=== PATIENT | male | born 1965 | race African-American/Black ===

== ENCOUNTER 2018-04-26 09:33 | Inpatient (IN) | payer OTHER ==
[2018-04-26] MEDS: CEPHALEXIN MONOHYDRATE 500 MG CAPSULE (UD) PO SCH (00:30)
[2018-04-26 09:54] VITALS: BMI 18.3
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
[2018-04-26] MEDS ORDERED: guaiFENesin/D-METHORPHAN HB 10 ML UNIT-DOSE CUPS PO PRN (12:11)
[2018-04-26] MEDS ORDERED: P-EPHED 60MG/TRIPROLIDI 2.5MG TABLET PO PRN (12:11)
[2018-04-26] MEDS ORDERED: MENTHOL/PHENOL 1 EACH UD MM PRN (12:11)
[2018-04-26] MEDS ORDERED: MAGNESIUM HYDROX 2400MG/30ML ORAL SUSPENSION 30 ML CUP PO PRN (12:11)
[2018-04-26] MEDS ORDERED: MAGNESIUM CITRATE 300 ML BOTTLE PO PRN (12:11)
[2018-04-26] MEDS ORDERED: LOPERAMIDE HCL 2 MG CAPSULE PO PRN (12:11)
[2018-04-26] MEDS ORDERED: INSULIN (NOVOLOG) ASPART 100 UNITS/ML 10ML VIAL SQ ONE (12:30)
[2018-04-26 16:11] LABS: ALK PHOS 66 U/L (45-117); ANION GAP 7 MMOL/L (8-16); BILIRUBIN,TOTAL 0.2 mg/dL (0.2-1); BLOOD UREA NITROGEN 11 mg/dL (7-18); CALCIUM 8.4 mg/dL (8.5-10.1); CHLORIDE 95 mmol/L (98-107); CO2 27 mmol/L (21-32); CREATININE 0.8 mg/dL (0.55-1.3); POTASSIUM 4.6 mmol/L (3.5-5.1); SGOT/AST 11 U/L (15-37); SGPT/ALT 18 U/L (13-61); SODIUM 130 mmol/L (136-145); TOT PROT 7.6 g/dl (6.4-8.2)
[2018-04-26 16:13] LABS: GLUCOSE,RANDOM 515 mg/dL (74-106)
[2018-04-26 16:18] LABS: HEMATOCRIT 34.5 % (35.4-49); HEMOGLOBIN 11.7 GM/dL (11.7-16.9); MCH 34.6 pg (25.7-33.7); MCHC 34.1 g/dl (32.0-35.9); MEAN CELL VOLUME 101.7 fl (80-96); MEAN PLT VOLUME 8.1 fl (7.5-11.1); PLATELET COUNT 250 K/MM3 (134-434); RBC 3.39 M/mm3 (4.00-5.60); RDW 14.2 % (11.9-15.9); WHITE BLOOD COUNT 7.3 K/mm3 (4.0-10.0)
[2018-04-26] MEDS ORDERED: INSULIN (NOVOLOG) ASPART 100 UNITS/ML 10ML VIAL ONE ×2 (17:02→22:17)
[2018-04-26] MEDS ORDERED: TUBERCULIN PPD 5 TU/0.1ML VIAL ID ONE (17:02)
[2018-04-26] MEDS: INSULIN (NOVOLOG) ASPART 100 UNITS/ML 10ML VIAL SQ SCH ×2 (17:08→22:15)
[2018-04-26] MEDS: ASPIRIN 81 MG CHEWABLE TABLETS PO SCH (17:40)
[2018-04-26 17:55] LABS: URINE APPEARANCE CLEAR; URINE BILIRUBIN NEGATIVE (<2.0 mg/dL); URINE COLOR LTYELLOW; URINE GLUCOSE (UA) 3+ (NEGATIVE); URINE KETONE NEGATIVE (NEGATIVE); URINE LEUK ESTERASE NEGATIVE (NEGATIVE); URINE NITRITE NEGATIVE (NEGATIVE); URINE PROTEIN NEGATIVE (NEGATIVE); URINE UROBILINOGEN NEGATIVE mg/dL (0.2-1.0)
[2018-04-26 18:56] LABS: SICKLE CELL SCREEN NEGATIVE (NEGATIVE)
[2018-04-26] MEDS: THIAMINE HCL 100 MG TABLET (FP) PO SCH (22:06)
[2018-04-26] MEDS: MELATONIN 5 MG TABLETS PO PRN (22:09)
[2018-04-26] MEDS: IBUPROFEN 400 MG TABLET (FP) PO PRN (22:11)
[2018-04-26] MEDS: TOLNAFTATE 1% CREAM 15 GM TUBE TP SCH (23:25)
[2018-04-26] MEDS: BACITRACIN 0.9 GM PACKET TP SCH (23:25)
--- NOTE | 2018-04-26 23:25 | PN ---
S Progress Note (SOAP) Subjective: c/o pain in both feet and toe areas. Increased pain (sharp to "9") when feet palpated. Foot problems for months and expressed concern that may need an amputation in the future. Objective: A & O x 3. Gait steady. Both feet w/ increased whitish dry, flaky skin and cracks in toe folds at bases. Dorsum of both feet w/ superficial cracks and increased erythema and warmth. No lesions or exudate. Tenderness of toes and feet upon palpation. Pedal pulse present bilaterally. (+) pitting edema toes to ankle. Vital Signs 04/26/18 21:00 Pulse Rate 123 H Blood Pressure 110/71 04/26/18 04/26/18 12:57 12:57 WBC 7.3 RBC 3.39 L Hgb 11.7 Hct 34.5 L MCV 101.7 H MCHC 34.1 RDW 14.2 Plt Count 250 Sodium 130 L Potassium 4.6 Chloride 95 L Carbon Dioxide 27 Anion Gap 7 L BUN 11 Creatinine 0.8 CMP Sodium 130 mmol/L (136-145) L 04/26/18 12:57 Potassium 4.6 mmol/L (3.5-5.1) 04/26/18 12:57 Chloride 95 mmol/L (98-107) L 04/26/18 12:57 Carbon Dioxide 27 mmol/L (21-32) 04/26/18 12:57 Anion Gap 7 MMOL/L (8-16) L 04/26/18 12:57 BUN 11 mg/dL (7-18) 04/26/18 12:57 Creatinine 0.8 mg/dL (0.55-1.3) 04/26/18 12:57 Creat Clearance w eGFR > 60 (>60) 04/26/18 12:57 POC Glucometer 436 UNITS (80-120) 04/26/18 20:33 Random Glucose 515 mg/dL (74-106) H* 04/26/18 12:57 Calcium 8.4 mg/dL (8.5-10.1) L 04/26/18 12:57 Total Bilirubin 0.2 mg/dL (0.2-1) 04/26/18 12:57 AST 11 U/L (15-37) L 04/26/18 12:57 ALT 18 U/L (13-61) 04/26/18 12:57 Alkaline Phosphatase 66 U/L (45-117) 04/26/18 12:57 Total Protein 7.6 g/dl (6.4-8.2) 04/26/18 12:57 Albumin 2.0 g/dl (3.4-5.0) L 04/26/18 12:57 Labs reviewed. Assessment: Uncontrolled DM Tinea Pedis Dorsal Cellulitis both feet. Plan: Tolnaftate cream and bacitracin cream to toes and feet. Keflex 500 mg PO Q6H Continue Novolog sliding scale.
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
[2018-04-27] MEDS: CEPHALEXIN MONOHYDRATE 500 MG CAPSULE (UD) PO SCH ×3 (06:25→18:59)
[2018-04-27] MEDS ORDERED: INSULIN (NOVOLOG) ASPART 100 UNITS/ML 10ML VIAL ONE ×2 (07:51→12:13)
[2018-04-27] MEDS: INSULIN (NOVOLOG) ASPART 100 UNITS/ML 10ML VIAL SQ SCH ×4 (07:52→22:22)
--- NOTE | 2018-04-27 10:34 | EKG ---
Test Reason : Blood Pressure : / mmHG Vent. Rate : 094 BPM Atrial Rate : 094 BPM P-R Int : 116 ms QRS Dur : 086 ms QT Int : 352 ms P-R-T Axes : 082 071 082 degrees QTc Int : 440 ms NORMAL SINUS RHYTHM NORMAL ECG NO PREVIOUS ECGS AVAILABLE Confirmed by Nick Knight MD ([id number]) on 04/27/2018 10:34:13 AM Referred By: Confirmed By:Nick Knight MD
[2018-04-27] MEDS: PRENATAL VITAMINS W/ FOLIC ACID TABLET (FP) PO SCH (10:51)
[2018-04-27] MEDS: ASPIRIN 81 MG CHEWABLE TABLETS PO SCH (10:51)
[2018-04-27] MEDS: BACITRACIN 0.9 GM PACKET TP SCH ×2 (10:51→22:08)
[2018-04-27] MEDS: NICOTINE 21 MG/24 HOURS TOPICAL PATCH TD SCH (10:52)
[2018-04-27] MEDS: IBUPROFEN 400 MG TABLET (FP) PO PRN (10:52)
[2018-04-27] MEDS: TOLNAFTATE 1% CREAM 15 GM TUBE TP SCH ×2 (10:54→22:09)
[2018-04-27] MEDS: THIAMINE HCL 100 MG TABLET (FP) PO SCH (22:08)
[2018-04-27] MEDS: MELATONIN 5 MG TABLETS PO PRN (22:09)
[2018-04-27] MEDS: ACETAMINOPHEN 325 MG TABLET (FP) PO PRN (22:10)
[2018-04-28] MEDS: CEPHALEXIN MONOHYDRATE 500 MG CAPSULE (UD) PO SCH ×5 (00:42→23:01)
[2018-04-28] MEDS ORDERED: INSULIN (NOVOLOG) ASPART 100 UNITS/ML 10ML VIAL ONE ×3 (07:32→16:53)
[2018-04-28] MEDS: INSULIN (NOVOLOG) ASPART 100 UNITS/ML 10ML VIAL SQ SCH ×4 (07:46→21:54)
[2018-04-28] MEDS: IBUPROFEN 400 MG TABLET (FP) PO PRN (09:38)
[2018-04-28] MEDS: ASPIRIN 81 MG CHEWABLE TABLETS PO SCH (10:13)
[2018-04-28] MEDS: BACITRACIN 0.9 GM PACKET TP SCH ×2 (10:13→21:52)
[2018-04-28] MEDS: NICOTINE 21 MG/24 HOURS TOPICAL PATCH TD SCH (10:14)
[2018-04-28] MEDS: TOLNAFTATE 1% CREAM 15 GM TUBE TP SCH ×2 (10:14→22:02)
[2018-04-28] MEDS: PRENATAL VITAMINS W/ FOLIC ACID TABLET (FP) PO SCH (10:14)
--- NOTE | 2018-04-28 14:08 | PN ---
[facility] Progress Note Note: PT WAS UNABLE TO FURNISH COMPLETE INFORMATION ON HIS CURRENT MEDICATIONS ON ADMISSION. PT'S OUTSIDE PHARMACY ONLINE INDICATED PT'S MEDS WHICH WERE FILLED AT [facility] ON [address] [place] [address] PH: [phone]. NURSE YFN CALLED AND VERIFIED HIS MEDICATIONS WITH THE PHARMACIST, MS REID. IN THE HOME MED LIST HERE. PT'S RX PRESCRIBER IS GIVEN ALBERT BRADY AT [facility], PH:[phone] [id number]. PT HAS BEEN C/O FEET PAIN WITH NUMBNESS,DRY, SCALY, SLIGHTLY SWOLLEN RIGHT FOOT > LEFT AND A HX OF PERIPHERAL NEUROPATHY. AND STATES ON MEDICINE FOR FEET PAIN. CURRENTLY ON KEFLEX FOR CELLULITIS OF RIGHT FOOT. Vital Signs 04/28/18 06:52 Temperature 98.2 F Pulse Rate 73 Respiratory 16 Rate Blood Pressure 123/74 Laboratory Tests 04/26/18 04/26/18 04/26/18 11:52 12:57 12:57 WBC 7.3 RBC 3.39 L Hgb 11.7 Hct 34.5 L MCV 101.7 H MCH 34.6 H MCHC 34.1 RDW 14.2 Plt Count 250 MPV 8.1 Sickle Cell Screen Negative Sodium 130 L Potassium 4.6 Chloride 95 L Carbon Dioxide 27 Anion Gap 7 L BUN 11 Creatinine 0.8 Creat Clearance w eGFR > 60 POC Glucometer 569 Random Glucose 515 H* Calcium 8.4 L Total Bilirubin 0.2 AST 11 L ALT 18 Alkaline Phosphatase 66 Total Protein 7.6 Albumin 2.0 L Urine Color Urine Appearance Urine pH Ur Specific [place] Urine Protein Urine Glucose (UA) Urine Ketones Urine Blood Urine Nitrite Urine Bilirubin Urine Urobilinogen Ur Leukocyte Esterase RPR Titer 04/26/18 04/26/18 04/26/18 12:57 15:25 17:00 WBC RBC Hgb Hct MCV MCH MCHC RDW Plt Count MPV Sickle Cell Screen Sodium Potassium Chloride Carbon Dioxide Anion Gap BUN Creatinine Creat Clearance w eGFR POC Glucometer 507 Random Glucose Calcium Total Bilirubin AST ALT Alkaline Phosphatase Total Protein Albumin Urine Color Ltyellow Urine Appearance Clear Urine pH 6.0 Ur Specific [place] 1.030 Urine Protein Negative Urine Glucose (UA) 3+ H Urine Ketones Negative Urine Blood Negative Urine Nitrite Negative Urine Bilirubin Negative Urine Urobilinogen Negative Ur Leukocyte Esterase Negative RPR Titer Nonreactive 04/26/18 04/27/18 04/27/18 20:33 06:27 12:07 WBC RBC Hgb Hct MCV MCH MCHC RDW Plt Count MPV Sickle Cell Screen Sodium Potassium Chloride Carbon Dioxide Anion Gap BUN Creatinine Creat Clearance w eGFR POC Glucometer 436 311 > 600 Random Glucose Calcium Total Bilirubin AST ALT Alkaline Phosphatase Total Protein Albumin Urine Color Urine Appearance Urine pH Ur Specific [place] Urine Protein Urine Glucose (UA) Urine Ketones Urine Blood Urine Nitrite Urine Bilirubin Urine Urobilinogen Ur Leukocyte Esterase RPR Titer 04/27/18 04/27/18 04/27/18 12:10 16:57 22:17 WBC RBC Hgb Hct MCV MCH MCHC RDW Plt Count MPV Sickle Cell Screen Sodium Potassium Chloride Carbon Dioxide Anion Gap BUN Creatinine Creat Clearance w eGFR POC Glucometer 434 446 409 Random Glucose Calcium Total Bilirubin AST ALT Alkaline Phosphatase Total Protein Albumin Urine Color Urine Appearance Urine pH Ur Specific [place] Urine Protein Urine Glucose (UA) Urine Ketones Urine Blood Urine Nitrite Urine Bilirubin Urine Urobilinogen Ur Leukocyte Esterase RPR Titer 04/28/18 04/28/18 06:22 11:55 WBC RBC Hgb Hct MCV MCH MCHC RDW Plt Count MPV Sickle Cell Screen Sodium Potassium Chloride Carbon Dioxide Anion Gap BUN Creatinine Creat Clearance w eGFR POC Glucometer 319 540 Random Glucose Calcium Total Bilirubin AST ALT Alkaline Phosphatase Total Protein Albumin Urine Color Urine Appearance Urine pH Ur Specific [place] Urine Protein Urine Glucose (UA) Urine Ketones Urine Blood Urine Nitrite Urine Bilirubin Urine Urobilinogen Ur Leukocyte Esterase RPR Titer IMPRESSION:UNCONTROLLED DM PLAN:RESTART BASAL INSULIN 20 UNITS HS DIRECTED RE-EVALUATE AND ADJUST NEEDED GABAPENTIN 300 MG PO BID HOLD BP MEDS LISINOPRIL 20 MG/HCTZ 12.5 MG
[2018-04-28] MEDS: THIAMINE HCL 100 MG TABLET (FP) PO SCH (21:55)
[2018-04-28] MEDS: GABAPENTIN 300 MG CAPSULE (FP) PO SCH (21:57)
[2018-04-28] MEDS: hydrOXYzine PAMOATE 25 MG CAPSULE (FP) PO PRN (21:57)
[2018-04-28] MEDS: INSULIN (LEVEMIR) 100 UNITS/ML UNITS SQ SCH (21:57)
[2018-04-29] MEDS: CEPHALEXIN MONOHYDRATE 500 MG CAPSULE (UD) PO SCH ×3 (06:39→18:38)
[2018-04-29] MEDS: INSULIN (NOVOLOG) ASPART 100 UNITS/ML 10ML VIAL SQ SCH ×4 (07:25→21:58)
[2018-04-29] MEDS: PRENATAL VITAMINS W/ FOLIC ACID TABLET (FP) PO SCH (10:24)
[2018-04-29] MEDS: GABAPENTIN 300 MG CAPSULE (FP) PO SCH ×2 (10:24→21:55)
[2018-04-29] MEDS: BACITRACIN 0.9 GM PACKET TP SCH ×2 (10:24→21:55)
[2018-04-29] MEDS: ASPIRIN 81 MG CHEWABLE TABLETS PO SCH (10:24)
[2018-04-29] MEDS: TOLNAFTATE 1% CREAM 15 GM TUBE TP SCH ×2 (10:25→22:00)
[2018-04-29] MEDS: NICOTINE 21 MG/24 HOURS TOPICAL PATCH TD SCH (10:25)
[2018-04-29] MEDS ORDERED: INSULIN (NOVOLOG) ASPART 100 UNITS/ML 10ML VIAL ONE ×3 (12:06→22:14)
[2018-04-29] MEDS: INSULIN (LEVEMIR) 100 UNITS/ML UNITS SQ SCH (21:55)
[2018-04-29] MEDS: THIAMINE HCL 100 MG TABLET (FP) PO SCH (21:55)
[2018-04-29] MEDS: MELATONIN 5 MG TABLETS PO PRN (21:59)
[2018-04-29] MEDS: IBUPROFEN 400 MG TABLET (FP) PO PRN (21:59)
[2018-04-30] MEDS: CEPHALEXIN MONOHYDRATE 500 MG CAPSULE (UD) PO SCH ×5 (00:01→23:20)
[2018-04-30] MEDS: INSULIN (NOVOLOG) ASPART 100 UNITS/ML 10ML VIAL SQ SCH ×4 (06:29→22:12)
[2018-04-30] MEDS: BACITRACIN 0.9 GM PACKET TP SCH ×2 (10:18→22:12)
[2018-04-30] MEDS: PRENATAL VITAMINS W/ FOLIC ACID TABLET (FP) PO SCH (10:18)
[2018-04-30] MEDS: ASPIRIN 81 MG CHEWABLE TABLETS PO SCH (10:18)
[2018-04-30] MEDS: GABAPENTIN 300 MG CAPSULE (FP) PO SCH ×2 (10:18→22:19)
[2018-04-30] MEDS: NICOTINE 21 MG/24 HOURS TOPICAL PATCH TD SCH (10:19)
[2018-04-30] MEDS: TOLNAFTATE 1% CREAM 15 GM TUBE TP SCH ×2 (10:20→22:12)
[2018-04-30] MEDS ORDERED: INSULIN (NOVOLOG) ASPART 100 UNITS/ML 10ML VIAL ONE (12:06)
[2018-04-30] MEDS: MELATONIN 5 MG TABLETS PO PRN (22:09)
[2018-04-30] MEDS: THIAMINE HCL 100 MG TABLET (FP) PO SCH (22:09)
[2018-04-30] MEDS: hydrOXYzine PAMOATE 25 MG CAPSULE (FP) PO PRN (22:11)
[2018-04-30] MEDS: ACETAMINOPHEN 325 MG TABLET (FP) PO PRN (22:11)
[2018-04-30] MEDS: INSULIN (LEVEMIR) 100 UNITS/ML UNITS SQ SCH (22:13)
[2018-05-01] MEDS: CEPHALEXIN MONOHYDRATE 500 MG CAPSULE (UD) PO SCH ×4 (06:14→23:15)
[2018-05-01] MEDS: INSULIN (NOVOLOG) ASPART 100 UNITS/ML 10ML VIAL SQ SCH ×4 (06:16→21:11)
[2018-05-01] MEDS: PRENATAL VITAMINS W/ FOLIC ACID TABLET (FP) PO SCH (10:14)
[2018-05-01] MEDS: ASPIRIN 81 MG CHEWABLE TABLETS PO SCH (10:14)
[2018-05-01] MEDS: GABAPENTIN 300 MG CAPSULE (FP) PO SCH ×2 (10:14→22:11)
[2018-05-01] MEDS: BACITRACIN 0.9 GM PACKET TP SCH ×2 (10:15→22:09)
[2018-05-01] MEDS: TOLNAFTATE 1% CREAM 15 GM TUBE TP SCH ×2 (10:15→22:12)
[2018-05-01] MEDS: NICOTINE 21 MG/24 HOURS TOPICAL PATCH TD SCH (10:15)
[2018-05-01] MEDS ORDERED: INSULIN (NOVOLOG) ASPART 100 UNITS/ML 10ML VIAL ONE ×3 (12:00→20:33)
[2018-05-01] MEDS: ACETAMINOPHEN 325 MG TABLET (FP) PO PRN (20:28)
[2018-05-01] MEDS: INSULIN (LEVEMIR) 100 UNITS/ML UNITS SQ SCH (21:10)
[2018-05-01] MEDS: MELATONIN 5 MG TABLETS PO PRN (22:10)
[2018-05-01] MEDS: THIAMINE HCL 100 MG TABLET (FP) PO SCH (22:12)
[2018-05-02] MEDS: CEPHALEXIN MONOHYDRATE 500 MG CAPSULE (UD) PO SCH ×4 (06:52→23:41)
[2018-05-02] MEDS: INSULIN (NOVOLOG) ASPART 100 UNITS/ML 10ML VIAL SQ SCH ×4 (06:53→21:42)
[2018-05-02] MEDS: ASPIRIN 81 MG CHEWABLE TABLETS PO SCH (10:15)
[2018-05-02] MEDS: BACITRACIN 0.9 GM PACKET TP SCH ×2 (10:15→21:44)
[2018-05-02] MEDS: GABAPENTIN 300 MG CAPSULE (FP) PO SCH ×2 (10:15→21:44)
[2018-05-02] MEDS: TOLNAFTATE 1% CREAM 15 GM TUBE TP SCH ×2 (10:16→21:45)
[2018-05-02] MEDS: NICOTINE 21 MG/24 HOURS TOPICAL PATCH TD SCH (10:16)
[2018-05-02] MEDS: PRENATAL VITAMINS W/ FOLIC ACID TABLET (FP) PO SCH (10:16)
[2018-05-02] MEDS: ACETAMINOPHEN 325 MG TABLET (FP) PO PRN (10:17)
[2018-05-02] MEDS ORDERED: INSULIN (NOVOLOG) ASPART 100 UNITS/ML 10ML VIAL ONE (11:42)
[2018-05-02] MEDS: INSULIN (LEVEMIR) 100 UNITS/ML UNITS SQ SCH (21:41)
[2018-05-02] MEDS: THIAMINE HCL 100 MG TABLET (FP) PO SCH (21:44)
[2018-05-02] MEDS: IBUPROFEN 400 MG TABLET (FP) PO PRN (21:44)
[2018-05-02] MEDS: MELATONIN 5 MG TABLETS PO PRN (21:45)
[2018-05-02] MEDS: MAG HYDROX/AL HYDROX/SIMETH 30 ML UNIT-DOSE CUP PO PRN (23:36)
[2018-05-03] MEDS: CEPHALEXIN MONOHYDRATE 500 MG CAPSULE (UD) PO SCH ×4 (06:07→23:24)
[2018-05-03] MEDS: INSULIN (NOVOLOG) ASPART 100 UNITS/ML 10ML VIAL SQ SCH ×4 (06:08→21:47)
[2018-05-03] MEDS: GABAPENTIN 300 MG CAPSULE (FP) PO SCH ×3 (10:45→21:44)
[2018-05-03] MEDS: PRENATAL VITAMINS W/ FOLIC ACID TABLET (FP) PO SCH (10:45)
[2018-05-03] MEDS: BACITRACIN 0.9 GM PACKET TP SCH ×2 (10:45→21:44)
[2018-05-03] MEDS: ASPIRIN 81 MG CHEWABLE TABLETS PO SCH (10:45)
[2018-05-03] MEDS: TOLNAFTATE 1% CREAM 15 GM TUBE TP SCH ×2 (10:46→21:50)
[2018-05-03] MEDS: NICOTINE 21 MG/24 HOURS TOPICAL PATCH TD SCH (10:46)
[2018-05-03] MEDS: IBUPROFEN 400 MG TABLET (FP) PO PRN ×2 (10:48→21:46)
--- NOTE | 2018-05-03 11:01 | PN ---
[facility] Progress Note Note: PT REPORTS NEUROPATHY SYMPTOMS AND REQUESTING INCREASE IN GABAPENTIN FREQUENCY. ALSO REPORTS FASTING BLOOD SUGAR RESULT IS LOW IN THE MORNING AND WANTS TO STAY ON 2O UNITS OF BASAL INSULIN. Vital Signs 05/03/18 07:04 Temperature 98.6 F Pulse Rate 86 Respiratory 16 Rate Blood Pressure 116/74 Laboratory Tests 04/26/18 04/26/18 04/26/18 11:52 12:57 12:57 WBC 7.3 RBC 3.39 L Hgb 11.7 Hct 34.5 L MCV 101.7 H MCH 34.6 H MCHC 34.1 RDW 14.2 Plt Count 250 MPV 8.1 Sickle Cell Screen Negative Sodium 130 L Potassium 4.6 Chloride 95 L Carbon Dioxide 27 Anion Gap 7 L BUN 11 Creatinine 0.8 Creat Clearance w eGFR > 60 POC Glucometer 569 Random Glucose 515 H* Calcium 8.4 L Total Bilirubin 0.2 AST 11 L ALT 18 Alkaline Phosphatase 66 Total Protein 7.6 Albumin 2.0 L Urine Color Urine Appearance Urine pH Ur Specific [place] Urine Protein Urine Glucose (UA) Urine Ketones Urine Blood Urine Nitrite Urine Bilirubin Urine Urobilinogen Ur Leukocyte Esterase RPR Titer 04/26/18 04/26/18 04/26/18 12:57 15:25 17:00 WBC RBC Hgb Hct MCV MCH MCHC RDW Plt Count MPV Sickle Cell Screen Sodium Potassium Chloride Carbon Dioxide Anion Gap BUN Creatinine Creat Clearance w eGFR POC Glucometer 507 Random Glucose Calcium Total Bilirubin AST ALT Alkaline Phosphatase Total Protein Albumin Urine Color Ltyellow Urine Appearance Clear Urine pH 6.0 Ur Specific [place] 1.030 Urine Protein Negative Urine Glucose (UA) 3+ H Urine Ketones Negative Urine Blood Negative Urine Nitrite Negative Urine Bilirubin Negative Urine Urobilinogen Negative Ur Leukocyte Esterase Negative RPR Titer Nonreactive 04/26/18 04/27/18 04/27/18 20:33 06:27 12:07 WBC RBC Hgb Hct MCV MCH MCHC RDW Plt Count MPV Sickle Cell Screen Sodium Potassium Chloride Carbon Dioxide Anion Gap BUN Creatinine Creat Clearance w eGFR POC Glucometer 436 311 > 600 Random Glucose Calcium Total Bilirubin AST ALT Alkaline Phosphatase Total Protein Albumin Urine Color Urine Appearance Urine pH Ur Specific [place] Urine Protein Urine Glucose (UA) Urine Ketones Urine Blood Urine Nitrite Urine Bilirubin Urine Urobilinogen Ur Leukocyte Esterase RPR Titer 04/27/18 04/27/18 04/27/18 12:10 16:57 22:17 WBC RBC Hgb Hct MCV MCH MCHC RDW Plt Count MPV Sickle Cell Screen Sodium Potassium Chloride Carbon Dioxide Anion Gap BUN Creatinine Creat Clearance w eGFR POC Glucometer 434 446 409 Random Glucose Calcium Total Bilirubin AST ALT Alkaline Phosphatase Total Protein Albumin Urine Color Urine Appearance Urine pH Ur Specific [place] Urine Protein Urine Glucose (UA) Urine Ketones Urine Blood Urine Nitrite Urine Bilirubin Urine Urobilinogen Ur Leukocyte Esterase RPR Titer 04/28/18 04/28/18 04/28/18 06:22 11:55 16:48 WBC RBC Hgb Hct MCV MCH MCHC RDW Plt Count MPV Sickle Cell Screen Sodium Potassium Chloride Carbon Dioxide Anion Gap BUN Creatinine Creat Clearance w eGFR POC Glucometer 319 540 430 Random Glucose Calcium Total Bilirubin AST ALT Alkaline Phosphatase Total Protein Albumin Urine Color Urine Appearance Urine pH Ur Specific [place] Urine Protein Urine Glucose (UA) Urine Ketones Urine Blood Urine Nitrite Urine Bilirubin Urine Urobilinogen Ur Leukocyte Esterase RPR Titer 04/28/18 04/29/18 04/29/18 20:45 06:41 11:55 WBC RBC Hgb Hct MCV MCH MCHC RDW Plt Count MPV Sickle Cell Screen Sodium Potassium Chloride Carbon Dioxide Anion Gap BUN Creatinine Creat Clearance w eGFR POC Glucometer 376 111 467 Random Glucose Calcium Total Bilirubin AST ALT Alkaline Phosphatase Total Protein Albumin Urine Color Urine Appearance Urine pH Ur Specific [place] Urine Protein Urine Glucose (UA) Urine Ketones Urine Blood Urine Nitrite Urine Bilirubin Urine Urobilinogen Ur Leukocyte Esterase RPR Titer 04/29/18 04/29/18 04/30/18 16:31 20:50 06:28 WBC RBC Hgb Hct MCV MCH MCHC RDW Plt Count MPV Sickle Cell Screen Sodium Potassium Chloride Carbon Dioxide Anion Gap BUN Creatinine Creat Clearance w eGFR POC Glucometer 364 449 103 Random Glucose Calcium Total Bilirubin AST ALT Alkaline Phosphatase Total Protein Albumin Urine Color Urine Appearance Urine pH Ur Specific [place] Urine Protein Urine Glucose (UA) Urine Ketones Urine Blood Urine Nitrite Urine Bilirubin Urine Urobilinogen Ur Leukocyte Esterase RPR Titer 04/30/18 04/30/18 04/30/18 12:01 16:48 20:31 WBC RBC Hgb Hct MCV MCH MCHC RDW Plt Count MPV Sickle Cell Screen Sodium Potassium Chloride Carbon Dioxide Anion Gap BUN Creatinine Creat Clearance w eGFR POC Glucometer 394 383 341 Random Glucose Calcium Total Bilirubin AST ALT Alkaline Phosphatase Total Protein Albumin Urine Color Urine Appearance Urine pH Ur Specific [place] Urine Protein Urine Glucose (UA) Urine Ketones Urine Blood Urine Nitrite Urine Bilirubin Urine Urobilinogen Ur Leukocyte Esterase RPR Titer 05/01/18 05/01/18 05/01/18 06:15 11:11 16:36 WBC RBC Hgb Hct MCV MCH MCHC RDW Plt Count MPV Sickle Cell Screen Sodium Potassium Chloride Carbon Dioxide Anion Gap BUN Creatinine Creat Clearance w eGFR POC Glucometer 115 449 402 Random Glucose Calcium Total Bilirubin AST ALT Alkaline Phosphatase Total Protein Albumin Urine Color Urine Appearance Urine pH Ur Specific [place] Urine Protein Urine Glucose (UA) Urine Ketones Urine Blood Urine Nitrite Urine Bilirubin Urine Urobilinogen Ur Leukocyte Esterase RPR Titer 05/01/18 05/02/18 05/02/18 20:25 06:52 11:40 WBC RBC Hgb Hct MCV MCH MCHC RDW Plt Count MPV Sickle Cell Screen Sodium Potassium Chloride Carbon Dioxide Anion Gap BUN Creatinine Creat Clearance w eGFR POC Glucometer 385 143 478 Random Glucose Calcium Total Bilirubin AST ALT Alkaline Phosphatase Total Protein Albumin Urine Color Urine Appearance Urine pH Ur Specific [place] Urine Protein Urine Glucose (UA) Urine Ketones Urine Blood Urine Nitrite Urine Bilirubin Urine Urobilinogen Ur Leukocyte Esterase RPR Titer 05/02/18 05/02/18 05/03/18 17:01 21:39 06:07 WBC RBC Hgb Hct MCV MCH MCHC RDW Plt Count MPV Sickle Cell Screen Sodium Potassium Chloride Carbon Dioxide Anion Gap BUN Creatinine Creat Clearance w eGFR POC Glucometer 378 382 112 Random Glucose Calcium Total Bilirubin AST ALT Alkaline Phosphatase Total Protein Albumin Urine Color Urine Appearance Urine pH Ur Specific [place] Urine Protein Urine Glucose (UA) Urine Ketones Urine Blood Urine Nitrite Urine Bilirubin Urine Urobilinogen Ur Leukocyte Esterase RPR Titer A:CHRONIC PAIN HX NEUROPATHY PLAN:GABAPENTIN 300 MG PO TID
[2018-05-03] MEDS ORDERED: INSULIN (NOVOLOG) ASPART 100 UNITS/ML 10ML VIAL ONE ×3 (12:01→22:43)
[2018-05-03] MEDS: THIAMINE HCL 100 MG TABLET (FP) PO SCH (21:44)
[2018-05-03] MEDS: MELATONIN 5 MG TABLETS PO PRN (21:46)
[2018-05-03] MEDS: MAG HYDROX/AL HYDROX/SIMETH 30 ML UNIT-DOSE CUP PO PRN (21:47)
[2018-05-03] MEDS: INSULIN (LEVEMIR) 100 UNITS/ML UNITS SQ SCH (21:49)
[2018-05-04] MEDS: CEPHALEXIN MONOHYDRATE 500 MG CAPSULE (UD) PO SCH ×3 (06:26→17:07)
[2018-05-04] MEDS: GABAPENTIN 300 MG CAPSULE (FP) PO SCH ×3 (06:26→21:09)
[2018-05-04] MEDS: INSULIN (NOVOLOG) ASPART 100 UNITS/ML 10ML VIAL SQ SCH ×4 (06:26→21:08)
[2018-05-04] MEDS: TOLNAFTATE 1% CREAM 15 GM TUBE TP SCH ×2 (10:39→21:10)
[2018-05-04] MEDS: NICOTINE 21 MG/24 HOURS TOPICAL PATCH TD SCH (10:39)
[2018-05-04] MEDS: PRENATAL VITAMINS W/ FOLIC ACID TABLET (FP) PO SCH (10:39)
[2018-05-04] MEDS: ASPIRIN 81 MG CHEWABLE TABLETS PO SCH (10:39)
[2018-05-04] MEDS: BACITRACIN 0.9 GM PACKET TP SCH ×2 (10:39→21:05)
[2018-05-04] MEDS ORDERED: INSULIN (NOVOLOG) ASPART 100 UNITS/ML 10ML VIAL ONE ×2 (12:01→21:08)
[2018-05-04] MEDS: INSULIN (LEVEMIR) 100 UNITS/ML UNITS SQ SCH (21:05)
[2018-05-04] MEDS: MELATONIN 5 MG TABLETS PO PRN (21:09)
[2018-05-04] MEDS: THIAMINE HCL 100 MG TABLET (FP) PO SCH (21:10)
[2018-05-05] MEDS: CEPHALEXIN MONOHYDRATE 500 MG CAPSULE (UD) PO SCH ×5 (00:09→23:10)
[2018-05-05] MEDS: GABAPENTIN 300 MG CAPSULE (FP) PO SCH ×3 (06:16→21:05)
[2018-05-05] MEDS: INSULIN (NOVOLOG) ASPART 100 UNITS/ML 10ML VIAL SQ SCH ×4 (06:17→21:05)
[2018-05-05] MEDS: BACITRACIN 0.9 GM PACKET TP SCH ×2 (10:28→22:21)
[2018-05-05] MEDS: PRENATAL VITAMINS W/ FOLIC ACID TABLET (FP) PO SCH (10:28)
[2018-05-05] MEDS: TOLNAFTATE 1% CREAM 15 GM TUBE TP SCH ×2 (10:28→22:21)
[2018-05-05] MEDS: NICOTINE 21 MG/24 HOURS TOPICAL PATCH TD SCH (10:28)
[2018-05-05] MEDS: ASPIRIN 81 MG CHEWABLE TABLETS PO SCH (10:28)
[2018-05-05] MEDS: IBUPROFEN 400 MG TABLET (FP) PO PRN ×2 (10:29→21:08)
[2018-05-05] MEDS ORDERED: INSULIN (NOVOLOG) ASPART 100 UNITS/ML 10ML VIAL ONE ×4 (11:51→22:26)
[2018-05-05] MEDS ORDERED: INSULIN (LEVEMIR) 100 UNITS/ML UNITS SQ ONE (20:45)
[2018-05-05] MEDS: THIAMINE HCL 100 MG TABLET (FP) PO SCH (21:05)
[2018-05-05] MEDS: INSULIN (LEVEMIR) 100 UNITS/ML UNITS SQ SCH (21:06)
[2018-05-05] MEDS: MELATONIN 5 MG TABLETS PO PRN (21:08)
[2018-05-06] MEDS: CEPHALEXIN MONOHYDRATE 500 MG CAPSULE (UD) PO SCH ×3 (06:31→17:14)
[2018-05-06] MEDS: GABAPENTIN 300 MG CAPSULE (FP) PO SCH ×3 (06:31→21:49)
[2018-05-06] MEDS: INSULIN (NOVOLOG) ASPART 100 UNITS/ML 10ML VIAL SQ SCH ×4 (06:31→21:48)
[2018-05-06] MEDS: ASPIRIN 81 MG CHEWABLE TABLETS PO SCH (11:05)
[2018-05-06] MEDS: PRENATAL VITAMINS W/ FOLIC ACID TABLET (FP) PO SCH (11:05)
[2018-05-06] MEDS: BACITRACIN 0.9 GM PACKET TP SCH ×2 (11:05→22:15)
[2018-05-06] MEDS: NICOTINE 21 MG/24 HOURS TOPICAL PATCH TD SCH (11:05)
[2018-05-06] MEDS: TOLNAFTATE 1% CREAM 15 GM TUBE TP SCH ×2 (11:06→22:15)
[2018-05-06] MEDS ORDERED: INSULIN (NOVOLOG) ASPART 100 UNITS/ML 10ML VIAL ONE ×2 (11:49→16:41)
--- NOTE | 2018-05-06 17:59 | PN ---
Psychiatric Progress Note Vital Signs: Vital Signs Period Temp Pulse Resp BP Sys/Griggs Pulse Ox Last 24 Hr 98.9 F 86 16-18 120/83 Date of Session: 05/05/18 Chief Complaint:: "Discharge" HPI: Patient admitted to for cocaine and opiate dependence. ROS: Significant for type 2 diabetes mellitus. Current Medications: Active Medications Generic Name Dose Route Start Last Admin Trade Name Freq PRN Reason Stop Dose Admin Acetaminophen 650 mg 04/26/18 12:11 05/02/18 10:17 Tylenol - PO 650 mg Q4H PRN Administration FEVER Al Hydroxide/Mg Hydroxide 30 ml 04/26/18 12:11 05/03/18 21:47 Mylanta Oral Suspension - PO 30 ml Q6H PRN Administration DYSPEPSIA Aspirin 81 mg 04/26/18 12:30 05/06/18 11:05 Asa - PO 81 mg DAILY [place] Administration Bacitracin 0.9 gm 04/26/18 23:15 05/06/18 11:05 Bacitracin - TP Not Given BID [place] Cephalexin HCl 500 mg 04/27/18 00:00 05/06/18 17:14 Keflex - PO 05/06/18 18:01 500 mg Q6HPO [place] Administration Eucalyptus/Menthol/Phenol/Sorbitol 1 each 04/26/18 12:11 Cepastat Lozenge - MM Q4H PRN SORE THROAT Gabapentin 300 mg 05/03/18 14:00 05/06/18 14:28 Neurontin - PO 300 mg TID [place] Administration Guaifenesin 10 ml 04/26/18 12:11 Robitussin Dm - PO Q6H PRN COUGH Hydroxyzine Pamoate 25 mg 04/26/18 12:11 04/30/18 22:11 Vistaril - PO 25 mg Q4H PRN Administration AGITATION Ibuprofen 400 mg 04/26/18 12:11 05/05/18 21:08 Motrin - PO 400 mg Q6H PRN Administration Pain level 4-6 Insulin Aspart 0 units 04/26/18 16:30 05/06/18 16:42 Novolog Vial SQ 8 units ACHS [place] Administration Protocol Insulin Detemir 20 units 04/28/18 22:00 05/05/18 21:06 Levemir Vial SQ 20 unit HS [place] Administration Loperamide HCl 4 mg 04/26/18 12:11 Imodium - PO Q6H PRN DIARRHEA Magnesium Citrate 300 ml 04/26/18 12:11 Citroma - PO Q48H PRN CONSTIPATION Magnesium Hydroxide 30 ml 04/26/18 12:11 05/03/18 23:29 Milk Of Magnesia - PO 30 ml DAILY PRN Administration CONSTIPATION Melatonin 5 mg 04/26/18 22:00 05/05/18 21:08 Melatonin PO 5 mg HS PRN Administration INSOMNIA Nicotine 21 mg 04/27/18 10:00 05/06/18 11:05 Nicoderm Patch - TD Not Given DAILY [place] Multivit/Folic Acid/Iron 1 tab 04/27/18 10:00 05/06/18 11:05 Vitamins (Sjr) - PO 1 tab DAILY [place] Administration Pseudoephedrine/Triprolidine 1 combo 04/26/18 12:11 Actifed - PO TID PRN NASAL CONGESTION Thiamine HCl 100 mg 04/26/18 22:00 05/05/18 21:05 Vitamin B1 - PO 100 mg HS [place] Administration Tolnaftate 1 applic 04/26/18 23:15 05/06/18 11:06 Tinactin 1% Cream - TP Not Given BID [facility] Medication(s) Change(s): No. Current Side Effect: No Lab tests ordered: No Lab tests reviewed: Yes Provider note:: Patient will complete the rehabilitation program on 05/07/18. He reports being able to meet his treatment goals. Patient will continue to address his issues at the [place] [facility]. Patient is aware of the importance of changing his behavior and the need for more structure in his life. Patient denies psychotic symptons and thoughts to hurt himself or others. Pt is stable for discharge on 05/07/18. Total face to face time:: 35 Mental Status Exam - Mental Status Exam Alert and Oriented to: Time, Place, Person Cognitive Function: Good Patient Appearance: Well Groomed Mood: Euthymic Affect: Appropriate, Mood Congruent Patient Behavior: Appropriate, Cooperative Speech Pattern: Appropriate Thought Process: Intact, Goal Oriented Thought Disorder: Not Present Hallucinations: Denies Suicidal Ideation: Denies Homicidal Ideation: Denies Insight/Judgement: Good Sleep: Fair Appetite: Good Muscle strength/Tone: Normal Gait/Station: Normal Psychiatric Treatment Plan - Problem List (1) Opioid dependence Current Visit: Yes (2) Substance induced mood disorder Current Visit: Yes (3) Substance-induced sleep disorder Current Visit: Yes (4) Schizophrenia Current Visit: No (5) Cocaine dependence Current Visit: Yes Qualifiers: Substance use status: uncomplicated Qualified Code(s): F14.20 - Cocaine dependence, uncomplicated (6) Nicotine dependence Current Visit: Yes
[2018-05-06] MEDS: THIAMINE HCL 100 MG TABLET (FP) PO SCH (21:49)
[2018-05-06] MEDS: INSULIN (LEVEMIR) 100 UNITS/ML UNITS SQ SCH (21:49)
[2018-05-06] MEDS: MELATONIN 5 MG TABLETS PO PRN (21:51)
[2018-05-07] MEDS: hydrOXYzine PAMOATE 25 MG CAPSULE (FP) PO PRN (01:30)
[2018-05-07] MEDS: GABAPENTIN 300 MG CAPSULE (FP) PO SCH (05:44)
[2018-05-07 07:23] VITALS: BP 129/91; PULSE 104; TEMP 99.4
[2018-05-07] MEDS: INSULIN (NOVOLOG) ASPART 100 UNITS/ML 10ML VIAL SQ SCH (07:34)
[2018-05-07] MEDS ORDERED: INSULIN (NOVOLOG) ASPART 100 UNITS/ML 10ML VIAL ONE (07:35)
[2018-05-07] MEDS: ASPIRIN 81 MG CHEWABLE TABLETS PO SCH (09:42)
[2018-05-07] MEDS: BACITRACIN 0.9 GM PACKET TP SCH (09:42)
[2018-05-07] MEDS: PRENATAL VITAMINS W/ FOLIC ACID TABLET (FP) PO SCH (09:42)
[2018-05-07] MEDS: NICOTINE 21 MG/24 HOURS TOPICAL PATCH TD SCH (09:43)
[2018-05-07] MEDS: TOLNAFTATE 1% CREAM 15 GM TUBE TP SCH (09:43)
== END 2018-05-07 09:55 | disposition home or self-care (01) | DRG 772 ==
LOC: YASAS 09:33 → Y5N 12:27
PROVIDERS: ADMIT Psychiatry & Neurology Psychiatry; ATTEND Psychiatry & Neurology Psychiatry
PROC: HZ42ZZZ Group Counseling for Substance Abuse Treatment, Cognitive-Behavioral (ICD-10-PCS; principal; 2018-04-26)
DX: F11.20 Opioid dependence, uncomplicated (principal); F14.20 Cocaine dependence, uncomplicated; F17.210 Nicotine dependence, cigarettes, uncomplicated; F19.24 Other psychoactive substance dependence with psychoactive substance-induced mood disorder; F19.282 Other psychoactive substance dependence with psychoactive substance-induced sleep disorder; F20.9 Schizophrenia, unspecified; F32.9 Major depressive disorder, single episode, unspecified; I10 Essential (primary) hypertension; E11.65 Type 2 diabetes mellitus with hyperglycemia; G62.9 Polyneuropathy, unspecified; B35.3 Tinea pedis; L03.116 Cellulitis of left lower limb; L03.115 Cellulitis of right lower limb; Z79.4 Long term (current) use of insulin; Z79.84 Long term (current) use of oral hypoglycemic drugs; Z91.5 Personal history of self-harm
CPT/HCPCS: 36415; 80053; 81003; 82962; 85027; 85660; 86593; 93005; 93010

== ENCOUNTER 2018-07-14 13:48 | Inpatient (IN) | payer OTHER ==
[2018-07-14 15:41] VITALS: BP 140/93; PULSE 101; TEMP 99.1; BMI 16.1
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
== END 2018-07-14 23:59 | disposition home or self-care (01) | DRG 773 ==
LOC: YASAS 13:48 → Y3N 23:52
PROVIDERS: ADMIT Surgery; ATTEND Surgery
PROC: HZ2ZZZZ Detoxification Services for Substance Abuse Treatment (ICD-10-PCS; principal; 2018-07-14)
DX: F11.23 Opioid dependence with withdrawal (principal); F14.20 Cocaine dependence, uncomplicated; F17.213 Nicotine dependence, cigarettes, with withdrawal; F19.24 Other psychoactive substance dependence with psychoactive substance-induced mood disorder; I10 Essential (primary) hypertension; E11.65 Type 2 diabetes mellitus with hyperglycemia; S00.83XD Contusion of other part of head, subsequent encounter; X58.XXXD Exposure to other specified factors, subsequent encounter; Z79.4 Long term (current) use of insulin
CPT/HCPCS: 82962

== ENCOUNTER 2018-07-14 19:23 | Emergency (ER) | payer OTHER ==
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
[2018-07-14 20:03] VITALS: BP 106/77; PULSE 119; TEMP 99.7; BMI 17.7
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
== END 2018-07-14 23:36 | disposition home or self-care (01) ==
LOC: JER 19:23
DX: S02.2XXA Fracture of nasal bones, initial encounter for closed fracture (principal); Y04.2XXA Assault by strike against or bumped into by another person, initial encounter; Y92.89 Other specified places as the place of occurrence of the external cause; Y99.8 Other external cause status; E11.9 Type 2 diabetes mellitus without complications; Z79.4 Long term (current) use of insulin; I10 Essential (primary) hypertension; F20.9 Schizophrenia, unspecified; F11.10 Opioid abuse, uncomplicated; F14.10 Cocaine abuse, uncomplicated; Z79.82 Long term (current) use of aspirin; Z91.14 Patient's other noncompliance with medication regimen
CPT/HCPCS: 70450-TC; 70486-TC; 82962; 99281-25

== ENCOUNTER 2018-07-15 01:34 | Emergency (ER) | payer OTHER ==
[2018-07-15 01:57] VITALS: BP 119/64; PULSE 106; TEMP 99; BMI 22.8
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
[2018-07-15] MEDS ORDERED: SODIUM CHLORIDE 0.9% 1000 ML INFUS.BAG IV ONE (03:47)
[2018-07-15] MEDS ORDERED: INSULIN REGULAR HUMAN 100 UNITS/ML *VIAL IVPUSH ONE (03:58)
[2018-07-15] MEDS ORDERED: ONDANSETRON 4 MG/2 ML VIAL IVPUSH ONE (03:59)
[2018-07-15] MEDS ORDERED: ONDANSETRON 4 MG/2 ML VIAL ONE (04:02)
[2018-07-15] MEDS ORDERED: INSULIN REGULAR HUMAN 100 UNITS/ML *VIAL ONE (04:02)
[2018-07-15 04:14] LABS: BASO % 1.1 % (0-2.0); EOS % 0.7 % (0-4.5); HEMOGLOBIN 12.6 GM/dL (11.7-16.9); LYMPH % 36.5 % (8-40); MCH 36.2 pg (25.7-33.7); MEAN CELL VOLUME 103.3 fl (80-96); MEAN PLT VOLUME 8.2 fl (7.5-11.1); MONO % 6.4 % (3.8-10.2); NEUT % 55.3 % (42.8-82.8); PLATELET COUNT 209 K/MM3 (134-434); RBC 3.49 M/mm3 (4.00-5.60); RDW 13.6 % (11.9-15.9); WHITE BLOOD COUNT 4.9 K/mm3 (4.0-10.0)
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
[2018-07-15 07:59] LABS: ALBUMIN 3.1 g/dl (3.4-5.0); ALK PHOS 79 U/L (45-117); ANION GAP 15 MMOL/L (8-16); BILIRUBIN,TOTAL 0.5 mg/dL (0.2-1); BLOOD UREA NITROGEN 13 mg/dL (7-18); CALCIUM 8.7 mg/dL (8.5-10.1); CHLORIDE 106 mmol/L (98-107); CO2 20 mmol/L (21-32); CREATININE 1.1 mg/dL (0.55-1.3); POTASSIUM 4.4 mmol/L (3.5-5.1); SGOT/AST 19 U/L (15-37); SGPT/ALT 44 U/L (13-61); SODIUM 140 mmol/L (136-145); TOT PROT 8.6 g/dl (6.4-8.2)
[2018-07-15 08:22] LABS: GLUCOSE,RANDOM 496 mg/dL (74-106)
== END 2018-07-15 06:27 | disposition home or self-care (01) ==
LOC: JER 01:34
PROC: 3E033GC Introduction of Other Therapeutic Substance into Peripheral Vein, Percutaneous Approach (ICD-10-PCS; principal; 2018-07-15)
PROC: 3E033VG Introduction of Insulin into Peripheral Vein, Percutaneous Approach (ICD-10-PCS; 2018-07-15)
DX: E11.65 Type 2 diabetes mellitus with hyperglycemia (principal); Z79.4 Long term (current) use of insulin; I10 Essential (primary) hypertension; F20.9 Schizophrenia, unspecified; F11.10 Opioid abuse, uncomplicated; F14.10 Cocaine abuse, uncomplicated; Z79.82 Long term (current) use of aspirin; Z91.14 Patient's other noncompliance with medication regimen
CPT/HCPCS: 36415; 80053; 82962; 85025; 99283-25; J7030

== ENCOUNTER 2018-07-15 08:11 | Inpatient (IN) | payer OTHER ==
[2018-07-15 09:50] VITALS: BMI 17.5
--- NOTE | 2018-07-15 10:52 | HP ---
COWS - Scale Resting Pulse: 1= [place] 81-100 Sweatin= Chills/Flushing Restless Observation: 3= Extraneous Movement Pupil Size: 1= Pupils >than Normal Bone or Joint Aches: 2= Severe Diffuse Aches Runny Nose/ Eye Tearin= Runny Nose/Eyes GI Upset > 30mins: 2= Nausea/Diarrhea Tremor Observation: 2= Slight Tremor Visible Yawning Observation: 2= >3x During Session Anxiety or Irritability: 2=Irritable/Anxious Goose Flesh Skin: 0=Smooth Skin COWS Score: 18 CIWA Score - Admission Criteria OASAS Guidelines: Admission for Medically Managed Detox: Requires at least one of the followin. CIWA greater than 12 2. Seizures within the past 24 hours 3. Delirium tremens within the past 24 hours 4. Hallucinations within the past 24 hours 5. Acute intervention needed for co occurring medical disorder 6. Acute intervention needed for co occurring psychiatric disorder 7. Severe withdrawal that cannot be handled at a lower level of care (continued vomiting, continued diarrhea, abnormal vital signs) requiring intravenous medication and/or fluids 8. Admission ROS [facility] Chief Complaint: i need help to stop using heroin and cocaine,medically clear from [facility] to return to [facility] Allergies/Adverse Reactions: Allergies Allergy/AdvReac Type Severity Reaction Status Date / Time No Known Allergies Allergy Verified 07/15/18 09:37 History of Present Illness: this 53years old male with heroin and cocaine dependence,history of injury to left face 0n 08/02/[address] ar [facility] ,uncontrolled dm, seen at [facility] er ,clear to return for detox iddm last rehabsjrh 04/26/18 to 05/07/18 weight loss injury to left face nicotine dependence longest period of sobriety 6 years Exam Limitations: No Limitations - Ebola screening Have you traveled outside of the country in the last 21 days: No Have you had contact with anyone from an Ebola affected area: No Have you been sick,other than usual withdrawal symptoms: No Do you have a fever: No - Review of Systems Constitutional: Chills, Loss of Appetite, Malaise, Night Sweats, Changes in sleep, Weakness, Unintentional Wgt. Loss EENT: reports: No Symptoms Reported, Other (swelling left facial area with tenderness vision ok,,movement of eyball nolimitation,no diplopia) Respiratory: reports: No Symptoms reported Cardiac: reports: No Symptoms Reported GI: reports: Diarrhea, Nausea, Vomiting, Abdominal cramping : reports: No Symptoms Reported Musculoskeletal: reports: Back Pain, Muscle Pain Integumentary: reports: Dryness Neuro: reports: Headache, Tremors Endocrine: reports: Change in Weight Hematology: reports: No Symptoms Reported Psychiatric: reports: Judgement Intact, Mood/Affect Appropiate, Orientated x3 Other Systems: Reviewed and Negative Patient History - Patient Medical History Hx Anemia: No Hx Asthma: No Hx Chronic Obstructive Pulmonary Disease (COPD): No Hx Cancer: No Hx Cardiac Disorders: No Hx Congestive Heart Failure: No Hx Hypertension: No Hx Hypercholesterolemia: No Hx Pacemaker: No HX Cerebrovascular Accident: No Hx Seizures: No Hx Dementia: No Hx Diabetes: Yes (IDDM) Hx Gastrointestinal Disorders: No Hx Liver Disease: No Hx Genitourinary Disorders: No Hx Sexually Transmitted Disorders: No Hx Renal Disease (ESRD): No Hx Thyroid Disease: No Hx Human Immunodeficiency Virus (HIV): No (last 04/21/18 negative) Hx Hepatitis C: No Hx Depression: Yes Hx Suicide Attempt: No Hx Bipolar Disorder: No Hx Schizophrenia: No Other Medical History: no suicidal,no homicidal - Patient Surgical History Past Surgical History: Yes Hx Neurologic Surgery: No Hx Cataract Extraction: No Hx Cardiac Surgery: No Hx Lung Surgery: No Hx Breast Surgery: No Hx Breast Biopsy: No Hx Abdominal Surgery: No Hx Appendectomy: No Hx Cholecystectomy: No Hx Orthopedic Surgery: Yes (L shoulder dislocation sx 30 yrs ago.) Anesthesia Reaction: No - PPD History Previous Implant?: Yes Documented Results: Negative w/proof Implanted On Prior R Admission?: Yes Date: 04/28/18 Results: 0 mm PPD to be Administered?: No - Smoking Cessation Smoking history: Current every day smoker Have you smoked in the past 12 months: Yes Aproximately how many cigarettes per day: 20 Cigars Per Day: 0 Hx Chewing Tobacco Use: No Initiated information on smoking cessation: Yes 'Breaking Loose' booklet given: 07/15/18 - Substance & Tx. History Hx Alcohol Use: Yes Hx Substance Use: Yes Substance Use Type: Alcohol, Cocaine, Heroin - Substances Abused Heroin Route: Inhalation Frequency: Daily Amount used: 6-8 bags Age of first use: 16 Date of Last Use: 07/14/18 Cocaine Route: Inhalation Frequency: Daily Amount used: $10-15 Age of first use: 16 Date of Last Use: 07/14/18 Alcohol-beer Route: Oral Frequency: 1-2 times per week Amount used: 2 (24 oz.) Age of first use: 12 Date of Last Use: 07/14/18 Family Disease History - Family Disease History Family History: Denies Admission Physical Exam [facility] - Vital Signs Vital Signs: Vital Signs - 24 hr 07/15/18 09:44 Temperature 97.6 F Pulse Rate 90 Respiratory 18 Rate Blood Pressure 123/83 - Physical General Appearance: Yes: Moderate Distress, Tremorous, Irritable, Sweating, Anxious HEENTM: Yes: NAVEEN, Pharynx Normal, Other (contusion left facial area vision ok, no numbnw=ess of face) Respiratory: Yes: Lungs Clear, Normal Breath Sounds, No Respiratory Distress Neck: Yes: Within Normal Limits, Supple, Trachea in good position Breast: Yes: Within Normal Limits Cardiology: Yes: Within Normal Limits, Regular Rhythm, Regular Rate, S1, S2 Abdominal: Yes: Within Normal Limits, Normal Bowel Sounds, Non Tender, Soft Genitourinary: Yes: Within Normal Limits Back: Yes: Muscle Spasm Musculoskeletal: Yes: Back pain, Joint Stiffness, Muscle Pain Extremities: Yes: Within Normal Limits, Normal Range of Motion, Tremors Neurological: Yes: miter cutter II-XII NML intact, Fully Oriented, Alert, Motor Strength 5/5 Integumentary: Yes: Dry Lymphatic: Yes: Within Normal Limits - Diagnostic (1) Opioid dependence with withdrawal Current Visit: Yes Status: Acute (2) Cocaine dependence Current Visit: No Status: Acute Qualifiers: Substance use status: uncomplicated Qualified Code(s): F14.20 - Cocaine dependence, uncomplicated (3) IDDM (insulin dependent diabetes mellitus) Current Visit: Yes Status: Acute (4) Weight loss Current Visit: Yes Status: Acute (5) Contusion of face Current Visit: Yes Status: Acute Cleared for Admission [facility] - Detox or Rehab [facility] Level of Care: Medically Managed Detox Regimen/Protocol: Methadone [facility] Breath Alcohol Content Breath Alcohol Content: 0.024 Urine Drug Screen - Results Drug Screen Negative: No Urine Drug Screen Results: ALBERT-Cocaine, OPI-Opiates Inpatient Rehab Admission - Rehab Decision to Admit Inpatient rehab admission?: No
[2018-07-15] MEDS ORDERED: MAGNESIUM CITRATE 300 ML BOTTLE PO PRN (11:05)
[2018-07-15] MEDS ORDERED: ACETAMINOPHEN 325 MG TABLET (FP) PO PRN (11:05)
[2018-07-15] MEDS ORDERED: MENTHOL/PHENOL 1 EACH UD MM PRN (11:05)
[2018-07-15] MEDS ORDERED: P-EPHED 60MG/TRIPROLIDI 2.5MG TABLET PO PRN (11:05)
[2018-07-15] MEDS ORDERED: guaiFENesin/D-METHORPHAN HB 10 ML UNIT-DOSE CUPS PO PRN (11:05)
[2018-07-15] MEDS ORDERED: MAGNESIUM HYDROX 2400MG/30ML ORAL SUSPENSION 30 ML CUP PO PRN (11:05)
[2018-07-15] MEDS ORDERED: IBUPROFEN 400 MG TABLET (FP) PO PRN (11:05)
[2018-07-15] MEDS ORDERED: MAG HYDROX/AL HYDROX/SIMETH 30 ML UNIT-DOSE CUP PO PRN (11:05)
[2018-07-15] MEDS ORDERED: hydrOXYzine PAMOATE 25 MG CAPSULE (FP) PO PRN (11:05)
[2018-07-15] MEDS ORDERED: CYCLOBENZAPRINE HCL 10 MG TABLET (FP) PO PRN (11:12)
[2018-07-15] MEDS ORDERED: METHADONE HCL 10 MG TABLET (FOR DETOX USE ONLY) PO ONE ×2 (11:20→23:00)
[2018-07-15] MEDS: NICOTINE 21 MG/24 HOURS TOPICAL PATCH TD SCH (11:55)
[2018-07-15 14:52] LABS: URINE APPEARANCE CLEAR; URINE BILIRUBIN NEGATIVE (<2.0 mg/dL); URINE COLOR YELLOW; URINE GLUCOSE (UA) 3+ (NEGATIVE); URINE KETONE NEGATIVE (NEGATIVE); URINE LEUK ESTERASE NEGATIVE (NEGATIVE); URINE NITRITE NEGATIVE (NEGATIVE); URINE PROTEIN 2+ (NEGATIVE); URINE UROBILINOGEN 4.0 E.U/dl mg/dL (0.2-1.0)
[2018-07-15 14:56] LABS: EPI CELLS RARE /HPF (FEW); URINE BACTERIA RARE /hpf (NONE SEEN); URINE MUCUS RARE
[2018-07-15] MEDS: INSULIN (NOVOLOG) ASPART 100 UNITS/ML 10ML VIAL SQ SCH ×2 (17:00→21:27)
[2018-07-15] MEDS ORDERED: INSULIN SLIDING SCALE (NOVOLOG) 1 VIAL SQ ONE ×2 (17:03→21:08)
[2018-07-15] MEDS: LOPERAMIDE HCL 2 MG CAPSULE PO PRN (20:04)
[2018-07-15] MEDS ORDERED: INSULIN (LEVEMIR) 100 UNITS/ML UNITS SQ SCH (22:00)
[2018-07-15] MEDS: THIAMINE HCL 100 MG TABLET (FP) PO SCH (22:16)
[2018-07-15] MEDS: cloNIDine HCL 0.1 MG TABLET PO SCH (22:16)
[2018-07-15] MEDS: MELATONIN 5 MG TABLETS PO PRN (22:17)
[2018-07-16] MEDS ORDERED: INSULIN SLIDING SCALE (NOVOLOG) 1 VIAL SQ ONE ×2 (08:01→21:40)
[2018-07-16] MEDS: INSULIN (NOVOLOG) ASPART 100 UNITS/ML 10ML VIAL SQ SCH ×4 (08:01→22:35)
[2018-07-16] MEDS ORDERED: METHADONE HCL 10 MG TABLET (FOR DETOX USE ONLY) PO ONE (10:00)
[2018-07-16] MEDS: cloNIDine HCL 0.1 MG TABLET PO SCH ×2 (10:45→22:34)
[2018-07-16] MEDS: PRENATAL VITAMINS W/ FOLIC ACID TABLET (FP) PO SCH (10:45)
[2018-07-16] MEDS: diazePAM 5 MG TABLET PO PRN ×2 (10:45→22:35)
[2018-07-16] MEDS: ASPIRIN 81 MG CHEWABLE TABLETS PO SCH (10:45)
[2018-07-16] MEDS: NICOTINE 21 MG/24 HOURS TOPICAL PATCH TD SCH (10:47)
--- NOTE | 2018-07-16 15:49 | PN ---
BHS COWS - Scale Resting Pulse: 1= [place] 81-100 Sweatin= Chills/Flushing Restless Observation: 1= Difficult to Sit Still Pupil Size: 0= Normal to Room Light Bone or Joint Aches: 0= None Runny Nose/ Eye Tearin= None GI Upset > 30mins: 2= Nausea/Diarrhea Tremor Observation of Outstretched Hands: 2= Slight Tremor Visible Yawning Observation: 1= 1-2x During Session Anxiety or Irritability: 2=Irritable/Anxious Goose Flesh Skin: 3=Piloerection COWS Score: 13 BHS Progress Note (SOAP) Subjective: Nausea, Diarrhea, Tremors, Sweating. Objective: PATIENT A & O X 3, OBSERVED AMBULATING ON UNIT. IN NO ACUTE DISTRESS. 07/16/18 15:46 Vital Signs Temperature 99.5 F 07/16/18 13:11 Pulse Rate 92 H 07/16/18 13:11 Respiratory Rate 16 07/16/18 13:11 Blood Pressure 106/74 07/16/18 13:11 O2 Sat by Pulse Oximetry (%) Laboratory Tests 07/15/18 07/15/18 07/15/18 10:04 13:07 16:48 Sickle Cell Screen POC Glucometer 434 559 Urine Color Yellow Urine Appearance Clear Urine pH 6.0 Ur Specific [place] 1.031 Urine Protein 2+ H Urine Glucose (UA) 3+ H Urine Ketones Negative Urine Blood Negative Urine Nitrite Negative Urine Bilirubin Negative Urine Urobilinogen 4.0 e.u/dl Ur Leukocyte Esterase Negative Urine WBC (Auto) 1 Urine RBC (Auto) <1 Ur Epithelial Cells Rare Urine Bacteria Rare Urine Mucus Rare 07/15/18 07/16/18 07/16/18 20:52 06:00 06:37 Sickle Cell Screen Negative POC Glucometer > 600 423 Urine Color Urine Appearance Urine pH Ur Specific [place] Urine Protein Urine Glucose (UA) Urine Ketones Urine Blood Urine Nitrite Urine Bilirubin Urine Urobilinogen Ur Leukocyte Esterase Urine WBC (Auto) Urine RBC (Auto) Ur Epithelial Cells Urine Bacteria Urine Mucus 07/16/18 11:29 Sickle Cell Screen POC Glucometer 567 Urine Color Urine Appearance Urine pH Ur Specific [place] Urine Protein Urine Glucose (UA) Urine Ketones Urine Blood Urine Nitrite Urine Bilirubin Urine Urobilinogen Ur Leukocyte Esterase Urine WBC (Auto) Urine RBC (Auto) Ur Epithelial Cells Urine Bacteria Urine Mucus LABS NOTED. RPR RESULT PENDING. 07/16/18 15:48 Assessment: 07/16/18 15:48 WITHDRAWAL SYMPTOMS. HYPERGLYCEMIA. Plan: CONTINUE DETOX. INCREASE DAILY PO FLUID INTAKE. PATIENT UNCERTAIN ABOUT TYPE OF DM THAT HE HAS. PATIENT DENIES KNOWN HISTORY OF ORAL MEDICATION TREATMENT FOR DM. INCREASE LEVIMIR TO 30 UNITS SQ HS.
[2018-07-16] MEDS: INSULIN (LEVEMIR) 100 UNITS/ML UNITS SQ SCH (22:34)
[2018-07-16] MEDS: THIAMINE HCL 100 MG TABLET (FP) PO SCH (22:34)
[2018-07-16] MEDS: MELATONIN 5 MG TABLETS PO PRN (22:37)
[2018-07-17] MEDS: LOPERAMIDE HCL 2 MG CAPSULE PO PRN (07:12)
[2018-07-17] MEDS ORDERED: INSULIN SLIDING SCALE (NOVOLOG) 1 VIAL SQ ONE ×3 (08:08→21:05)
[2018-07-17] MEDS: INSULIN (NOVOLOG) ASPART 100 UNITS/ML 10ML VIAL SQ SCH ×4 (08:13→22:17)
[2018-07-17] MEDS ORDERED: METHADONE HCL 5 MG TABLET (FOR DETOX USE ONLY) PO ONE (10:00)
[2018-07-17] MEDS: NICOTINE 21 MG/24 HOURS TOPICAL PATCH TD SCH (10:23)
[2018-07-17] MEDS: ASPIRIN 81 MG CHEWABLE TABLETS PO SCH (10:23)
[2018-07-17] MEDS: cloNIDine HCL 0.1 MG TABLET PO SCH ×2 (10:24→22:16)
[2018-07-17] MEDS: PRENATAL VITAMINS W/ FOLIC ACID TABLET (FP) PO SCH (10:24)
[2018-07-17] MEDS: NICOTINE POLACRILEX 2 MG GUM BUC PRN (10:25)
--- NOTE | 2018-07-17 14:35 | PN ---
BHS COWS - Scale Resting Pulse: 1= [place] 81-100 Sweatin= Chills/Flushing Restless Observation: 0= Sits Still Pupil Size: 0= Normal to Room Light Bone or Joint Aches: 1= Mild Discomfort Runny Nose/ Eye Tearin= Nasal Congestion GI Upset > 30mins: 0= None Tremor Observation of Outstretched Hands: 0= None Yawning Observation: 1= 1-2x During Session Anxiety or Irritability: 2=Irritable/Anxious Goose Flesh Skin: 3=Piloerection COWS Score: 10 BHS Progress Note (SOAP) Subjective: Body Aches, Diarrhea. Objective: PATIENT A & O X 3. IN NO ACUTE DISTRESS. 07/17/18 14:31 Laboratory Tests 07/15/18 07/15/18 07/15/18 10:04 13:07 16:48 Sickle Cell Screen POC Glucometer 434 559 Urine Color Yellow Urine Appearance Clear Urine pH 6.0 Ur Specific [place] 1.031 Urine Protein 2+ H Urine Glucose (UA) 3+ H Urine Ketones Negative Urine Blood Negative Urine Nitrite Negative Urine Bilirubin Negative Urine Urobilinogen 4.0 e.u/dl Ur Leukocyte Esterase Negative Urine WBC (Auto) 1 Urine RBC (Auto) <1 Ur Epithelial Cells Rare Urine Bacteria Rare Urine Mucus Rare RPR Titer 07/15/18 07/16/18 07/16/18 20:52 06:00 06:37 Sickle Cell Screen Negative POC Glucometer > 600 423 Urine Color Urine Appearance Urine pH Ur Specific [place] Urine Protein Urine Glucose (UA) Urine Ketones Urine Blood Urine Nitrite Urine Bilirubin Urine Urobilinogen Ur Leukocyte Esterase Urine WBC (Auto) Urine RBC (Auto) Ur Epithelial Cells Urine Bacteria Urine Mucus RPR Titer 07/16/18 07/16/18 07/16/18 11:29 15:09 16:27 Sickle Cell Screen POC Glucometer 567 360 Urine Color Urine Appearance Urine pH Ur Specific [place] Urine Protein Urine Glucose (UA) Urine Ketones Urine Blood Urine Nitrite Urine Bilirubin Urine Urobilinogen Ur Leukocyte Esterase Urine WBC (Auto) Urine RBC (Auto) Ur Epithelial Cells Urine Bacteria Urine Mucus RPR Titer Nonreactive 07/16/18 07/17/18 07/17/18 21:27 07:00 11:35 Sickle Cell Screen POC Glucometer 449 172 500 Urine Color Urine Appearance Urine pH Ur Specific [place] Urine Protein Urine Glucose (UA) Urine Ketones Urine Blood Urine Nitrite Urine Bilirubin Urine Urobilinogen Ur Leukocyte Esterase Urine WBC (Auto) Urine RBC (Auto) Ur Epithelial Cells Urine Bacteria Urine Mucus RPR Titer LABS NOTED. Assessment: 07/17/18 14:32 WITHDRAWAL SYMPTOMS. Plan: CONTINUE DETOX. CONTINUE TO MONITOR BGM. PATIENT ADVISED TO INCREASE DAILY INTAKE OF WATER MUCH POSSIBLE. PATIENT REPORTS THAT HE DOES NOT CURRENTLY HAVE ETL DATA ARCHITECT. PATIENT ADVISED TO OBTAIN A ETL DATA ARCHITECT FORM [facility] [place], NEAR WHERE HE LIVES) SOON POSSIBLE AFTER DISCHARGE FROM DETOX UNIT TO GO TO FOR GENERAL MEDICAL ASSESSMENT AND FOR HISTORY OF DM. PATIENT VERBALIZED UNDERSTANDING OF RECOMMENDATIONS.
[2018-07-17] MEDS: MELATONIN 5 MG TABLETS PO PRN (22:16)
[2018-07-17] MEDS: THIAMINE HCL 100 MG TABLET (FP) PO SCH (22:16)
[2018-07-17] MEDS: INSULIN (LEVEMIR) 100 UNITS/ML UNITS SQ SCH (22:16)
[2018-07-18] MEDS ORDERED: METHADONE HCL 5 MG TABLET (FOR DETOX USE ONLY) PO ONE (10:00)
[2018-07-18] MEDS: ASPIRIN 81 MG CHEWABLE TABLETS PO SCH (10:01)
[2018-07-18] MEDS: cloNIDine HCL 0.1 MG TABLET PO SCH (10:01)
[2018-07-18] MEDS: PRENATAL VITAMINS W/ FOLIC ACID TABLET (FP) PO SCH (10:03)
[2018-07-18] MEDS: NICOTINE 21 MG/24 HOURS TOPICAL PATCH TD SCH (10:04)
--- NOTE | 2018-07-18 15:01 | PN ---
BHS COWS - Scale Resting Pulse: 1= [place] 81-100 Sweatin= Chills/Flushing Restless Observation: 1= Difficult to Sit Still Pupil Size: 1= Pupils >than Normal Bone or Joint Aches: 1= Mild Discomfort Runny Nose/ Eye Tearin= Nasal Congestion GI Upset > 30mins: 0= None Tremor Observation of Outstretched Hands: 1= Tremor [place], Not Seen Yawning Observation: 0= None Anxiety or Irritability: 1=Feels Anxious/Irritable Goose Flesh Skin: 0=Smooth Skin COWS Score: 8 BHS Progress Note (SOAP) Subjective: body aches tremor stuffy nose sweating restlessness muscle cramping Objective: 07/18/18 15:07 Vital Signs Temperature 98.4 F 07/18/18 13:34 Pulse Rate 91 H 07/18/18 13:34 Respiratory Rate 18 07/18/18 13:34 Blood Pressure 110/74 07/18/18 13:34 O2 Sat by Pulse Oximetry (%) Laboratory Last Values Sickle Cell Screen Negative (NEGATIVE) 07/16/18 06:00 POC Glucometer 82 UNITS (80-120) 07/18/18 06:21 Urine Color Yellow 07/15/18 13:07 Urine Appearance Clear 07/15/18 13:07 Urine pH 6.0 (5.0-8.0) 07/15/18 13:07 Ur Specific [place] 1.031 (1.010-1.035) 07/15/18 13:07 Urine Protein 2+ (NEGATIVE) H 07/15/18 13:07 Urine Glucose (UA) 3+ (NEGATIVE) H 07/15/18 13:07 Urine Ketones Negative (NEGATIVE) 07/15/18 13:07 Urine Blood Negative (NEGATIVE) 07/15/18 13:07 Urine Nitrite Negative (NEGATIVE) 07/15/18 13:07 Urine Bilirubin Negative (<2.0 mg/dL) 07/15/18 13:07 Urine Urobilinogen 4.0 e.u/dl mg/dL (0.2-1.0) 07/15/18 13:07 Ur Leukocyte Esterase Negative (NEGATIVE) 07/15/18 13:07 Urine WBC (Auto) 1 /hpf (3-5) 07/15/18 13:07 Urine RBC (Auto) <1 /hpf (0-3) 07/15/18 13:07 Ur Epithelial Cells Rare /HPF (FEW) 07/15/18 13:07 Urine Bacteria Rare /hpf (NONE SEEN) 07/15/18 13:07 Urine Mucus Rare 07/15/18 13:07 RPR Titer Nonreactive (NONREACTIVE) 07/16/18 15:09 see ER lab low bgm before breakfast modify insulin sliding scale avoid low bgm in cat and dog bather 07/18/18 15:09 Assessment: 07/18/18 15:10 withdrawal sx 07/18/18 15:10 diabetes II Plan: continue detox
[2018-07-18] MEDS: INSULIN (NOVOLOG) ASPART 100 UNITS/ML 10ML VIAL SQ SCH (16:41)
[2018-07-18] MEDS: INSULIN SLIDING SCALE (NOVOLOG) 1 VIAL SQ SCH ×2 (17:51→21:52)
[2018-07-18] MEDS: THIAMINE HCL 100 MG TABLET (FP) PO SCH (21:49)
[2018-07-18] MEDS: INSULIN (LEVEMIR) 100 UNITS/ML UNITS SQ SCH (21:49)
[2018-07-18] MEDS: MELATONIN 5 MG TABLETS PO PRN (21:50)
[2018-07-19] MEDS: INSULIN SLIDING SCALE (NOVOLOG) 1 VIAL SQ SCH ×2 (07:42→11:15)
[2018-07-19 09:28] VITALS: BP 115/76; PULSE 97; TEMP 97.6
[2018-07-19] MEDS ORDERED: LISINOPRIL 10 MG TABLET (FP) PO SCH (10:00)
[2018-07-19] MEDS ORDERED: METHADONE HCL 10 MG TABLET (FOR DETOX USE ONLY) PO ONE (10:00)
--- NOTE | 2018-07-19 10:08 | PN ---
BHS COWS - Scale Resting Pulse: 1= [place] 81-100 Sweatin= Chills/Flushing Restless Observation: 0= Sits Still Pupil Size: 0= Normal to Room Light Bone or Joint Aches: 1= Mild Discomfort Runny Nose/ Eye Tearin= None GI Upset > 30mins: 1= Stomach Cramp Tremor Observation of Outstretched Hands: 1= Tremor [place], Not Seen Yawning Observation: 0= None Anxiety or Irritability: 1=Feels Anxious/Irritable Goose Flesh Skin: 0=Smooth Skin COWS Score: 6 BHS Progress Note (SOAP) Subjective: feeling better mild body aches less tremor no sweating Objective: 07/19/18 10:08 Vital Signs Temperature 97.6 F 07/19/18 09:28 Pulse Rate 97 H 07/19/18 09:28 Respiratory Rate 20 07/19/18 09:28 Blood Pressure 115/76 07/19/18 09:28 O2 Sat by Pulse Oximetry (%) Laboratory Last Values Sickle Cell Screen Negative (NEGATIVE) 07/16/18 06:00 POC Glucometer 223 UNITS (80-120) 07/19/18 05:45 Urine Color Yellow 07/15/18 13:07 Urine Appearance Clear 07/15/18 13:07 Urine pH 6.0 (5.0-8.0) 07/15/18 13:07 Ur Specific [place] 1.031 (1.010-1.035) 07/15/18 13:07 Urine Protein 2+ (NEGATIVE) H 07/15/18 13:07 Urine Glucose (UA) 3+ (NEGATIVE) H 07/15/18 13:07 Urine Ketones Negative (NEGATIVE) 07/15/18 13:07 Urine Blood Negative (NEGATIVE) 07/15/18 13:07 Urine Nitrite Negative (NEGATIVE) 07/15/18 13:07 Urine Bilirubin Negative (<2.0 mg/dL) 07/15/18 13:07 Urine Urobilinogen 4.0 e.u/dl mg/dL (0.2-1.0) 07/15/18 13:07 Ur Leukocyte Esterase Negative (NEGATIVE) 07/15/18 13:07 Urine WBC (Auto) 1 /hpf (3-5) 07/15/18 13:07 Urine RBC (Auto) <1 /hpf (0-3) 07/15/18 13:07 Ur Epithelial Cells Rare /HPF (FEW) 07/15/18 13:07 Urine Bacteria Rare /hpf (NONE SEEN) 07/15/18 13:07 Urine Mucus Rare 07/15/18 13:07 RPR Titer Nonreactive (NONREACTIVE) 07/16/18 15:09 07/19/18 10:08 lab see ER lab report Assessment: 07/19/18 10:09 mild withdrawal sx Plan: continue detox
[2018-07-19] MEDS: PRENATAL VITAMINS W/ FOLIC ACID TABLET (FP) PO SCH (10:12)
[2018-07-19] MEDS: ASPIRIN 81 MG CHEWABLE TABLETS PO SCH (10:12)
[2018-07-19] MEDS: NICOTINE POLACRILEX 2 MG GUM BUC PRN (10:13)
[2018-07-19] MEDS: NICOTINE 21 MG/24 HOURS TOPICAL PATCH TD SCH (10:14)
--- NOTE | 2018-07-19 11:35 | DS ---
[facility] Detox Discharge Summary Admission Date: 07/15/18 Discharge Date: 07/19/18 - History Present History: Opioid Dependence Additional Comments: 53 years old male admitted on 07/15/18 for opiate withdrawal stabilization feeling better today alert denies suicidal ideation preferred begin chemical rehab at [facility] today Pertinent Past History: encourage bring in medication list and lab report to aftercare appointment update medication list when medication changes keep medication list in wallet - Physical Exam Results Vital Signs: Vital Signs Temperature 97.6 F 07/19/18 09:28 Pulse Rate 97 H 07/19/18 09:28 Respiratory Rate 20 07/19/18 09:28 Blood Pressure 115/76 07/19/18 09:28 O2 Sat by Pulse Oximetry (%) Pertinent Admission Physical Exam Findings: opiate withdrawal sx Laboratory Last Values Sickle Cell Screen Negative (NEGATIVE) 07/16/18 06:00 POC Glucometer 223 UNITS (80-120) 07/19/18 05:45 Urine Color Yellow 07/15/18 13:07 Urine Appearance Clear 07/15/18 13:07 Urine pH 6.0 (5.0-8.0) 07/15/18 13:07 Ur Specific [place] 1.031 (1.010-1.035) 07/15/18 13:07 Urine Protein 2+ (NEGATIVE) H 07/15/18 13:07 Urine Glucose (UA) 3+ (NEGATIVE) H 07/15/18 13:07 Urine Ketones Negative (NEGATIVE) 07/15/18 13:07 Urine Blood Negative (NEGATIVE) 07/15/18 13:07 Urine Nitrite Negative (NEGATIVE) 07/15/18 13:07 Urine Bilirubin Negative (<2.0 mg/dL) 07/15/18 13:07 Urine Urobilinogen 4.0 e.u/dl mg/dL (0.2-1.0) 07/15/18 13:07 Ur Leukocyte Esterase Negative (NEGATIVE) 07/15/18 13:07 Urine WBC (Auto) 1 /hpf (3-5) 07/15/18 13:07 Urine RBC (Auto) <1 /hpf (0-3) 07/15/18 13:07 Ur Epithelial Cells Rare /HPF (FEW) 07/15/18 13:07 Urine Bacteria Rare /hpf (NONE SEEN) 07/15/18 13:07 Urine Mucus Rare 07/15/18 13:07 RPR Titer Nonreactive (NONREACTIVE) 07/16/18 15:09 lab noted - Treatment Hospital Course: Detox Protocol Followed, Detoxed Safely, Responded well, Discharged Condition Good, Rehab Referral Accepted Patient has Accepted a Rehab Referral to: [facility] - Medication Discharge Medications: Ambulatory Orders Aspirin [ASA -] 81 mg PO DAILY 04/26/18 Insulin Glargine,Hum.rec.anlog [Lantus Solostar PEN -] 20 units SQ HS 07/14/18 Insulin (LOG) Aspart [NovoLOG -] 0 units SQ TID #1 vial 07/19/18 Insulin (Levemir) [Levemir Vial] 30 units SQ HS #100 units 07/19/18 Lisinopril [Prinivil] 10 mg PO DAILY #14 tablet 07/19/18 Naloxone HCl [Narcan] 4 mg NS ASDIR PRN #1 spray 07/19/18 cloNIDine HCL [Catapres -] 0.1 mg PO BID #30 tablet 07/19/18 - Diagnosis (1) IDDM (insulin dependent diabetes mellitus) Status: Chronic (2) Opioid dependence Status: Acute Qualifiers: Substance use status: uncomplicated Qualified Code(s): F11.20 - Opioid dependence, uncomplicated (3) Substance induced mood disorder Status: Suspected (4) Weight loss Status: Acute (5) HTN (hypertension) Status: Chronic Qualifiers: Hypertension type: essential hypertension Qualified Code(s): I10 - Essential (primary) hypertension (6) Nicotine dependence Status: Acute Qualifiers: Nicotine product type: cigarettes Substance use status: in withdrawal Qualified Code(s): F17.213 - Nicotine dependence, cigarettes, with withdrawal - AMA Did Patient Leave Against Medical Advice: No
[2018-07-20] MEDS ORDERED: METHADONE HCL 5 MG TABLET (FOR DETOX USE ONLY) PO ONE (06:00)
== END 2018-07-19 11:45 | disposition home or self-care (01) | DRG 773 ==
LOC: YASAS 08:11 → Y3N 10:49
PROVIDERS: ADMIT Surgery; ATTEND Surgery
PROC: HZ2ZZZZ Detoxification Services for Substance Abuse Treatment (ICD-10-PCS; principal; 2018-07-15)
DX: F11.23 Opioid dependence with withdrawal (principal); F14.20 Cocaine dependence, uncomplicated; F17.213 Nicotine dependence, cigarettes, with withdrawal; F19.24 Other psychoactive substance dependence with psychoactive substance-induced mood disorder; E11.65 Type 2 diabetes mellitus with hyperglycemia; I10 Essential (primary) hypertension; Z79.4 Long term (current) use of insulin
CPT/HCPCS: 36415; 81003; 81015; 82962; 85660; 86593; J0735

== ENCOUNTER 2019-01-18 11:59 | Inpatient (IN) | payer OTHER ==
[2019-01-18 13:00] VITALS: BMI 16.2
--- NOTE | 2019-01-18 14:15 | HP ---
COWS - Scale Resting Pulse: 1= [place] 81-100 Sweatin=Flushed/Facial Moisture Restless Observation: 3= Extraneous Movement Pupil Size: 1= Pupils >than Normal Bone or Joint Aches: 2= Severe Diffuse Aches Runny Nose/ Eye Tearin= Nasal Congestion GI Upset > 30mins: 1= Stomach Cramp Tremor Observation: 2= Slight Tremor Visible Yawning Observation: 1= 1-2x During Session Anxiety or Irritability: 2=Irritable/Anxious Goose Flesh Skin: 0=Smooth Skin (appropriate for detox) COWS Score: 16 CIWA Score - Admission Criteria OASAS Guidelines: Admission for Medically Managed Detox: Requires at least one of the followin. CIWA greater than 12 2. Seizures within the past 24 hours 3. Delirium tremens within the past 24 hours 4. Hallucinations within the past 24 hours 5. Acute intervention needed for co occurring medical disorder 6. Acute intervention needed for co occurring psychiatric disorder 7. Severe withdrawal that cannot be handled at a lower level of care (continued vomiting, continued diarrhea, abnormal vital signs) requiring intravenous medication and/or fluids 8. Admission ROS [facility] Chief Complaint: "I like to get myself clean and learn about my addiction so I can stay away from using heroin and cocaine." Allergies/Adverse Reactions: Allergies Allergy/AdvReac Type Severity Reaction Status Date / Time No Known Allergies Allergy Verified 01/18/19 12:50 History of Present Illness: Patient is a 54 year old black male with opioid dependence and cocaine use disorder. He was last in detox here in 2018 but does not remember it. PMHx: DM but on no meds, not taking it. Psurg Hx: L shoulder surgery many years ago He is currently using 12-15 bags of heroin per day, intranasally and occasionally intravenously, last used yesterday He is currently using $100 per day, last used yesterday. Patient has no legal issues pending. Patient smokes 1 pack every two days. Patient is domiciled. Patient has poor support systems. - Ebola screening Have you traveled outside of the country in the last 21 days: No Have you had contact with anyone from an Ebola affected area: No Have you been sick,other than usual withdrawal symptoms: No Do you have a fever: No - Review of Systems Constitutional: Chills, Diaphoresis EENT: reports: No Symptoms Reported Respiratory: reports: No Symptoms reported, SOB with Exertion Cardiac: reports: No Symptoms Reported GI: reports: Nausea : reports: No Symptoms Reported Musculoskeletal: reports: Back Pain Integumentary: reports: No Symptoms Reported Neuro: reports: Headache Endocrine: reports: No Symptoms Reported Hematology: reports: No Symptoms Reported Psychiatric: reports: No Sypmtoms Reported, Judgement Intact, Mood/Affect Appropiate Other Systems: Reviewed and Negative Patient History - Patient Medical History Hx Anemia: No Hx Asthma: No Hx Chronic Obstructive Pulmonary Disease (COPD): No Hx Cancer: No Hx Cardiac Disorders: No Hx Congestive Heart Failure: No Hx Hypertension: No Hx Hypercholesterolemia: No Hx Pacemaker: No HX Cerebrovascular Accident: No Hx Seizures: No Hx Dementia: No Hx Diabetes: Yes (hasn't been taking medications) Hx Gastrointestinal Disorders: No Hx Liver Disease: No Hx Genitourinary Disorders: No Hx Sexually Transmitted Disorders: No Hx Renal Disease (ESRD): No Hx Thyroid Disease: No Hx Human Immunodeficiency Virus (HIV): No (last 04/21/18 negative) Hx Hepatitis C: No Hx Depression: Yes Hx Suicide Attempt: No Hx Bipolar Disorder: No Hx Schizophrenia: No - Patient Surgical History Past Surgical History: Yes Hx Neurologic Surgery: No Hx Cataract Extraction: No Hx Cardiac Surgery: No Hx Lung Surgery: No Hx Breast Surgery: No Hx Breast Biopsy: No Hx Abdominal Surgery: No Hx Appendectomy: No Hx Cholecystectomy: No Hx Orthopedic Surgery: Yes (L shoulder dislocation sx 30 yrs ago.) Anesthesia Reaction: No - PPD History Previous Implant?: Yes Documented Results: Negative w/proof Implanted On Prior [facility] Admission?: Yes Date: 04/28/18 Results: 0 mm PPD to be Administered?: No - Smoking Cessation Smoking history: Current every day smoker Have you smoked in the past 12 months: Yes Aproximately how many cigarettes per day: 20 Cigars Per Day: 0 Hx Chewing Tobacco Use: No Initiated information on smoking cessation: Yes 'Breaking Loose' booklet given: 01/18/19 - Substance & Tx. History Hx Alcohol Use: No Hx Substance Use: Yes Substance Use Type: Cocaine, Heroin - Substances abused Heroin Substance route: Inhalation Frequency: Daily Amount used: 15 bags Age of first use: 13 Date of last use: 01/18/19 Cocaine Substance route: Smoking Frequency: Daily Amount used: 5-6 bags Age of first use: 13 Date of last use: 01/18/19 Family Disease History - Family Disease History Family History: Unremarkable Family Disease History: Other: Father ( prostate cancer), Mother ( , unknown cancer), Brother (2 brother, 1 MVA from DUI), Son (2 sons unknown disconnected) Admission Physical Exam [facility] - Vital Signs Vital Signs: Vital Signs - 24 hr 01/18/19 12:49 Temperature 97.1 F L Pulse Rate 82 Respiratory 16 Rate Blood Pressure 98/68 - Physical General Appearance: Yes: Mild Distress, Other (cachectic) HEENTM: Yes: EOMI, Hearing grossly Normal, Normocephalic, Pharynx Normal, Tm's normal Respiratory: Yes: Chest Non-Tender, Lungs Clear, Normal Breath Sounds, No Respiratory Distress, No Accessory Muscle Use Neck: Yes: No masses,lesions,Nodules, Trachea in good position Breast: Yes: Within Normal Limits Cardiology: Yes: Regular Rhythm, Regular Rate, S1, S2 Abdominal: Yes: Normal Bowel Sounds, Non Tender, Flat Genitourinary: Yes: Within Normal Limits Back: Yes: Normal Inspection Musculoskeletal: Yes: full range of Motion, Gait Steady Extremities: Yes: Normal Capillary Refill, Normal Inspection, Non-Tender Neurological: Yes: director of front office II-XII NML intact, Fully Oriented, Alert, Motor Strength 5/5, Normal Mood/Affect, Normal Response Integumentary: Yes: Normal Color, Warm Lymphatic: Yes: Within Normal Limits - Diagnostic (1) Cocaine dependence Current Visit: Yes Status: Acute Qualifiers: Substance use status: uncomplicated Qualified Code(s): F14.20 - Cocaine dependence, uncomplicated (2) Nicotine dependence Current Visit: Yes Status: Acute Qualifiers: Nicotine product type: cigarettes Substance use status: in withdrawal Qualified Code(s): F17.213 - Nicotine dependence, cigarettes, with withdrawal (3) Opioid dependence Current Visit: Yes Status: Acute Qualifiers: Substance use status: uncomplicated Qualified Code(s): F11.20 - Opioid dependence, uncomplicated Cleared for Admission [facility] - Detox or Rehab [facility] Level of Care: Medically Managed Detox Regimen/Protocol: Methadone Claeared for Rehab Admission: No Screened but not Admitted - Documentation of Visit Screened but not Admitted: No Breathalyzer - Breathalyzer Breathalyzer: 0 Vital Signs - Vital Signs Vital signs refused: No Temperature: 97.1 F Temperature source: Oral Pulse Rate: 82 Respiratory Rate: 16 Blood Pressure: 98/68 BP Location: Left Arm Blood Pressure position: Sitting - Height Height: 5 ft 6 in - Weight Weight: 101 lb Weight measurement method: Standing scale - BMI Body Mass Index (BMI): 16.2 - Bowel Function Bowel Movement: No Urine Drug Screen - Test Device Lot number: [id number] Expiration date: 10/05/20 - Control Is test valid?: Yes - Results Drug screen NEGATIVE: No Urine drug screen results: ALBERT-Cocaine, MOP-Opiates Inpatient Rehab Admission - Rehab Decision to Admit Inpatient rehab admission?: No
[2019-01-18] MEDS ORDERED: MAGNESIUM CITRATE 300 ML BOTTLE PO PRN (14:25)
[2019-01-18] MEDS ORDERED: METHADONE HCL 10 MG TABLET (FOR DETOX USE ONLY) PO ONE (14:25)
[2019-01-18] MEDS ORDERED: cloNIDine HCL 0.1 MG TABLET PO PRN (14:25)
[2019-01-18] MEDS ORDERED: hydrOXYzine PAMOATE 25 MG CAPSULE (FP) PO PRN (14:25)
[2019-01-18] MEDS ORDERED: MENTHOL/PHENOL 1 EACH UD MM PRN (14:25)
[2019-01-18] MEDS ORDERED: IBUPROFEN 400 MG TABLET (FP) PO PRN (14:25)
[2019-01-18] MEDS ORDERED: MAGNESIUM HYDROX 2400MG/30ML ORAL SUSPENSION 30 ML CUP PO PRN (14:25)
[2019-01-18] MEDS ORDERED: ACETAMINOPHEN 325 MG TABLET (FP) PO PRN ×2 (14:25)
[2019-01-18] MEDS ORDERED: METHOCARBAMOL 500 MG TABLET PO PRN (14:25)
[2019-01-18] MEDS: NICOTINE 14 MG/24 HOURS TOPICAL PATCH TD SCH (15:21)
[2019-01-18 16:56] LABS: HEMATOCRIT 35.7 % (35.4-49); HEMOGLOBIN 11.9 GM/dL (11.7-16.9); MCH 34.7 pg (25.7-33.7); MCHC 33.2 g/dl (32.0-35.9); MEAN CELL VOLUME 104.7 fl (80-96); MEAN PLT VOLUME 7.6 fl (7.5-11.1); PLATELET COUNT 287 K/MM3 (134-434); RBC 3.41 M/mm3 (4.00-5.60); RDW 14.3 % (11.9-15.9); WHITE BLOOD COUNT 2.9 K/mm3 (4.0-10.0)
[2019-01-18 17:16] LABS: ALBUMIN 3.2 g/dl (3.4-5.0); BILIRUBIN,TOTAL 0.4 mg/dL (0.2-1); BLOOD UREA NITROGEN 21.5 mg/dL (7-18); CALCIUM 9.4 mg/dL (8.5-10.1); CREATININE 1.1 mg/dL (0.55-1.3); POTASSIUM 5.2 mmol/L (3.5-5.1); TOT PROT 8.4 g/dl (6.4-8.2)
[2019-01-18] MEDS ORDERED: INSULIN (NOVOLOG) ASPART 100 UNITS/ML 10ML VIAL SQ ONE ×2 (17:43→18:15)
--- NOTE | 2019-01-18 18:07 | PN ---
BHS Progress Note Note: b/s 646 this afternoon: pt not symptomatic Repeat f/s >500 Insulin 12 units ordered stat Diet changed to No concentrated sugars BGM 4 times a day SS insulin coverage
[2019-01-18] MEDS ORDERED: INSULIN SLIDING SCALE (NOVOLOG) 1 VIAL SQ ONE (18:14)
[2019-01-18] MEDS: INSULIN SLIDING SCALE (NOVOLOG) 1 VIAL SQ SCH (21:45)
[2019-01-18] MEDS: MELATONIN 5 MG TABLETS PO PRN (22:50)
[2019-01-18] MEDS: THIAMINE HCL 100 MG TABLET (FP) PO SCH (22:50)
[2019-01-19] MEDS: INSULIN SLIDING SCALE (NOVOLOG) 1 VIAL SQ SCH ×5 (07:14→22:44)
[2019-01-19] MEDS ORDERED: INSULIN SLIDING SCALE (NOVOLOG) 1 VIAL SQ ONE (07:26)
[2019-01-19] MEDS ORDERED: METHADONE HCL 5 MG TABLET (FOR DETOX USE ONLY) ONE (08:08)
[2019-01-19] MEDS ORDERED: METHADONE HCL 10 MG TABLET (FOR DETOX USE ONLY) ONE (08:08)
[2019-01-19] MEDS ORDERED: METHADONE (DETOX) 20 MG, METHADONE (DETOX) 5 MG PO ONE (10:00)
[2019-01-19] MEDS: PRENATAL VITAMINS W/ FOLIC ACID TABLET (FP) PO SCH (10:40)
[2019-01-19] MEDS: NICOTINE 14 MG/24 HOURS TOPICAL PATCH TD SCH (10:40)
--- NOTE | 2019-01-19 16:42 | PN ---
BHS COWS - Scale Resting Pulse: 1= [place] 81-100 Sweatin= Chills/Flushing Restless Observation: 0= Sits Still Pupil Size: 1= Pupils >than Normal Bone or Joint Aches: 1= Mild Discomfort Runny Nose/ Eye Tearin= Nasal Congestion GI Upset > 30mins: 1= Stomach Cramp Tremor Observation of Outstretched Hands: 2= Slight Tremor Visible Yawning Observation: 2= >3x During Session Anxiety or Irritability: 2=Irritable/Anxious Goose Flesh Skin: 0=Smooth Skin COWS Score: 12 BHS Progress Note (SOAP) Subjective: c/0 abdominal cramp discontinue motrin begin bentyl 10 mg po x 1 follow by prn patient does not remember taking "anything" for diabetes serum glucose elevation treated with insulin coverage begin metformin 500 mg po bid if tolerate well may increase to 1000 mg bid [id number] pending Objective: 01/19/19 16:47 Vital Signs Temperature 96.4 F L 01/19/19 13:51 Pulse Rate 85 01/19/19 13:51 Respiratory Rate 18 01/19/19 13:51 Blood Pressure 107/69 01/19/19 13:51 O2 Sat by Pulse Oximetry (%) Laboratory Last Values WBC 2.9 K/mm3 (4.0-10.0) L 01/18/19 14:20 RBC 3.41 M/mm3 (4.00-5.60) L 01/18/19 14:20 Hgb 11.9 GM/dL (11.7-16.9) 01/18/19 14:20 Hct 35.7 % (35.4-49) 01/18/19 14:20 MCV 104.7 fl (80-96) H 01/18/19 14:20 MCH 34.7 pg (25.7-33.7) H 01/18/19 14:20 MCHC 33.2 g/dl (32.0-35.9) 01/18/19 14:20 RDW 14.3 % (11.9-15.9) 01/18/19 14:20 Plt Count 287 K/MM3 (134-434) D 01/18/19 14:20 MPV 7.6 fl (7.5-11.1) 01/18/19 14:20 Sodium 135 mmol/L (136-145) L 01/18/19 14:20 Potassium 5.2 mmol/L (3.5-5.1) H 01/18/19 14:20 Chloride 100 mmol/L (98-107) 01/18/19 14:20 Carbon Dioxide 30 mmol/L (21-32) 01/18/19 14:20 Anion Gap 5 MMOL/L (8-16) L 01/18/19 14:20 BUN 21.5 mg/dL (7-18) H 01/18/19 14:20 Creatinine 1.1 mg/dL (0.55-1.3) 01/18/19 14:20 Est GFR (CKD-EPI)AfAm 87.13 01/18/19 14:20 Est GFR (CKD-EPI)NonAf 75.17 01/18/19 14:20 POC Glucometer 279 UNITS (80-120) 01/19/19 16:29 Random Glucose 646 mg/dL (74-106) H* 01/18/19 14:20 Calcium 9.4 mg/dL (8.5-10.1) 01/18/19 14:20 Total Bilirubin 0.4 mg/dL (0.2-1) 01/18/19 14:20 AST 14 U/L (15-37) L 01/18/19 14:20 ALT 31 U/L (13-61) 01/18/19 14:20 Alkaline Phosphatase 96 U/L (45-117) 01/18/19 14:20 Total Protein 8.4 g/dl (6.4-8.2) H 01/18/19 14:20 Albumin 3.2 g/dl (3.4-5.0) L 01/18/19 14:20 RPR Titer Nonreactive (NONREACTIVE) 01/18/19 14:20 lab noted alert oriented x 3 resting on bed limited conversation with staff Assessment: 01/19/19 16:50 opiate withdrawal sx 01/19/19 16:51 patient was taking suboxone for opiate misuse unable to remember last dose of suboxone negative suboxone urine tox upon admission Plan: continue methadone detox regimen
[2019-01-19] MEDS ORDERED: DICYCLOMINE HCL 10 MG CAPSULE PO ONE (17:30)
[2019-01-19] MEDS ORDERED: DICYCLOMINE HCL 10 MG CAPSULE PO PRN (22:00)
[2019-01-19] MEDS: THIAMINE HCL 100 MG TABLET (FP) PO SCH (22:44)
[2019-01-19] MEDS: MELATONIN 5 MG TABLETS PO PRN (22:44)
[2019-01-20] MEDS ORDERED: metFORMIN HCL 500 MG TABLET (FP) PO SCH ×2 (07:00→14:18)
[2019-01-20] MEDS: INSULIN SLIDING SCALE (NOVOLOG) 1 VIAL SQ SCH ×4 (07:05→22:12)
[2019-01-20] MEDS ORDERED: INSULIN SLIDING SCALE (NOVOLOG) 1 VIAL SQ ONE (07:17)
[2019-01-20] MEDS ORDERED: METHADONE HCL 10 MG TABLET (FOR DETOX USE ONLY) PO ONE (10:00)
[2019-01-20 10:04] LABS: HEMATOCRIT 32.1 % (35.4-49); HEMOGLOBIN 10.8 GM/dL (11.7-16.9); MCH 34.9 pg (25.7-33.7); MCHC 33.6 g/dl (32.0-35.9); MEAN PLT VOLUME 7.9 fl (7.5-11.1); PLATELET COUNT 235 K/MM3 (134-434); RBC 3.08 M/mm3 (4.00-5.60); RDW 13.7 % (11.9-15.9); WHITE BLOOD COUNT 3.9 K/mm3 (4.0-10.0)
[2019-01-20] MEDS: NICOTINE 14 MG/24 HOURS TOPICAL PATCH TD SCH (10:25)
[2019-01-20] MEDS: PRENATAL VITAMINS W/ FOLIC ACID TABLET (FP) PO SCH (10:25)
--- NOTE | 2019-01-20 14:12 | PN ---
BHS COWS - Scale Resting Pulse: 0= [place] 80 or Below Sweatin= Chills/Flushing Restless Observation: 0= Sits Still Pupil Size: 0= Normal to Room Light Bone or Joint Aches: 1= Mild Discomfort Runny Nose/ Eye Tearin= Nasal Congestion GI Upset > 30mins: 1= Stomach Cramp Tremor Observation of Outstretched Hands: 1= Tremor [place], Not Seen Yawning Observation: 2= >3x During Session Anxiety or Irritability: 1=Feels Anxious/Irritable Goose Flesh Skin: 0=Smooth Skin COWS Score: 8 S Progress Note (SOAP) Subjective: doing well with methadone detox protocol body aches trouble sleep at night resting on bed had breakfast 90$ Objective: 01/20/19 14:14 Vital Signs Temperature 98.0 F 01/20/19 13:53 Pulse Rate 75 01/20/19 13:53 Respiratory Rate 18 01/20/19 13:53 Blood Pressure 117/77 01/20/19 13:53 O2 Sat by Pulse Oximetry (%) Laboratory Last Values WBC 3.9 K/mm3 (4.0-10.0) L 01/20/19 07:00 RBC 3.08 M/mm3 (4.00-5.60) L 01/20/19 07:00 Hgb 10.8 GM/dL (11.7-16.9) L 01/20/19 07:00 Hct 32.1 % (35.4-49) L 01/20/19 07:00 MCV 104.0 fl (80-96) H 01/20/19 07:00 MCH 34.9 pg (25.7-33.7) H 01/20/19 07:00 MCHC 33.6 g/dl (32.0-35.9) 01/20/19 07:00 RDW 13.7 % (11.9-15.9) 01/20/19 07:00 Plt Count 235 K/MM3 (134-434) 01/20/19 07:00 MPV 7.9 fl (7.5-11.1) 01/20/19 07:00 Sodium 135 mmol/L (136-145) L 01/18/19 14:20 Potassium 5.0 mmol/L (3.5-5.1) 01/20/19 07:00 Chloride 100 mmol/L (98-107) 01/18/19 14:20 Carbon Dioxide 30 mmol/L (21-32) 01/18/19 14:20 Anion Gap 5 MMOL/L (8-16) L 01/18/19 14:20 BUN 21.5 mg/dL (7-18) H 01/18/19 14:20 Creatinine 1.1 mg/dL (0.55-1.3) 01/18/19 14:20 Est GFR (CKD-EPI)AfAm 87.13 01/18/19 14:20 Est GFR (CKD-EPI)NonAf 75.17 01/18/19 14:20 POC Glucometer 191 UNITS (80-120) 01/20/19 11:22 Random Glucose 646 mg/dL (74-106) H* 01/18/19 14:20 Hemoglobin A1c % 14.3 % (4.2-6.3) H 01/20/19 07:00 Calcium 9.4 mg/dL (8.5-10.1) 01/18/19 14:20 Total Bilirubin 0.4 mg/dL (0.2-1) 01/18/19 14:20 AST 14 U/L (15-37) L 01/18/19 14:20 ALT 31 U/L (13-61) 01/18/19 14:20 Alkaline Phosphatase 96 U/L (45-117) 01/18/19 14:20 Total Protein 8.4 g/dl (6.4-8.2) H 01/18/19 14:20 Albumin 3.2 g/dl (3.4-5.0) L 01/18/19 14:20 RPR Titer Nonreactive (NONREACTIVE) 01/18/19 14:20 long history of diabetes non compliance with medication no dietary regimen lab noted a1c 14 increase metformin to 1000mg po bid 01/20/19 14:16 Assessment: 01/20/19 14:19 opiate withdrawa sx alert oriented x 3 bgm gradually lowered due to insulin coverage long history of diabetes a1c 14 Plan: continue methadone detox regimen metformin 1000mg po bid
[2019-01-20] MEDS: metFORMIN HCL 500 MG TABLET (FP) PO SCH (17:17)
[2019-01-20] MEDS: MELATONIN 5 MG TABLETS PO PRN (22:13)
[2019-01-20] MEDS: THIAMINE HCL 100 MG TABLET (FP) PO SCH (22:13)
[2019-01-21] MEDS: metFORMIN HCL 500 MG TABLET (FP) PO SCH ×2 (07:22→17:22)
[2019-01-21] MEDS: INSULIN SLIDING SCALE (NOVOLOG) 1 VIAL SQ SCH ×4 (07:39→22:05)
[2019-01-21] MEDS ORDERED: METHADONE HCL 10 MG TABLET (FOR DETOX USE ONLY) ONE (08:14)
[2019-01-21] MEDS ORDERED: METHADONE HCL 5 MG TABLET (FOR DETOX USE ONLY) ONE (08:16)
[2019-01-21] MEDS ORDERED: METHADONE (DETOX) 10 MG, METHADONE (DETOX) 5 MG PO ONE (10:00)
[2019-01-21] MEDS: NICOTINE 14 MG/24 HOURS TOPICAL PATCH TD SCH (10:31)
[2019-01-21] MEDS: PRENATAL VITAMINS W/ FOLIC ACID TABLET (FP) PO SCH (10:31)
--- NOTE | 2019-01-21 17:01 | PN ---
BHS COWS - Scale Resting Pulse: 0= [place] 80 or Below Sweatin= No chills or Flushing Restless Observation: 0= Sits Still Pupil Size: 0= Normal to Room Light Bone or Joint Aches: 2= Severe Diffuse Aches Runny Nose/ Eye Tearin= Nasal Congestion GI Upset > 30mins: 1= Stomach Cramp Tremor Observation of Outstretched Hands: 0= None Yawning Observation: 1= 1-2x During Session Anxiety or Irritability: 2=Irritable/Anxious Goose Flesh Skin: 0=Smooth Skin COWS Score: 7 BHS Progress Note (SOAP) Subjective: Stomach Cramping, Interrupted Sleep, Body Aches, Fatigue. Objective: PATIENT A & O X 3, OBSERVED AMBULATING ON UNIT UNASSISTED. IN NO ACUTE DISTRESS. 01/21/19 16:57 Vital Signs Temperature 96 F L 01/21/19 13:23 Pulse Rate 71 01/21/19 13:23 Respiratory Rate 18 01/21/19 13:23 Blood Pressure 119/75 01/21/19 13:23 O2 Sat by Pulse Oximetry (%) Laboratory Tests 01/18/19 01/18/19 01/18/19 10:10 14:20 14:20 WBC 2.9 L RBC 3.41 L Hgb 11.9 Hct 35.7 MCV 104.7 H MCH 34.7 H MCHC 33.2 RDW 14.3 Plt Count 287 D MPV 7.6 Sodium 135 L Potassium 5.2 H Chloride 100 Carbon Dioxide 30 Anion Gap 5 L BUN 21.5 H Creatinine 1.1 Est GFR (CKD-EPI)AfAm 87.13 Est GFR (CKD-EPI)NonAf 75.17 POC Glucometer Random Glucose 646 H* Hemoglobin A1c % Calcium 9.4 Total Bilirubin 0.4 AST 14 L ALT 31 Alkaline Phosphatase 96 Total Protein 8.4 H Albumin 3.2 L RPR Titer HIV 1&2 Antibody Screen Cancelled HIV P24 Antigen Cancelled 01/18/19 01/18/19 01/18/19 14:20 17:50 20:13 WBC RBC Hgb Hct MCV MCH MCHC RDW Plt Count MPV Sodium Potassium Chloride Carbon Dioxide Anion Gap BUN Creatinine Est GFR (CKD-EPI)AfAm Est GFR (CKD-EPI)NonAf POC Glucometer 541 172 Random Glucose Hemoglobin A1c % Calcium Total Bilirubin AST ALT Alkaline Phosphatase Total Protein Albumin RPR Titer Nonreactive HIV 1&2 Antibody Screen HIV P24 Antigen 01/19/19 01/19/19 01/19/19 06:31 11:46 16:29 WBC RBC Hgb Hct MCV MCH MCHC RDW Plt Count MPV Sodium Potassium Chloride Carbon Dioxide Anion Gap BUN Creatinine Est GFR (CKD-EPI)AfAm Est GFR (CKD-EPI)NonAf POC Glucometer [phone] Random Glucose Hemoglobin A1c % Calcium Total Bilirubin AST ALT Alkaline Phosphatase Total Protein Albumin RPR Titer HIV 1&2 Antibody Screen HIV P24 Antigen 01/19/19 01/20/19 01/20/19 20:43 05:07 07:00 WBC RBC Hgb Hct MCV MCH MCHC RDW Plt Count MPV Sodium Potassium Chloride Carbon Dioxide Anion Gap BUN Creatinine Est GFR (CKD-EPI)AfAm Est GFR (CKD-EPI)NonAf POC Glucometer 171 359 Random Glucose Hemoglobin A1c % 14.3 H Calcium Total Bilirubin AST ALT Alkaline Phosphatase Total Protein Albumin RPR Titer HIV 1&2 Antibody Screen HIV P24 Antigen 01/20/19 01/20/19 01/20/19 07:00 07:00 11:22 WBC 3.9 L RBC 3.08 L Hgb 10.8 L Hct 32.1 L MCV 104.0 H MCH 34.9 H MCHC 33.6 RDW 13.7 Plt Count 235 MPV 7.9 Sodium Potassium 5.0 Chloride Carbon Dioxide Anion Gap BUN Creatinine Est GFR (CKD-EPI)AfAm Est GFR (CKD-EPI)NonAf POC Glucometer 191 Random Glucose Hemoglobin A1c % Calcium Total Bilirubin AST ALT Alkaline Phosphatase Total Protein Albumin RPR Titer HIV 1&2 Antibody Screen HIV P24 Antigen 01/20/19 01/20/19 01/21/19 16:21 20:52 05:48 WBC RBC Hgb Hct MCV MCH MCHC RDW Plt Count MPV Sodium Potassium Chloride Carbon Dioxide Anion Gap BUN Creatinine Est GFR (CKD-EPI)AfAm Est GFR (CKD-EPI)NonAf POC Glucometer 193 351 363 Random Glucose Hemoglobin A1c % Calcium Total Bilirubin AST ALT Alkaline Phosphatase Total Protein Albumin RPR Titer HIV 1&2 Antibody Screen HIV P24 Antigen 01/21/19 01/21/19 11:21 16:45 WBC RBC Hgb Hct MCV MCH MCHC RDW Plt Count MPV Sodium Potassium Chloride Carbon Dioxide Anion Gap BUN Creatinine Est GFR (CKD-EPI)AfAm Est GFR (CKD-EPI)NonAf POC Glucometer 239 253 Random Glucose Hemoglobin A1c % Calcium Total Bilirubin AST ALT Alkaline Phosphatase Total Protein Albumin RPR Titer HIV 1&2 Antibody Screen HIV P24 Antigen LABS NOTED. PATIENT IS MILDLY ANEMIC. WBC NOTED TO BE SIGNIFICANTLY IMPROVED ON REPEAT CBC LABORATORY ASSESSMENT (3.9 ) ON 01/20/2019 IN COMPARISON TO WBC NOTED ON DETOX ADMISSION LABORATORY ASSESSMENT. DETOX ADMISSION HIV AB RESULT PENDING. 01/21/19 16:59 Assessment: 01/21/19 16:59 WITHDRAWAL SYMPTOMS. ANEMIA. HYPERGLYCEMIA. 01/21/19 17:01 Plan: CONTINUE DETOX. INCREASE DAILY PO WATER INTAKE. PATIENT IS CURRENTLY RECEIVING DAILY MVI CONTAINING B VITAMINS AND IRON WHILE ADMITTED FOR DETOX.
[2019-01-21] MEDS: BISMUTH SUBSALICYLATE 524 MG/30 ML UD PO PRN (20:02)
[2019-01-21] MEDS: THIAMINE HCL 100 MG TABLET (FP) PO SCH (22:04)
[2019-01-21] MEDS: MELATONIN 5 MG TABLETS PO PRN (22:04)
[2019-01-22] MEDS: metFORMIN HCL 500 MG TABLET (FP) PO SCH ×2 (06:54→16:45)
[2019-01-22] MEDS: INSULIN SLIDING SCALE (NOVOLOG) 1 VIAL SQ SCH ×4 (07:06→22:52)
[2019-01-22] MEDS: BISMUTH SUBSALICYLATE 524 MG/30 ML UD PO PRN (07:07)
[2019-01-22] MEDS ORDERED: INSULIN SLIDING SCALE (NOVOLOG) 1 VIAL SQ ONE (07:13)
[2019-01-22] MEDS ORDERED: METHADONE HCL 10 MG TABLET (FOR DETOX USE ONLY) PO ONE (10:00)
[2019-01-22] MEDS: NICOTINE 14 MG/24 HOURS TOPICAL PATCH TD SCH (10:17)
[2019-01-22] MEDS: PRENATAL VITAMINS W/ FOLIC ACID TABLET (FP) PO SCH (10:17)
--- NOTE | 2019-01-22 16:15 | PN ---
BHS COWS - Scale Resting Pulse: 1= [place] 81-100 Sweatin= No chills or Flushing Restless Observation: 0= Sits Still Pupil Size: 0= Normal to Room Light Bone or Joint Aches: 1= Mild Discomfort Runny Nose/ Eye Tearin= None GI Upset > 30mins: 1= Stomach Cramp Tremor Observation of Outstretched Hands: 0= None Yawning Observation: 1= 1-2x During Session Anxiety or Irritability: 2=Irritable/Anxious Goose Flesh Skin: 0=Smooth Skin COWS Score: 6 BHS Progress Note (SOAP) Subjective: Stomach Cramping (Mild, Improving). Patient Denies any other Current Withdrawal / Detox symptoms and notes that he feel relatively well overall. Objective: PATIENT A & O X 3. IN NO ACUTE DISTRESS. 01/22/19 16:14 Vital Signs Temperature 97.4 F L 01/22/19 09:43 Pulse Rate 92 H 01/22/19 09:43 Respiratory Rate 18 01/22/19 09:43 Blood Pressure 135/93 01/22/19 09:43 O2 Sat by Pulse Oximetry (%) Laboratory Tests 01/18/19 01/18/19 01/18/19 10:10 14:20 14:20 WBC 2.9 L RBC 3.41 L Hgb 11.9 Hct 35.7 MCV 104.7 H MCH 34.7 H MCHC 33.2 RDW 14.3 Plt Count 287 D MPV 7.6 Sodium 135 L Potassium 5.2 H Chloride 100 Carbon Dioxide 30 Anion Gap 5 L BUN 21.5 H Creatinine 1.1 Est GFR (CKD-EPI)AfAm 87.13 Est GFR (CKD-EPI)NonAf 75.17 POC Glucometer Random Glucose 646 H* Hemoglobin A1c % Calcium 9.4 Total Bilirubin 0.4 AST 14 L ALT 31 Alkaline Phosphatase 96 Total Protein 8.4 H Albumin 3.2 L RPR Titer HIV 1&2 Ag/Ab, 4th Gen HIV 1&2 Antibody Screen Cancelled HIV P24 Antigen Cancelled 01/18/19 01/18/19 01/18/19 14:20 17:50 20:13 WBC RBC Hgb Hct MCV MCH MCHC RDW Plt Count MPV Sodium Potassium Chloride Carbon Dioxide Anion Gap BUN Creatinine Est GFR (CKD-EPI)AfAm Est GFR (CKD-EPI)NonAf POC Glucometer 541 172 Random Glucose Hemoglobin A1c % Calcium Total Bilirubin AST ALT Alkaline Phosphatase Total Protein Albumin RPR Titer Nonreactive HIV 1&2 Ag/Ab, 4th Gen HIV 1&2 Antibody Screen HIV P24 Antigen 01/19/19 01/19/19 01/19/19 06:31 11:46 16:29 WBC RBC Hgb Hct MCV MCH MCHC RDW Plt Count MPV Sodium Potassium Chloride Carbon Dioxide Anion Gap BUN Creatinine Est GFR (CKD-EPI)AfAm Est GFR (CKD-EPI)NonAf POC Glucometer [phone] Random Glucose Hemoglobin A1c % Calcium Total Bilirubin AST ALT Alkaline Phosphatase Total Protein Albumin RPR Titer HIV 1&2 Ag/Ab, 4th Gen HIV 1&2 Antibody Screen HIV P24 Antigen 01/19/19 01/20/19 01/20/19 20:43 05:07 07:00 WBC RBC Hgb Hct MCV MCH MCHC RDW Plt Count MPV Sodium Potassium Chloride Carbon Dioxide Anion Gap BUN Creatinine Est GFR (CKD-EPI)AfAm Est GFR (CKD-EPI)NonAf POC Glucometer 171 359 Random Glucose Hemoglobin A1c % 14.3 H Calcium Total Bilirubin AST ALT Alkaline Phosphatase Total Protein Albumin RPR Titer HIV 1&2 Ag/Ab, 4th Gen HIV 1&2 Antibody Screen HIV P24 Antigen 01/20/19 01/20/19 01/20/19 07:00 07:00 11:22 WBC 3.9 L RBC 3.08 L Hgb 10.8 L Hct 32.1 L MCV 104.0 H MCH 34.9 H MCHC 33.6 RDW 13.7 Plt Count 235 MPV 7.9 Sodium Potassium 5.0 Chloride Carbon Dioxide Anion Gap BUN Creatinine Est GFR (CKD-EPI)AfAm Est GFR (CKD-EPI)NonAf POC Glucometer 191 Random Glucose Hemoglobin A1c % Calcium Total Bilirubin AST ALT Alkaline Phosphatase Total Protein Albumin RPR Titer HIV 1&2 Ag/Ab, 4th Gen HIV 1&2 Antibody Screen HIV P24 Antigen 01/20/19 01/20/19 01/21/19 16:21 20:52 05:48 WBC RBC Hgb Hct MCV MCH MCHC RDW Plt Count MPV Sodium Potassium Chloride Carbon Dioxide Anion Gap BUN Creatinine Est GFR (CKD-EPI)AfAm Est GFR (CKD-EPI)NonAf POC Glucometer 193 351 363 Random Glucose Hemoglobin A1c % Calcium Total Bilirubin AST ALT Alkaline Phosphatase Total Protein Albumin RPR Titer HIV 1&2 Ag/Ab, 4th Gen HIV 1&2 Antibody Screen HIV P24 Antigen 01/21/19 01/21/19 01/21/19 10:00 11:21 16:45 WBC RBC Hgb Hct MCV MCH MCHC RDW Plt Count MPV Sodium Potassium Chloride Carbon Dioxide Anion Gap BUN Creatinine Est GFR (CKD-EPI)AfAm Est GFR (CKD-EPI)NonAf POC Glucometer 239 253 Random Glucose Hemoglobin A1c % Calcium Total Bilirubin AST ALT Alkaline Phosphatase Total Protein Albumin RPR Titer HIV 1&2 Ag/Ab, 4th Gen Non reactive HIV 1&2 Antibody Screen HIV P24 Antigen 01/21/19 01/22/19 01/22/19 21:56 07:02 12:07 WBC RBC Hgb Hct MCV MCH MCHC RDW Plt Count MPV Sodium Potassium Chloride Carbon Dioxide Anion Gap BUN Creatinine Est GFR (CKD-EPI)AfAm Est GFR (CKD-EPI)NonAf POC Glucometer 144 306 142 Random Glucose Hemoglobin A1c % Calcium Total Bilirubin AST ALT Alkaline Phosphatase Total Protein Albumin RPR Titer HIV 1&2 Ag/Ab, 4th Gen HIV 1&2 Antibody Screen HIV P24 Antigen LABS NOTED. Assessment: 01/22/19 16:15 WITHDRAWAL SYMPTOMS. HYPERGLYCEMIA. ANEMIA. LEUKOPENIA. Plan: CONTINUE DETOX. PATIENT ADVISED TO FOLLOW-UP WITH [facility] AFTER DISCHARGE FROM DETOX FOR GENERAL MEDICAL ASSESSMENT AND FOR ELEVATED GLUCOSE LEVELS AND FOR ANEMIA NOTED ON DETOX ADMISSION AND REPEAT LABORATORY ASSESSMENTS. PATIENT VERBALIZED UNDERSTANDING OF RECOMMENDATIONS. COPIES OF RESULTS OF ALL LABS DRAWN WHILE ADMITTED FOR DETOX WILL BE GIVEN TO PATIENT AT TIME OF DISCHARGE FROM DETOX UNIT. PATIENT SCHEDULED FOR D/C FROM DETOX UNIT TOMORROW.
[2019-01-22] MEDS: THIAMINE HCL 100 MG TABLET (FP) PO SCH (22:52)
[2019-01-22] MEDS: MELATONIN 5 MG TABLETS PO PRN (23:00)
[2019-01-23] MEDS ORDERED: METHADONE HCL 5 MG TABLET (FOR DETOX USE ONLY) PO ONE (06:00)
[2019-01-23] MEDS: MAG HYDROX/AL HYDROX/SIMETH 30 ML UNIT-DOSE CUP PO PRN ×2 (06:19→11:26)
[2019-01-23] MEDS: metFORMIN HCL 500 MG TABLET (FP) PO SCH (06:21)
[2019-01-23] MEDS: INSULIN SLIDING SCALE (NOVOLOG) 1 VIAL SQ SCH ×2 (07:37→11:41)
[2019-01-23] MEDS ORDERED: INSULIN SLIDING SCALE (NOVOLOG) 1 VIAL SQ ONE (07:39)
[2019-01-23 09:43] VITALS: BP 108/73; PULSE 85; TEMP 98.2
[2019-01-23] MEDS: NICOTINE 14 MG/24 HOURS TOPICAL PATCH TD SCH (10:53)
[2019-01-23] MEDS: PRENATAL VITAMINS W/ FOLIC ACID TABLET (FP) PO SCH (10:53)
--- NOTE | 2019-01-23 13:26 | DS ---
[facility] Detox Discharge Summary Admission Date: 01/18/19 Discharge Date: 01/23/19 - History Present History: Opioid Dependence Additional Comments: 54 years old male admitted on 01/18/19 for acute opiate withdrawal sx management doing well with methadone detox regimen no complication through out the detox stay alert oriented x 3 S1S2 regular clear lung bilaterally speech clearly coherently Pertinent Past History: diabetes II hypertension - Physical Exam Results Vital Signs: Vital Signs Temperature 98.2 F 01/23/19 09:43 Pulse Rate 85 01/23/19 09:43 Respiratory Rate 18 01/23/19 09:43 Blood Pressure 108/73 01/23/19 09:43 O2 Sat by Pulse Oximetry (%) Pertinent Admission Physical Exam Findings: opiate withdrawal sx Laboratory Last Values WBC 3.9 K/mm3 (4.0-10.0) L 01/20/19 07:00 RBC 3.08 M/mm3 (4.00-5.60) L 01/20/19 07:00 Hgb 10.8 GM/dL (11.7-16.9) L 01/20/19 07:00 Hct 32.1 % (35.4-49) L 01/20/19 07:00 MCV 104.0 fl (80-96) H 01/20/19 07:00 MCH 34.9 pg (25.7-33.7) H 01/20/19 07:00 MCHC 33.6 g/dl (32.0-35.9) 01/20/19 07:00 RDW 13.7 % (11.9-15.9) 01/20/19 07:00 Plt Count 235 K/MM3 (134-434) 01/20/19 07:00 MPV 7.9 fl (7.5-11.1) 01/20/19 07:00 Sodium 135 mmol/L (136-145) L 01/18/19 14:20 Potassium 5.0 mmol/L (3.5-5.1) 01/20/19 07:00 Chloride 100 mmol/L (98-107) 01/18/19 14:20 Carbon Dioxide 30 mmol/L (21-32) 01/18/19 14:20 Anion Gap 5 MMOL/L (8-16) L 01/18/19 14:20 BUN 21.5 mg/dL (7-18) H 01/18/19 14:20 Creatinine 1.1 mg/dL (0.55-1.3) 01/18/19 14:20 Est GFR (CKD-EPI)AfAm 87.13 01/18/19 14:20 Est GFR (CKD-EPI)NonAf 75.17 01/18/19 14:20 POC Glucometer 219 UNITS (80-120) 01/23/19 11:25 Random Glucose 646 mg/dL (74-106) H* 01/18/19 14:20 Hemoglobin A1c % 14.3 % (4.2-6.3) H 01/20/19 07:00 Calcium 9.4 mg/dL (8.5-10.1) 01/18/19 14:20 Total Bilirubin 0.4 mg/dL (0.2-1) 01/18/19 14:20 AST 14 U/L (15-37) L 01/18/19 14:20 ALT 31 U/L (13-61) 01/18/19 14:20 Alkaline Phosphatase 96 U/L (45-117) 01/18/19 14:20 Total Protein 8.4 g/dl (6.4-8.2) H 01/18/19 14:20 Albumin 3.2 g/dl (3.4-5.0) L 01/18/19 14:20 RPR Titer Nonreactive (NONREACTIVE) 01/18/19 14:20 HIV 1&2 Ag/Ab, 4th Gen Non reactive (Non Reactive) 01/21/19 10:00 HIV 1&2 Antibody Screen Cancelled 01/18/19 10:10 HIV P24 Antigen Cancelled 01/18/19 10:10 lab noted non adherence with diabetes medication - Treatment Hospital Course: Detox Protocol Followed, Detoxed Safely, Responded well, Discharged Condition Good, Rehab Referral Accepted Patient has Accepted [facility] - Medication Discharge Medications: Ambulatory Orders cloNIDine HCL [Catapres -] 0.1 mg PO ONCE 01/18/19 Metformin HCl [Glucophage] 1,000 mg PO BIDAC 01/20/19 - Diagnosis (1) Opioid dependence Status: Acute Qualifiers: Substance use status: uncomplicated Qualified Code(s): F11.20 - Opioid dependence, uncomplicated (2) IDDM (insulin dependent diabetes mellitus) Status: Chronic (3) Nicotine dependence Status: Acute Qualifiers: Nicotine product type: cigarettes Substance use status: in withdrawal Qualified Code(s): F17.213 - Nicotine dependence, cigarettes, with withdrawal (4) Weight loss Status: Acute (5) Substance induced mood disorder Status: Suspected (6) HTN (hypertension) Status: Chronic Qualifiers: Hypertension type: essential hypertension Qualified Code(s): I10 - Essential (primary) hypertension (7) IDDM (insulin dependent diabetes mellitus) Status: Chronic (8) Weight loss Status: Acute - AMA Did Patient Leave Against Medical Advice: No COWS (PN) - Opiate Withdrawal Resting Pulse: 1= [place] 81-100 Sweatin= Chills/Flushing Restless Observation: 0= Sits Still Pupil Size: 0= Normal to Room Light Bone or Joint Aches: 1= Mild Discomfort Runny Nose/ Eye Tearin= None GI Upset > 30mins: 0= None Tremor Observation of Outstretched Hands: 0= None Yawning Observation: 0= None Anxiety or Irritability: 1=Feels Anxious/Irritable Goose Flesh Skin: 0=Smooth Skin COWS Score: 4
[2019-01-23] MEDS ORDERED: metFORMIN HCL 500 MG TABLET (FP) PO SCH (16:30)
== END 2019-01-23 11:43 | disposition other institution (70) | DRG 773 ==
LOC: YASAS 11:59 → Y3N 14:33
PROVIDERS: ADMIT Surgery; ATTEND Surgery
PROC: HZ2ZZZZ Detoxification Services for Substance Abuse Treatment (ICD-10-PCS; principal; 2019-01-18)
DX: F11.23 Opioid dependence with withdrawal (principal); F17.213 Nicotine dependence, cigarettes, with withdrawal; F19.24 Other psychoactive substance dependence with psychoactive substance-induced mood disorder; I10 Essential (primary) hypertension; E11.65 Type 2 diabetes mellitus with hyperglycemia; R63.4 Abnormal weight loss; D64.9 Anemia, unspecified; D72.819 Decreased white blood cell count, unspecified; Z79.4 Long term (current) use of insulin
CPT/HCPCS: 36415; 80053; 82962; 83036; 84132; 85027; 86593; 87389

== ENCOUNTER 2019-01-23 11:29 | Inpatient (IN) | payer OTHER ==
[2019-01-23] MEDS ORDERED: NICOTINE POLACRILEX 2 MG GUM BUC PRN (13:32)
[2019-01-23] MEDS ORDERED: NICOTINE 14 MG/24 HOURS TOPICAL PATCH TD PRN (13:32)
[2019-01-23] MEDS ORDERED: guaiFENesin 200 MG/10 ML 10 ML UNIT-DOSE CUPS PO PRN (13:32)
[2019-01-23] MEDS ORDERED: MAG HYDROX/AL HYDROX/SIMETH 30 ML UNIT-DOSE CUP PO PRN (13:32)
[2019-01-23] MEDS ORDERED: MAGNESIUM CITRATE 300 ML BOTTLE PO PRN (13:32)
[2019-01-23] MEDS ORDERED: P-EPHED 60MG/TRIPROLIDI 2.5MG TABLET PO PRN (13:32)
[2019-01-23] MEDS ORDERED: IBUPROFEN 400 MG TABLET (FP) PO PRN (13:32)
[2019-01-23] MEDS ORDERED: MENTHOL/PHENOL 1 EACH UD MM PRN (13:32)
[2019-01-23] MEDS ORDERED: LOPERAMIDE HCL 2 MG CAPSULE PO PRN (13:32)
[2019-01-23] MEDS ORDERED: MAGNESIUM HYDROX 2400MG/30ML ORAL SUSPENSION 30 ML CUP PO PRN (13:32)
--- NOTE | 2019-01-23 13:32 | HP ---
[facility] Rehab Assess/Revision - Admission History Admitted to Rehab from: [facility] Date of Admission to Rehab: 01/23/19 - Vital signs Vital Signs: Vital Signs Period Temp Pulse Resp BP Sys/Griggs Pulse Ox Last 24 Hr 100.9 F 105 18 93/71 - Findings Detox History & Physical reviewed: Yes Concur with findings: Yes Comments/Additional Findings: transferred from detox to rehab admission as per protocol Inpatient Rehab Admission - Rehab Decision to Admit Inpatient rehab admission?: Yes - Initial Determination Are CD services needed?: Yes Free of communicable disease: Yes Not in need of hospitalization: Yes - Rehab Admission Criteria Previous failed treatment: Yes Poor recovery environment: Yes Comorbidities: Yes Lacks judgement: No Patient is meeting Inpatient Rehab admission criteria:: Yes
[2019-01-23] MEDS: metFORMIN HCL 500 MG TABLET (FP) PO SCH (16:46)
[2019-01-23] MEDS: INSULIN SLIDING SCALE (NOVOLOG) 1 VIAL SQ SCH ×2 (17:16→21:23)
[2019-01-23] MEDS: THIAMINE HCL 100 MG TABLET (FP) PO SCH (21:23)
[2019-01-23] MEDS: MELATONIN 5 MG TABLETS PO PRN (21:23)
[2019-01-23] MEDS ORDERED: INSULIN (NOVOLOG) ASPART 100 UNITS/ML 10ML VIAL ONE (22:11)
[2019-01-24] MEDS ORDERED: INSULIN (NOVOLOG) ASPART 100 UNITS/ML 10ML VIAL ONE (07:18)
[2019-01-24] MEDS: INSULIN SLIDING SCALE (NOVOLOG) 1 VIAL SQ SCH ×4 (07:35→21:11)
[2019-01-24] MEDS: metFORMIN HCL 500 MG TABLET (FP) PO SCH ×2 (07:35→16:44)
[2019-01-24] MEDS: PRENATAL VITAMINS W/ FOLIC ACID TABLET (FP) PO SCH (10:38)
[2019-01-24] MEDS: MELATONIN 5 MG TABLETS PO PRN (21:11)
[2019-01-24] MEDS: THIAMINE HCL 100 MG TABLET (FP) PO SCH (21:11)
[2019-01-25] MEDS: metFORMIN HCL 500 MG TABLET (FP) PO SCH ×2 (06:42→16:49)
[2019-01-25] MEDS: INSULIN SLIDING SCALE (NOVOLOG) 1 VIAL SQ SCH ×4 (06:42→21:21)
[2019-01-25] MEDS: PRENATAL VITAMINS W/ FOLIC ACID TABLET (FP) PO SCH (09:55)
[2019-01-25] MEDS ORDERED: INSULIN (NOVOLOG) ASPART 100 UNITS/ML 10ML VIAL ONE (11:55)
[2019-01-25] MEDS: THIAMINE HCL 100 MG TABLET (FP) PO SCH (21:21)
[2019-01-25] MEDS: MELATONIN 5 MG TABLETS PO PRN (21:21)
[2019-01-26] MEDS ORDERED: INSULIN SLIDING SCALE (NOVOLOG) 1 VIAL SQ ONE (06:44)
[2019-01-26] MEDS: metFORMIN HCL 500 MG TABLET (FP) PO SCH ×2 (07:30→16:24)
[2019-01-26] MEDS: INSULIN SLIDING SCALE (NOVOLOG) 1 VIAL SQ SCH ×4 (07:30→22:25)
[2019-01-26] MEDS: PRENATAL VITAMINS W/ FOLIC ACID TABLET (FP) PO SCH (10:38)
[2019-01-26] MEDS ORDERED: INSULIN (NOVOLOG) ASPART 100 UNITS/ML 10ML VIAL ONE (11:54)
[2019-01-26] MEDS: THIAMINE HCL 100 MG TABLET (FP) PO SCH (22:26)
[2019-01-27] MEDS ORDERED: INSULIN (NOVOLOG) ASPART 100 UNITS/ML 10ML VIAL ONE ×2 (06:30→11:58)
[2019-01-27] MEDS: metFORMIN HCL 500 MG TABLET (FP) PO SCH ×2 (07:34→16:32)
[2019-01-27] MEDS: INSULIN SLIDING SCALE (NOVOLOG) 1 VIAL SQ SCH ×4 (07:35→21:40)
[2019-01-27] MEDS: PRENATAL VITAMINS W/ FOLIC ACID TABLET (FP) PO SCH (10:12)
--- NOTE | 2019-01-27 12:01 | PN ---
"BHS COWS - Scale Resting Pulse: 1= [place] 81-100 Sweatin=Flushed/Facial Moisture Restless Observation: 0= Sits Still Pupil Size: 1= Pupils >than Normal Bone or Joint Aches: 2= Severe Diffuse Aches Runny Nose/ Eye Tearin= Nasal Congestion GI Upset > 30mins: 1= Stomach Cramp Tremor Observation of Outstretched Hands: 2= Slight Tremor Visible Yawning Observation: 0= None Anxiety or Irritability: 2=Irritable/Anxious Goose Flesh Skin: 0=Smooth Skin COWS Score: 12 BHS Progress Note (SOAP) Subjective: Patient is c/o withdrawal symptoms. States he feels like there is a knot in his stomach, he is lethargic, he has muscle aches. He was in detox and tapered off of methadone. According to the patient, he has used suboxone in the past and it enabled him to work and felt good on suboxone. Review of I-stop indicates that he used suboxone in july of 2018, did not have a prescription for suboxone in August of 2018, then was prescribed suboxone in september by a provider in [place], then in [place] her was prescribed suboxone in October and November. Objective: This report was requested by: Lin Andersen | Reference #: [id number] 11/25/2018 12/20/2018 buprenorphine-naloxone 8-2 mg sl film 30 15 Cody Soares MD 11/25/2018 11/25/2018 buprenorphine-naloxone 8-2 mg sl film 30 15 Cody Soares MD 11/01/2018 11/02/2018 buprenorphine-naloxone 8-2 mg sl film 30 15 Cody Soares MD 10/25/2018 10/25/2018 buprenorphine-naloxone 8-2 mg sl film 14 7 Cody Soares MD Patient Name: Jamie Kiser Date: 1965 Address: [address] [place] [address] Sex: Male 07/22/2018 07/22/2018 zubsolv 1.4-0.36 mg tablet sl 22 22 LaksLuis M MD 07/20/2018 07/20/2018 zubsolv 0.7-0.18 mg tablet sl 10 5 Laks, Luis M BOTELLO 01/27/19 11:56 Prescriptions Dispensed in [place] Patient Name: JAMIE KISER Date: 1965 Address: [address] [place] [address] Sex: Male 09/24/2018 09/24/2018 BUPRENORP-NALOX 8-2 MG SL FILM 28.0 14 MD MAGGIE, HEMALATHA 01/27/19 12:06 Urine Toxicology shows methadone. 01/27/19 12:07 - Physical General Appearance: Mild Distress,cachectic HEENTM: Normocephalic, Pharynx Normal, pupils> 1cm Respiratory: Lungs Clear, Neck: supple Cardiology: Regular Rhythm, Regular Rate, S1, S2 Abdominal: +Bowel Sounds, Non Tender, Flat Musculoskeletal: full range of Motion, 3 point gait Neurological: dip filler II-XII NML intact, Integumentary: Color consistent throughout trunk and extremities. Lymphatic: Yes: Within Normal Limit Assessment: Opiois withdrawal symptoms. 01/27/19 12:06 Plan: Will start suboxone 2mg once a day. Will discuss with counselor the need to refer patient to a program to continue suboxone treatment."
[2019-01-27] MEDS: BUPRENORPHINE/NALOXONE 2 MG/0.5 MG FILM PACKET SL SCH (13:48)
[2019-01-27] MEDS: hydrOXYzine PAMOATE 25 MG CAPSULE (FP) PO PRN ×2 (16:32→21:38)
[2019-01-27] MEDS: THIAMINE HCL 100 MG TABLET (FP) PO SCH (21:38)
[2019-01-27] MEDS: MELATONIN 5 MG TABLETS PO PRN (21:38)
[2019-01-28] MEDS ORDERED: INSULIN (NOVOLOG) ASPART 100 UNITS/ML 10ML VIAL ONE ×2 (07:01→11:50)
[2019-01-28] MEDS: INSULIN SLIDING SCALE (NOVOLOG) 1 VIAL SQ SCH ×4 (07:02→21:26)
[2019-01-28] MEDS: metFORMIN HCL 500 MG TABLET (FP) PO SCH ×2 (07:02→16:35)
[2019-01-28] MEDS: BUPRENORPHINE/NALOXONE 2 MG/0.5 MG FILM PACKET SL SCH (09:21)
[2019-01-28] MEDS: PRENATAL VITAMINS W/ FOLIC ACID TABLET (FP) PO SCH (09:21)
[2019-01-28] MEDS: THIAMINE HCL 100 MG TABLET (FP) PO SCH (21:23)
[2019-01-28] MEDS: hydrOXYzine PAMOATE 25 MG CAPSULE (FP) PO PRN (21:26)
[2019-01-28] MEDS: MELATONIN 5 MG TABLETS PO PRN (21:27)
[2019-01-29] MEDS ORDERED: INSULIN (NOVOLOG) ASPART 100 UNITS/ML 10ML VIAL ONE ×3 (07:07→17:09)
[2019-01-29] MEDS: INSULIN SLIDING SCALE (NOVOLOG) 1 VIAL SQ SCH ×4 (08:13→21:36)
[2019-01-29] MEDS: metFORMIN HCL 500 MG TABLET (FP) PO SCH ×2 (08:13→17:06)
[2019-01-29] MEDS: PRENATAL VITAMINS W/ FOLIC ACID TABLET (FP) PO SCH (10:00)
[2019-01-29] MEDS: BUPRENORPHINE/NALOXONE 2 MG/0.5 MG FILM PACKET SL SCH (10:01)
[2019-01-29] MEDS: THIAMINE HCL 100 MG TABLET (FP) PO SCH (21:36)
[2019-01-29] MEDS: hydrOXYzine PAMOATE 25 MG CAPSULE (FP) PO PRN (21:37)
[2019-01-29] MEDS: MELATONIN 5 MG TABLETS PO PRN (21:38)
[2019-01-30] MEDS: metFORMIN HCL 500 MG TABLET (FP) PO SCH ×2 (07:58→17:02)
[2019-01-30] MEDS: INSULIN SLIDING SCALE (NOVOLOG) 1 VIAL SQ SCH ×4 (07:58→21:53)
[2019-01-30] MEDS: PRENATAL VITAMINS W/ FOLIC ACID TABLET (FP) PO SCH (09:42)
[2019-01-30] MEDS: BUPRENORPHINE/NALOXONE 2 MG/0.5 MG FILM PACKET SL SCH (09:43)
[2019-01-30] MEDS ORDERED: INSULIN (NOVOLOG) ASPART 100 UNITS/ML 10ML VIAL ONE (17:14)
[2019-01-30] MEDS: MELATONIN 5 MG TABLETS PO PRN (21:53)
[2019-01-30] MEDS: THIAMINE HCL 100 MG TABLET (FP) PO SCH (21:54)
[2019-01-31] MEDS: metFORMIN HCL 500 MG TABLET (FP) PO SCH ×2 (07:32→16:51)
[2019-01-31] MEDS: INSULIN SLIDING SCALE (NOVOLOG) 1 VIAL SQ SCH ×4 (07:33→21:09)
[2019-01-31] MEDS: BUPRENORPHINE/NALOXONE 2 MG/0.5 MG FILM PACKET SL SCH (10:30)
[2019-01-31] MEDS: PRENATAL VITAMINS W/ FOLIC ACID TABLET (FP) PO SCH (10:55)
[2019-01-31] MEDS ORDERED: BUPRENORPHINE/NALOXONE 2 MG/0.5 MG FILM PACKET SL ONE (11:05)
[2019-01-31] MEDS ORDERED: INSULIN (NOVOLOG) ASPART 100 UNITS/ML 10ML VIAL ONE ×2 (11:33→17:13)
--- NOTE | 2019-01-31 12:07 | PN ---
BHS COWS - Scale Resting Pulse: 2= [place] 101-120 Sweatin= Chills/Flushing Restless Observation: 1= Difficult to Sit Still Pupil Size: 1= Pupils >than Normal Bone or Joint Aches: 1= Mild Discomfort Runny Nose/ Eye Tearin= Nasal Congestion GI Upset > 30mins: 1= Stomach Cramp Tremor Observation of Outstretched Hands: 2= Slight Tremor Visible Yawning Observation: 0= None Anxiety or Irritability: 2=Irritable/Anxious Goose Flesh Skin: 0=Smooth Skin COWS Score: 12 BHS Progress Note (SOAP) Subjective: Continues to feel irritable and anxious and experience withdrawal symptoms. Presently on 2mg daily. Objective: See COWS. General: Irritable HEENT: PERRLA, pupils> 1mm Lungs: clear Heart: s1 s2 audible Abd: soft, non-tender, +BS MSK: full weight bearing, full ROM Neuro: CN 2-12 intact. 01/31/19 12:05 Assessment: Withdrawal from opiates. 01/31/19 12:06 Plan: Increased to 4m today. Tomorrow will start on 4mg BID.
[2019-01-31] MEDS: MELATONIN 5 MG TABLETS PO PRN (21:10)
[2019-01-31] MEDS: THIAMINE HCL 100 MG TABLET (FP) PO SCH (22:23)
[2019-02-01] MEDS: ACETAMINOPHEN 325 MG TABLET (FP) PO PRN (00:46)
[2019-02-01] MEDS ORDERED: INSULIN (NOVOLOG) ASPART 100 UNITS/ML 10ML VIAL ONE (07:21)
[2019-02-01] MEDS: metFORMIN HCL 500 MG TABLET (FP) PO SCH ×2 (07:35→16:58)
[2019-02-01] MEDS: INSULIN SLIDING SCALE (NOVOLOG) 1 VIAL SQ SCH ×4 (07:35→20:59)
[2019-02-01] MEDS: PRENATAL VITAMINS W/ FOLIC ACID TABLET (FP) PO SCH (09:28)
[2019-02-01] MEDS: BUPRENORPHINE/NALOXONE 4 MG/1 MG FILM PACKET SL SCH ×2 (09:28→21:00)
[2019-02-01] MEDS: MELATONIN 5 MG TABLETS PO PRN (21:00)
[2019-02-01] MEDS: THIAMINE HCL 100 MG TABLET (FP) PO SCH (21:00)
[2019-02-02] MEDS: ACETAMINOPHEN 325 MG TABLET (FP) PO PRN (01:03)
[2019-02-02] MEDS: hydrOXYzine PAMOATE 25 MG CAPSULE (FP) PO PRN ×2 (01:03→09:48)
[2019-02-02] MEDS ORDERED: INSULIN (NOVOLOG) ASPART 100 UNITS/ML 10ML VIAL ONE ×2 (07:02→11:40)
[2019-02-02] MEDS: metFORMIN HCL 500 MG TABLET (FP) PO SCH ×2 (07:30→16:37)
[2019-02-02] MEDS: INSULIN SLIDING SCALE (NOVOLOG) 1 VIAL SQ SCH ×4 (07:31→21:32)
[2019-02-02] MEDS: PRENATAL VITAMINS W/ FOLIC ACID TABLET (FP) PO SCH (09:47)
[2019-02-02] MEDS: BUPRENORPHINE/NALOXONE 4 MG/1 MG FILM PACKET SL SCH ×2 (09:47→21:31)
[2019-02-02] MEDS: THIAMINE HCL 100 MG TABLET (FP) PO SCH (21:31)
[2019-02-02] MEDS: MELATONIN 5 MG TABLETS PO PRN (21:32)
[2019-02-03] MEDS: metFORMIN HCL 500 MG TABLET (FP) PO SCH ×2 (07:46→16:43)
[2019-02-03] MEDS ORDERED: INSULIN (NOVOLOG) ASPART 100 UNITS/ML 10ML VIAL ONE ×2 (07:48→11:45)
[2019-02-03] MEDS: INSULIN SLIDING SCALE (NOVOLOG) 1 VIAL SQ SCH ×4 (07:50→21:27)
[2019-02-03] MEDS: PRENATAL VITAMINS W/ FOLIC ACID TABLET (FP) PO SCH (09:52)
[2019-02-03] MEDS: BUPRENORPHINE/NALOXONE 4 MG/1 MG FILM PACKET SL SCH ×2 (09:52→21:26)
[2019-02-03] MEDS: MELATONIN 5 MG TABLETS PO PRN (21:26)
[2019-02-03] MEDS: THIAMINE HCL 100 MG TABLET (FP) PO SCH (21:26)
[2019-02-04] MEDS: hydrOXYzine PAMOATE 25 MG CAPSULE (FP) PO PRN (00:36)
[2019-02-04] MEDS ORDERED: INSULIN (NOVOLOG) ASPART 100 UNITS/ML 10ML VIAL ONE (05:48)
[2019-02-04 07:02] VITALS: BP 125/86; PULSE 91; TEMP 98.1
[2019-02-04] MEDS: metFORMIN HCL 500 MG TABLET (FP) PO SCH (07:40)
[2019-02-04] MEDS: INSULIN SLIDING SCALE (NOVOLOG) 1 VIAL SQ SCH (07:40)
--- NOTE | 2019-02-04 09:20 | DS ---
[facility] Rehab Discharge Summary - [facility] Rehab Discharge Summary Admission Date: 01/23/19 Discharge Date: 02/04/19 - History Present History: Cocaine dependence, Opioid dependence - Discharge Physical Exam Vital Signs: Vital Signs Temperature 98.1 F 02/04/19 07:01 Pulse Rate 91 H 02/04/19 07:01 Respiratory Rate 18 02/04/19 07:01 Blood Pressure 125/86 02/04/19 07:01 O2 Sat by Pulse Oximetry (%) Pertinent Admission Physical Exam Findings: alert and oriented x 3 skin warm and dry neck supple, no jvd car s1s2 resp cta bl ext full rom, amb ad kathy - Treatment Discharge Condition: Discharge condition good Hospital Course: Patient completed rehab today and reports he was able to attain all rehab goals. Patient attended meetings and states he is motivated to maintain sobriety. During course of admission, patient restarted on Suboxone MAT for Opiod dependence. Patient tolerated treatment well and remained medically stable at time of discharge. Patient denies SI/HI. - Medication Discharge Medications: Ambulatory Orders cloNIDine HCL [Catapres -] 0.1 mg PO ONCE 01/18/19 Blood Sugar Diagnostic [Glucose Test Strip] 1 each MC AC #90 strip 02/04/19 Buprenorphine/Naloxone [Suboxone 8Mg/2Mg Sl Film -] 1 each SL DAILY #14 packet MDD 8mg 02/04/19 Metformin HCl [Glucophage] 1,000 mg PO BIDAC #30 tablet 02/04/19 - Medication-Assisted Treatment (MAT) Medication-Assisted Treatment (MAT): Yes Medication Prescribed: Buprenorphine MAT Follow-up Referral: [facility] Outpatient program. Patient to call and make appointment next week 02/08/19. - Discharge Instructions Diet, activity, other medical instructions: Diet: Activity: Other medical instructions: - Follow-up Referral Minutes to complete discharge: 30 - AMA Did Patient Leave Against Medical Advice: No
== END 2019-02-04 09:00 | disposition home or self-care (01) | DRG 772 ==
LOC: YASAS 11:29 → Y3W 11:31
PROVIDERS: ADMIT Neuromusculoskeletal Medicine & OMM; ATTEND Neuromusculoskeletal Medicine & OMM
PROC: HZ42ZZZ Group Counseling for Substance Abuse Treatment, Cognitive-Behavioral (ICD-10-PCS; principal; 2019-01-23)
DX: F11.20 Opioid dependence, uncomplicated (principal); F14.20 Cocaine dependence, uncomplicated; F17.210 Nicotine dependence, cigarettes, uncomplicated; I10 Essential (primary) hypertension; E11.9 Type 2 diabetes mellitus without complications; Z79.4 Long term (current) use of insulin
CPT/HCPCS: 82962

== ENCOUNTER 2019-05-27 14:59 | Inpatient (IN) | payer OTHER ==
[2019-05-27 15:50] VITALS: BMI 18.1
--- NOTE | 2019-05-27 20:08 | HP ---
COWS - Scale Resting Pulse: 1= [place] 81-100 (HR: 86) Sweatin=Flushed/Facial Moisture Restless Observation: 1= Difficult to Sit Still Pupil Size: 2= Moderately Dilated (Pupils = 5 mm) Bone or Joint Aches: 0= None Runny Nose/ Eye Tearin= Runny Nose/Eyes GI Upset > 30mins: 2= Nausea/Diarrhea Tremor Observation: 4= Gross Tremor/Twitching Yawning Observation: 0= None Anxiety or Irritability: 1=Feels Anxious/Irritable Goose Flesh Skin: 0=Smooth Skin COWS Score: 15 CIWA Score - Admission Criteria OASAS Guidelines: Admission for Medically Managed Detox: Requires at least one of the followin. CIWA greater than 12 2. Seizures within the past 24 hours 3. Delirium tremens within the past 24 hours 4. Hallucinations within the past 24 hours 5. Acute intervention needed for co occurring medical disorder 6. Acute intervention needed for co occurring psychiatric disorder 7. Severe withdrawal that cannot be handled at a lower level of care (continued vomiting, continued diarrhea, abnormal vital signs) requiring intravenous medication and/or fluids 8. Admitting History and Physical - Smoking History Smoking history: Current every day smoker Have you smoked in the past 12 months: Yes Aproximately how many cigarettes per day: 20 - Alcohol/Substance Use Hx Alcohol Use: No Admission ROS [facility] Chief Complaint: States I need detox and rehab. Allergies/Adverse Reactions: Allergies Allergy/AdvReac Type Severity Reaction Status Date / Time Fish Containing Products Allergy Intermediate Hives Verified 05/27/19 15:42 History of Present Illness: 54 yo presents w/ opioid withdrawal symptoms seeking detox. Discharge from [facility] in Jan - states didn't relapse unti February. Denies seizures, blackouts, overdoses. Denies falls. Utox: = ALBERT/MOP CHARBEL: 0.0 State last took Suboxone over [address] Shabazz only gives 1 week of meds at a time. Unable to reach Dr. Shabazz for confirmation ([phone]) but urine tox w/o BUP. Opioid use since age 13. States uses 12 bags heroin daily. Nasal. Last used this am. Alcohol use since age 11. Currently drinks 4 - 25 oz cans/week. Cocaine use since age 13. Currently uses $15 bags doinl. Sniffs and smokes. Nicotine use since age 10. Currently smokes 1 PPD. PMHx: Denies. MHHx: Insomnia. Denies depression. Denies thoughts of harm to self or others. SHx: Domiciled. Unemployed. Denies current legal issues. Patient Name: Jamie Kiser Date: 1965 Address: [address] [place] [address] Sex: Male Rx Written Rx Dispensed Drug Quantity Days Supply Prescriber Name 05/11/2019 05/13/2019 buprenorphine-naloxone 8-2 mg sl film 90 30 Radha Shabazz MD 04/18/2019 04/19/2019 buprenorphine-naloxone 8-2 mg sl film 90 30 Radha Shabazz MD Patient Name: Jamie Kiser Date: 1965 Address: [address] [place] [address] Sex: Male Rx Written Rx Dispensed Drug Quantity Days Supply Prescriber Name 04/06/2019 04/07/2019 buprenorphine-naloxone 8-2 mg sl film 14 7 Adilene Morse 11/25/2018 12/20/2018 buprenorphine-naloxone 8-2 mg sl film 30 15 Cody Soares MD 11/25/2018 11/25/2018 buprenorphine-naloxone 8-2 mg sl film 30 15 Cody Soares MD 11/01/2018 11/02/2018 buprenorphine-naloxone 8-2 mg sl film 30 15 Cody Soares MD 10/25/2018 10/25/2018 buprenorphine-naloxone 8-2 mg sl film 14 7 Cody Soares MD Patient Name: Jamie Kiser Date: 1965 Address: [address] [place] [id number] Sex: Male Rx Written Rx Dispensed Drug Quantity Days Supply Prescriber Name 03/03/2019 03/03/2019 buprenorphine-naloxone 8-2 mg sl film 60 30 Lolly Hernandez 02/21/2019 02/21/2019 buprenorphine-naloxone 8-2 mg sl film 14 7 Chely Grier NP 02/18/2019 02/18/2019 buprenorphine-naloxone 4-1 mg sl film 7 7 Chely Grier NP Patient Name: Jamie Kiser Date: 1965 Address: [address] [place] [address] Sex: Male Rx Written Rx Dispensed Drug Quantity Days Supply Prescriber Name 02/04/2019 02/08/2019 buprenorphine-naloxone 8-2 mg sl film 14 14 Astrid Saez NP Patient Name: Jamie Kiser Date: 1965 Address: [address] [place] [address] Sex: Male Rx Written Rx Dispensed Drug Quantity Days Supply Prescriber Name 07/22/2018 07/22/2018 zubsolv 1.4-0.36 mg tablet sl 22 22 LaksLuis M MD 07/20/2018 07/20/2018 zubsolv 0.7-0.18 mg tablet sl 10 5 LaksLuis M MD Prescriptions Dispensed in [place] Patient Name: JAMIE KISER Date: 1965 Address: [address] [facility] [address] [place] [address] Sex: Male Rx Written Rx Dispensed Drug Strength Quantity Days Supply Prescriber Name 09/24/2018 09/24/2018 BUPRENORP-NALOX 8-2 MG SL FILM 28.0 14 MD SERRANO DOUGLAS Exam Limitations: No Limitations - Ebola screening Have you traveled outside of the country in the last 21 days: No ([place]) Have you had contact with anyone from an Ebola affected area: No Have you been sick,other than usual withdrawal symptoms: No Do you have a fever: No - Review of Systems Constitutional: Chills, Diaphoresis, Changes in sleep (Difficulty falling and staying asleep - not on meds), Unintentional Wgt. Loss EENT: reports: Blurred Vision, Nose Congestion, Other ((L) eye problems.) Respiratory: reports: Cough (x 2 days. Denies CP) Cardiac: reports: No Symptoms Reported GI: reports: Diarrhea (Watery, brownish x 3 while waiting), Nausea : reports: No Symptoms Reported Musculoskeletal: reports: No Symptoms Reported Integumentary: reports: No Symptoms Reported Neuro: reports: Tremors Endocrine: reports: Increased Thirst Hematology: reports: No Symptoms Reported Psychiatric: reports: Orientated x3, Anxious Patient History - Patient Medical History Hx Anemia: No Hx Asthma: No Hx Chronic Obstructive Pulmonary Disease (COPD): No Hx Cancer: No Hx Cardiac Disorders: No Hx Congestive Heart Failure: No Hx Hypertension: No Hx Hypercholesterolemia: No Hx Pacemaker: No HX Cerebrovascular Accident: No Hx Seizures: No Hx Dementia: No Hx Diabetes: Yes Hx Gastrointestinal Disorders: No Hx Liver Disease: No Hx Genitourinary Disorders: No Hx Sexually Transmitted Disorders: No Hx Renal Disease (ESRD): No Hx Thyroid Disease: No Hx Human Immunodeficiency Virus (HIV): No (last 04/21/18 negative) Hx Hepatitis C: No Hx Depression: No Hx Suicide Attempt: No Hx Bipolar Disorder: No Hx Schizophrenia: Yes - Patient Surgical History Past Surgical History: Yes Hx Neurologic Surgery: No Hx Cataract Extraction: No Hx Cardiac Surgery: No Hx Lung Surgery: No Hx Breast Surgery: No Hx Breast Biopsy: No Hx Abdominal Surgery: No Hx Appendectomy: No Hx Cholecystectomy: No Hx Genitourinary Surgery: No Hx Orthopedic Surgery: Yes (L shoulder dislocation sx 30 yrs ago.) Anesthesia Reaction: No - PPD History Previous Implant?: Yes Documented Results: Negative w/proof Implanted On Prior [facility] Admission?: Yes Date: 04/28/18 Results: 0 mm PPD to be Administered?: Yes - Smoking Cessation Smoking history: Current every day smoker Have you smoked in the past 12 months: Yes Aproximately how many cigarettes per day: 20 Cigars Per Day: 0 Hx Chewing Tobacco Use: No Initiated information on smoking cessation: Yes 'Breaking Loose' booklet given: 05/27/19 - Substance & Tx. History Hx Alcohol Use: Yes Hx Substance Use: Yes Substance Use Type: Alcohol, Cocaine, Heroin Hx Substance Use Treatment: Yes (detox, rehab, Suboxone) - Substances abused Heroin Substance route: Inhalation Frequency: Daily Amount used: 15 bags Age of first use: 13 Date of last use: 05/27/19 Cocaine Substance route: Smoking Frequency: Daily Amount used: 5-6 bags Age of first use: 13 Date of last use: 05/27/19 Alcohol Substance route: Oral Frequency: 1-2 times per week Amount used: beers- 2cans 24oz Age of first use: 11 Date of last use: 05/26/19 Admission Physical Exam BHS - Vital Signs Vital Signs: Vital Signs - 24 hr 05/27/19 15:36 Temperature 98.6 F Pulse Rate 76 Respiratory 18 Rate Blood Pressure 153/97 - Physical General Appearance: Yes: Mild Distress, Moderate Distress, Cachetic, Tremorous, Sweating (Increased facial moisture), Anxious HEENTM: Yes: EOMI, Hearing grossly Normal, Normocephalic, Normal Voice, NAVEEN ( Pupils = 5 mm), Pharynx Normal (Thick whitish saliva), Nasal Congestion, Rhinorrhea, Other (No teeth) Respiratory: Yes: Lungs Clear (Pulse Ox = 98 %), Normal Breath Sounds, No Respiratory Distress, Other (Spontaneous cough productive whitish/yellowish phlegm) Neck: Yes: No masses,lesions,Nodules, Supple Breast: Yes: Breast Exam Deferred Cardiology: Yes: Regular Rhythm, S1, S2, Murmur Abdominal: Yes: Flat, Soft, Increased Bowel Sounds, Tenderness ((L) and (R) UQ tenderness upon palpation. No rebound. No guarding.) Genitourinary: Yes: Within Normal Limits Back: Yes: Normal Inspection Musculoskeletal: Yes: full range of Motion, Gait Steady Extremities: Yes: Normal Capillary Refill, Tremors Neurological: Yes: atg java developer II-XII NML intact, Fully Oriented, Alert, Motor Strength 5/5, Normal Response Integumentary: Yes: Normal Color, Dry (Very dry, flaky skin. (except for increased facial moisture)), Warm, Other (Dry flaky skin feet and toes) Lymphatic: Yes: Within Normal Limits - Diagnostic (1) At risk for dehydration Current Visit: Yes Status: Acute (2) Dry skin dermatitis Current Visit: Yes Status: Chronic (3) Opioid dependence with withdrawal Current Visit: Yes Status: Acute (4) Weight loss Current Visit: Yes Status: Chronic (5) Cocaine dependence Current Visit: Yes Status: Chronic Qualifiers: Substance use status: uncomplicated Qualified Code(s): F14.20 - Cocaine dependence, uncomplicated (6) HTN (hypertension) Current Visit: Yes Status: Chronic Qualifiers: Hypertension type: unspecified Qualified Code(s): I10 - Essential (primary ) hypertension (7) Nicotine dependence Current Visit: Yes Status: Chronic Qualifiers: Nicotine product type: cigarettes Substance use status: in withdrawal Qualified Code(s): F17.213 - Nicotine dependence, cigarettes, with withdrawal (8) Tinea pedis of both feet Current Visit: Yes Status: Chronic (9) Cough Current Visit: Yes Status: Acute Comment: x 2 days (10) Murmur, cardiac Current Visit: Yes Status: Acute Comment: non-specific Cleared for Admission S - Detox or Rehab [facility] Level of Care: Medically Managed Detox Regimen/Protocol: Methadone Claeared for Rehab Admission: No Breathalyzer - Breathalyzer Breathalyzer: 0 Urine Drug Screen - Test Device Lot number: [id number] Expiration date: 01/04/21 - Control Is test valid?: Yes - Results Drug screen NEGATIVE: No Urine drug screen results: ALBERT-Cocaine, MOP-Opiates Inpatient Rehab Admission - Rehab Decision to Admit Inpatient rehab admission?: No
[2019-05-27] MEDS ORDERED: BISMUTH SUBSALICYLATE 524 MG/30 ML UD PO PRN (21:32)
[2019-05-27] MEDS ORDERED: IBUPROFEN 400 MG TABLET (FP) PO PRN (21:32)
[2019-05-27] MEDS ORDERED: MAGNESIUM CITRATE 300 ML BOTTLE PO PRN (21:32)
[2019-05-27] MEDS ORDERED: MAG HYDROX/AL HYDROX/SIMETH 30 ML UNIT-DOSE CUP PO PRN (21:32)
[2019-05-27] MEDS ORDERED: MAGNESIUM HYDROX 2400MG/30ML ORAL SUSPENSION 30 ML CUP PO PRN (21:32)
[2019-05-27] MEDS ORDERED: NICOTINE POLACRILEX 2 MG GUM BUC PRN (21:32)
[2019-05-27] MEDS ORDERED: MENTHOL/PHENOL 1 EACH UD MM PRN (21:32)
[2019-05-27] MEDS ORDERED: ACETAMINOPHEN 325 MG TABLET (FP) PO PRN ×2 (21:32)
[2019-05-27] MEDS ORDERED: clonazePAM 0.5 MG TABLET PO PRN (21:50)
[2019-05-27] MEDS ORDERED: MINERAL OIL/PETROLAT/WATER TOPICAL CREAM 454 GM JAR TP PRN (21:52)
[2019-05-27] MEDS ORDERED: METHADONE HCL 10 MG TABLET (FOR DETOX USE ONLY) PO ONE (22:45)
[2019-05-27] MEDS: guaiFENesin 200 MG/10 ML 10 ML UNIT-DOSE CUPS PO SCH (23:12)
[2019-05-27] MEDS: THIAMINE HCL 100 MG TABLET (FP) PO SCH (23:15)
[2019-05-27] MEDS: TOLNAFTATE 1% CREAM 15 GM TUBE TP SCH (23:21)
[2019-05-28] MEDS: guaiFENesin 200 MG/10 ML 10 ML UNIT-DOSE CUPS PO SCH ×4 (06:15→22:41)
[2019-05-28 09:30] LABS: HEMATOCRIT 34.4 % (35.4-49); HEMOGLOBIN 11.3 GM/dL (11.7-16.9); MCH 32.7 pg (25.7-33.7); MCHC 32.9 g/dl (32.0-35.9); MEAN CELL VOLUME 99.1 fl (80-96); MEAN PLT VOLUME 8.6 fl (7.5-11.1); PLATELET COUNT 238 K/MM3 (134-434); RBC 3.47 M/mm3 (4.00-5.60); RDW 13.2 % (11.9-15.9); WHITE BLOOD COUNT 3.8 K/mm3 (4.0-10.0)
[2019-05-28] MEDS ORDERED: METHADONE HCL 10 MG TABLET (FOR DETOX USE ONLY) ONE (09:52)
[2019-05-28] MEDS ORDERED: METHADONE HCL 5 MG TABLET (FOR DETOX USE ONLY) ONE (09:52)
[2019-05-28] MEDS ORDERED: METHADONE (DETOX) 20 MG, METHADONE (DETOX) 5 MG PO ONE (10:00)
[2019-05-28] MEDS: PRENATAL VITAMINS W/ FOLIC ACID TABLET (FP) PO SCH (10:11)
[2019-05-28] MEDS: NICOTINE 21 MG/24 HOURS TOPICAL PATCH TD SCH (10:12)
[2019-05-28] MEDS: TOLNAFTATE 1% CREAM 15 GM TUBE TP SCH ×2 (10:16→22:34)
[2019-05-28 10:17] LABS: ALBUMIN 2.1 g/dl (3.4-5.0); BILIRUBIN,TOTAL 0.1 mg/dL (0.2-1); BLOOD UREA NITROGEN 8.2 mg/dL (7-18); CALCIUM 8.1 mg/dL (8.5-10.1); CREATININE 0.9 mg/dL (0.55-1.3); TOT PROT 6.4 g/dl (6.4-8.2)
--- NOTE | 2019-05-28 10:49 | PN ---
S COWS - Scale Resting Pulse: 1= [place] 81-100 Sweatin= Beads of Sweat on Face Restless Observation: 1= Difficult to Sit Still Pupil Size: 0= Normal to Room Light Bone or Joint Aches: 0= None Runny Nose/ Eye Tearin= Nasal Congestion GI Upset > 30mins: 0= None Tremor Observation of Outstretched Hands: 2= Slight Tremor Visible Yawning Observation: 1= 1-2x During Session Anxiety or Irritability: 2=Irritable/Anxious Goose Flesh Skin: 0=Smooth Skin COWS Score: 11 [facility] Progress Note (SOAP) Subjective: c/o sweats, chills, anxiety, and shakes. Objective: 05/28/19 10:49 Vital Signs - 24 hr 05/27/19 05/28/19 05/28/19 15:36 00:53 03:30 Temperature 98.6 F Pulse Rate 76 Respiratory 18 18 18 Rate Blood Pressure 153/97 05/28/19 05/28/19 06:15 09:19 Temperature 98.9 F 98.2 F Pulse Rate 79 84 Respiratory 16 18 Rate Blood Pressure 137/83 154/93 Laboratory Last Values WBC 3.8 K/mm3 (4.0-10.0) L 05/28/19 07:40 RBC 3.47 M/mm3 (4.00-5.60) L 05/28/19 07:40 Hgb 11.3 GM/dL (11.7-16.9) L 05/28/19 07:40 Hct 34.4 % (35.4-49) L 05/28/19 07:40 MCV 99.1 fl (80-96) H 05/28/19 07:40 MCH 32.7 pg (25.7-33.7) 05/28/19 07:40 MCHC 32.9 g/dl (32.0-35.9) 05/28/19 07:40 RDW 13.2 % (11.9-15.9) 05/28/19 07:40 Plt Count 238 K/MM3 (134-434) 05/28/19 07:40 MPV 8.6 fl (7.5-11.1) 05/28/19 07:40 Sodium 137 mmol/L (136-145) 05/28/19 07:40 Potassium 4.0 mmol/L (3.5-5.1) 05/28/19 07:40 Chloride 103 mmol/L (98-107) 05/28/19 07:40 Carbon Dioxide 31 mmol/L (21-32) 05/28/19 07:40 Anion Gap 4 MMOL/L (8-16) L 05/28/19 07:40 BUN 8.2 mg/dL (7-18) 05/28/19 07:40 Creatinine 0.9 mg/dL (0.55-1.3) 05/28/19 07:40 Est GFR (CKD-EPI)AfAm 111.05 05/28/19 07:40 Est GFR (CKD-EPI)NonAf 95.81 05/28/19 07:40 Calcium 8.1 mg/dL (8.5-10.1) L 05/28/19 07:40 Total Bilirubin 0.1 mg/dL (0.2-1) L 05/28/19 07:40 AST 33 U/L (15-37) 05/28/19 07:40 ALT 44 U/L (13-61) 05/28/19 07:40 Alkaline Phosphatase 110 U/L (45-117) 05/28/19 07:40 Total Protein 6.4 g/dl (6.4-8.2) 05/28/19 07:40 Albumin 2.1 g/dl (3.4-5.0) L 05/28/19 07:40 Labs noted. Assessment: 05/28/19 10:50 AOX3, in no respiratory distress. Full ROM, ambulating in the unit. Withdrawal symptoms. Plan: continue detox.
--- NOTE | 2019-05-28 14:36 | EKG ---
Test Reason : Blood Pressure : / mmHG Vent. Rate : 081 BPM Atrial Rate : 081 BPM P-R Int : 118 ms QRS Dur : 080 ms QT Int : 382 ms P-R-T Axes : 081 076 081 degrees QTc Int : 443 ms NORMAL SINUS RHYTHM MINIMAL VOLTAGE CRITERIA FOR LVH, MAY BE NORMAL VARIANT BORDERLINE ECG WHEN COMPARED WITH ECG OF 26-APR-2018 15:23, NO SIGNIFICANT CHANGE WAS FOUND Confirmed by CATARINO LEMUS MD ([id number]) on 05/28/2019 2:35:41 PM Referred By: Confirmed By:CATARINO LEMUS MD
[2019-05-28] MEDS: metFORMIN HCL 500 MG TABLET (FP) PO SCH (17:32)
[2019-05-28] MEDS: INSULIN SLIDING SCALE (NOVOLOG) 1 VIAL SQ SCH ×2 (19:32→22:40)
[2019-05-28] MEDS: MELATONIN 5 MG TABLETS PO PRN (22:41)
[2019-05-28] MEDS: THIAMINE HCL 100 MG TABLET (FP) PO SCH (22:42)
[2019-05-29] MEDS: guaiFENesin 200 MG/10 ML 10 ML UNIT-DOSE CUPS PO SCH ×3 (05:40→16:34)
[2019-05-29] MEDS: metFORMIN HCL 500 MG TABLET (FP) PO SCH ×2 (06:16→17:02)
[2019-05-29] MEDS: INSULIN SLIDING SCALE (NOVOLOG) 1 VIAL SQ SCH ×4 (08:01→22:00)
[2019-05-29] MEDS ORDERED: METHADONE HCL 10 MG TABLET (FOR DETOX USE ONLY) PO ONE (10:00)
--- NOTE | 2019-05-29 10:27 | PN ---
BHS COWS - Scale Resting Pulse: 0= [place] 80 or Below Sweatin= Chills/Flushing Restless Observation: 0= Sits Still Pupil Size: 1= Pupils >than Normal Bone or Joint Aches: 1= Mild Discomfort Runny Nose/ Eye Tearin= Runny Nose/Eyes GI Upset > 30mins: 1= Stomach Cramp Tremor Observation of Outstretched Hands: 1= Tremor [place], Not Seen Yawning Observation: 1= 1-2x During Session Anxiety or Irritability: 1=Feels Anxious/Irritable Goose Flesh Skin: 0=Smooth Skin COWS Score: 9 BHS Progress Note (SOAP) Subjective: 54 years old male admitted on 05/27/19 for opiate withdrawal sx management treating with methadone detox regimen received suboxone 8-2mg sl tid 30 days supply on 05/11/19 negative suboxon urine tox patient tolerates methadone detox regimen well ate breakfast resting on bed long history of insulin dependent diabetes Objective: 05/29/19 10:32 Vital Signs Temperature 97.0 F L 05/29/19 09:11 Pulse Rate 76 05/29/19 09:11 Respiratory Rate 18 05/29/19 09:11 Blood Pressure 134/94 05/29/19 09:11 O2 Sat by Pulse Oximetry (%) Laboratory Last Values WBC 3.8 K/mm3 (4.0-10.0) L 05/28/19 07:40 RBC 3.47 M/mm3 (4.00-5.60) L 05/28/19 07:40 Hgb 11.3 GM/dL (11.7-16.9) L 05/28/19 07:40 Hct 34.4 % (35.4-49) L 05/28/19 07:40 MCV 99.1 fl (80-96) H 05/28/19 07:40 MCH 32.7 pg (25.7-33.7) 05/28/19 07:40 MCHC 32.9 g/dl (32.0-35.9) 05/28/19 07:40 RDW 13.2 % (11.9-15.9) 05/28/19 07:40 Plt Count 238 K/MM3 (134-434) 05/28/19 07:40 MPV 8.6 fl (7.5-11.1) 05/28/19 07:40 Sodium 137 mmol/L (136-145) 05/28/19 07:40 Potassium 4.0 mmol/L (3.5-5.1) 05/28/19 07:40 Chloride 103 mmol/L (98-107) 05/28/19 07:40 Carbon Dioxide 31 mmol/L (21-32) 05/28/19 07:40 Anion Gap 4 MMOL/L (8-16) L 05/28/19 07:40 BUN 8.2 mg/dL (7-18) 05/28/19 07:40 Creatinine 0.9 mg/dL (0.55-1.3) 05/28/19 07:40 Est GFR (CKD-EPI)AfAm 111.05 05/28/19 07:40 Est GFR (CKD-EPI)NonAf 95.81 05/28/19 07:40 POC Glucometer 464 UNITS (80-120) 05/29/19 05:39 Random Glucose 422 mg/dL (74-106) H* 05/28/19 07:40 Calcium 8.1 mg/dL (8.5-10.1) L 05/28/19 07:40 Total Bilirubin 0.1 mg/dL (0.2-1) L 05/28/19 07:40 AST 33 U/L (15-37) 05/28/19 07:40 ALT 44 U/L (13-61) 05/28/19 07:40 Alkaline Phosphatase 110 U/L (45-117) 05/28/19 07:40 Total Protein 6.4 g/dl (6.4-8.2) 05/28/19 07:40 Albumin 2.1 g/dl (3.4-5.0) L 05/28/19 07:40 RPR Titer Nonreactive (NONREACTIVE) 05/28/19 07:40 HIV 1&2 Antibody Screen Negative 05/28/19 07:40 HIV P24 Antigen Negative 05/28/19 07:40 lab noted 05/29/19 10:33 bp elevation begin lisinopril 5 mg po hs Assessment: 05/29/19 10:33 opiate withdrawal Plan: methadone regimen
[2019-05-29] MEDS: NICOTINE 21 MG/24 HOURS TOPICAL PATCH TD SCH (10:33)
[2019-05-29] MEDS: PRENATAL VITAMINS W/ FOLIC ACID TABLET (FP) PO SCH (10:33)
[2019-05-29] MEDS: TOLNAFTATE 1% CREAM 15 GM TUBE TP SCH ×2 (10:35→22:53)
--- NOTE | 2019-05-29 17:02 | PN ---
S Progress Note Note: bgm 434,change diet to no added salt,no concentrated sweet,d/d ensure,glucerna 1 can po bid, bgm monitoring with injulin coverage
[2019-05-29] MEDS: THIAMINE HCL 100 MG TABLET (FP) PO SCH (22:52)
[2019-05-29] MEDS: LISINOPRIL 5 MG TABLET (FP) PO SCH (22:52)
[2019-05-30] MEDS: INSULIN SLIDING SCALE (NOVOLOG) 1 VIAL SQ SCH ×4 (06:01→21:25)
[2019-05-30] MEDS: metFORMIN HCL 500 MG TABLET (FP) PO SCH ×2 (06:01→17:03)
[2019-05-30] MEDS ORDERED: METHADONE (DETOX) 10 MG, METHADONE (DETOX) 5 MG PO ONE (10:00)
[2019-05-30] MEDS: TOLNAFTATE 1% CREAM 15 GM TUBE TP SCH ×2 (10:24→21:22)
[2019-05-30] MEDS: PRENATAL VITAMINS W/ FOLIC ACID TABLET (FP) PO SCH (10:24)
[2019-05-30] MEDS ORDERED: METHADONE HCL 10 MG TABLET (FOR DETOX USE ONLY) ONE (10:25)
[2019-05-30] MEDS: NICOTINE 21 MG/24 HOURS TOPICAL PATCH TD SCH (10:25)
[2019-05-30] MEDS ORDERED: METHADONE HCL 5 MG TABLET (FOR DETOX USE ONLY) ONE (10:25)
--- NOTE | 2019-05-30 11:47 | PN ---
BHS COWS - Scale Resting Pulse: 1= [place] 81-100 Sweatin= Chills/Flushing Restless Observation: 0= Sits Still Pupil Size: 1= Pupils >than Normal Bone or Joint Aches: 1= Mild Discomfort Runny Nose/ Eye Tearin= None GI Upset > 30mins: 0= None Tremor Observation of Outstretched Hands: 1= Tremor [place], Not Seen Yawning Observation: 0= None Anxiety or Irritability: 1=Feels Anxious/Irritable Goose Flesh Skin: 0=Smooth Skin COWS Score: 6 BHS Progress Note (SOAP) Subjective: 54 years old male admitted on 05/27/19 for opiate withdrawal sx management treating with methadone detox regimen feeling ok today ate breakfast discuss aftercare with staff possible [facility] discuss the importance of no concentrated sugar and avoid [facility] ensure carbohydrate content Objective: 05/30/19 11:49 Vital Signs Temperature 98.9 F 05/30/19 09:23 Pulse Rate 91 H 05/30/19 09:23 Respiratory Rate 20 05/30/19 09:23 Blood Pressure 129/84 05/30/19 09:23 O2 Sat by Pulse Oximetry (%) Laboratory Last Values WBC 3.8 K/mm3 (4.0-10.0) L 05/28/19 07:40 RBC 3.47 M/mm3 (4.00-5.60) L 05/28/19 07:40 Hgb 11.3 GM/dL (11.7-16.9) L 05/28/19 07:40 Hct 34.4 % (35.4-49) L 05/28/19 07:40 MCV 99.1 fl (80-96) H 05/28/19 07:40 MCH 32.7 pg (25.7-33.7) 05/28/19 07:40 MCHC 32.9 g/dl (32.0-35.9) 05/28/19 07:40 RDW 13.2 % (11.9-15.9) 05/28/19 07:40 Plt Count 238 K/MM3 (134-434) 05/28/19 07:40 MPV 8.6 fl (7.5-11.1) 05/28/19 07:40 Sodium 137 mmol/L (136-145) 05/28/19 07:40 Potassium 4.0 mmol/L (3.5-5.1) 05/28/19 07:40 Chloride 103 mmol/L (98-107) 05/28/19 07:40 Carbon Dioxide 31 mmol/L (21-32) 05/28/19 07:40 Anion Gap 4 MMOL/L (8-16) L 05/28/19 07:40 BUN 8.2 mg/dL (7-18) 05/28/19 07:40 Creatinine 0.9 mg/dL (0.55-1.3) 05/28/19 07:40 Est GFR (CKD-EPI)AfAm 111.05 05/28/19 07:40 Est GFR (CKD-EPI)NonAf 95.81 05/28/19 07:40 POC Glucometer 363 UNITS (80-120) 05/30/19 11:37 Random Glucose 422 mg/dL (74-106) H* 05/28/19 07:40 Hemoglobin A1c % 14.9 % (4.2-6.3) H 05/29/19 05:40 Calcium 8.1 mg/dL (8.5-10.1) L 05/28/19 07:40 Total Bilirubin 0.1 mg/dL (0.2-1) L 05/28/19 07:40 AST 33 U/L (15-37) 05/28/19 07:40 ALT 44 U/L (13-61) 05/28/19 07:40 Alkaline Phosphatase 110 U/L (45-117) 05/28/19 07:40 Total Protein 6.4 g/dl (6.4-8.2) 05/28/19 07:40 Albumin 2.1 g/dl (3.4-5.0) L 05/28/19 07:40 RPR Titer Nonreactive (NONREACTIVE) 05/28/19 07:40 HIV 1&2 Antibody Screen Negative 05/28/19 07:40 HIV P24 Antigen Negative 05/28/19 07:40 long history of diabetes none compliance with no concentrated sugar diet lisinopril 5mg po hs appears to manage bp at this time Assessment: 05/30/19 11:51 opiate withdrawal sx Plan: methadone regimen
[2019-05-30] MEDS: METHOCARBAMOL 500 MG TABLET PO PRN (13:42)
[2019-05-30] MEDS: guaiFENesin 600 MG TABLET.ER (FP) PO SCH ×2 (15:24→21:22)
[2019-05-30 17:58] LABS: EPI CELLS 0.7 /HPF (0-5/HPF); HYALINE CASTS 3 /lpf (0-8); URINE APPEARANCE CLEAR; URINE BACTERIA 2.7 /hpf (NEGATIVE); URINE BILIRUBIN NEGATIVE (NEGATIVE); URINE COLOR YELLOW; URINE GLUCOSE (UA) 3+ (NEGATIVE); URINE KETONE NEGATIVE (NEGATIVE); URINE LEUK ESTERASE NEGATIVE (NEGATIVE); URINE NITRITE NEGATIVE (NEGATIVE); URINE PROTEIN 2+ (NEGATIVE); URINE RBC 2 /hpf (0-4); URINE UROBILINOGEN 0.2 mg/dL (0.2-1.0); URINE WBC 1 /hpf (0-5)
[2019-05-30 20:50] LABS: URINE CRYSTALS MANY /hpf
[2019-05-30] MEDS: THIAMINE HCL 100 MG TABLET (FP) PO SCH (21:22)
[2019-05-30] MEDS: LISINOPRIL 5 MG TABLET (FP) PO SCH (21:22)
[2019-05-30] MEDS: MELATONIN 5 MG TABLETS PO PRN (21:22)
[2019-05-31] MEDS: metFORMIN HCL 500 MG TABLET (FP) PO SCH ×2 (06:05→16:56)
[2019-05-31] MEDS: INSULIN SLIDING SCALE (NOVOLOG) 1 VIAL SQ SCH ×4 (06:07→21:51)
[2019-05-31] MEDS ORDERED: METHADONE HCL 10 MG TABLET (FOR DETOX USE ONLY) PO ONE (10:00)
[2019-05-31] MEDS: TOLNAFTATE 1% CREAM 15 GM TUBE TP SCH ×2 (10:13→22:46)
[2019-05-31] MEDS: guaiFENesin 600 MG TABLET.ER (FP) PO SCH ×2 (10:13→21:49)
[2019-05-31] MEDS: PRENATAL VITAMINS W/ FOLIC ACID TABLET (FP) PO SCH (10:13)
[2019-05-31] MEDS: NICOTINE 21 MG/24 HOURS TOPICAL PATCH TD SCH (10:14)
--- NOTE | 2019-05-31 10:23 | PN ---
BHS COWS - Scale Resting Pulse: 0= [place] 80 or Below Sweatin= No chills or Flushing Restless Observation: 0= Sits Still Pupil Size: 0= Normal to Room Light Bone or Joint Aches: 1= Mild Discomfort Runny Nose/ Eye Tearin= None GI Upset > 30mins: 0= None Tremor Observation of Outstretched Hands: 0= None Yawning Observation: 0= None Anxiety or Irritability: 2=Irritable/Anxious Goose Flesh Skin: 0=Smooth Skin COWS Score: 3 BHS Progress Note (SOAP) Subjective: c/o mild muscle aches, anxiety, and sweats. Objective: 05/31/19 10:21 Vital Signs 05/31/19 05/31/19 05/31/19 03:30 06:15 09:04 Temperature 97.1 F L 98.1 F Pulse Rate 87 83 Respiratory 18 18 17 Rate Blood Pressure 110/75 113/78 Assessment: 05/31/19 10:21 AOX3, in no acute respiratory distress. Full ROM, ambulating in the unit. Mild Withdrawal symptoms. For d/c tomorrow. Plan: continue detox. D/C in AM
--- NOTE | 2019-05-31 12:42 | PN ---
IDALIA Progress Note Note: reports taking insulin not taking metformin content writer called patient preferred pharmacy at [phone] last insulin filled on 08/2018 last medication brass pickler 01/2019 hgba1c 14 health teaching on risks of glucose elevation
[2019-05-31] MEDS: MELATONIN 5 MG TABLETS PO PRN (21:49)
[2019-05-31] MEDS: LISINOPRIL 5 MG TABLET (FP) PO SCH (21:49)
[2019-05-31] MEDS: THIAMINE HCL 100 MG TABLET (FP) PO SCH (21:49)
[2019-06-01] MEDS ORDERED: METHADONE HCL 5 MG TABLET (FOR DETOX USE ONLY) PO ONE (06:00)
[2019-06-01] MEDS: metFORMIN HCL 500 MG TABLET (FP) PO SCH (06:04)
[2019-06-01] MEDS: INSULIN SLIDING SCALE (NOVOLOG) 1 VIAL SQ SCH ×2 (06:05→11:56)
[2019-06-01] MEDS: guaiFENesin 600 MG TABLET.ER (FP) PO SCH (10:18)
[2019-06-01] MEDS: PRENATAL VITAMINS W/ FOLIC ACID TABLET (FP) PO SCH (10:18)
[2019-06-01] MEDS: TOLNAFTATE 1% CREAM 15 GM TUBE TP SCH (10:18)
[2019-06-01] MEDS: METHOCARBAMOL 500 MG TABLET PO PRN (10:19)
[2019-06-01] MEDS: NICOTINE 21 MG/24 HOURS TOPICAL PATCH TD SCH (10:19)
[2019-06-01 13:17] VITALS: BP 125/81; PULSE 96; TEMP 98.4
--- NOTE | 2019-06-01 14:37 | DS ---
[facility] Detox Discharge Summary Admission Date: 05/27/19 Discharge Date: 06/01/19 - History Present History: Opioid Dependence Additional Comments: 54 years old male admitted on 05/27/19 for opiate withdrawal sx management treating with methadone detox regimen patient tolerated well alert oriented x 3 cardiac s1s2 regular rate rhythm respiratory clear lung bilaterally on auscultation extremities full range of motion Pertinent Past History: patient refuses to go to [facility] insists to go to [facility] "I am in the program" transportation arranged by the counselor - Physical Exam Results Vital Signs: Vital Signs Temperature 98.4 F 06/01/19 13:16 Pulse Rate 96 H 06/01/19 13:16 Respiratory Rate 18 06/01/19 13:16 Blood Pressure 125/81 06/01/19 13:16 O2 Sat by Pulse Oximetry (%) Pertinent Admission Physical Exam Findings: opiate withdrawal Laboratory Last Values WBC 3.8 K/mm3 (4.0-10.0) L 05/28/19 07:40 RBC 3.47 M/mm3 (4.00-5.60) L 05/28/19 07:40 Hgb 11.3 GM/dL (11.7-16.9) L 05/28/19 07:40 Hct 34.4 % (35.4-49) L 05/28/19 07:40 MCV 99.1 fl (80-96) H 05/28/19 07:40 MCH 32.7 pg (25.7-33.7) 05/28/19 07:40 MCHC 32.9 g/dl (32.0-35.9) 05/28/19 07:40 RDW 13.2 % (11.9-15.9) 05/28/19 07:40 Plt Count 238 K/MM3 (134-434) 05/28/19 07:40 MPV 8.6 fl (7.5-11.1) 05/28/19 07:40 Sodium 137 mmol/L (136-145) 05/28/19 07:40 Potassium 4.0 mmol/L (3.5-5.1) 05/28/19 07:40 Chloride 103 mmol/L (98-107) 05/28/19 07:40 Carbon Dioxide 31 mmol/L (21-32) 05/28/19 07:40 Anion Gap 4 MMOL/L (8-16) L 05/28/19 07:40 BUN 8.2 mg/dL (7-18) 05/28/19 07:40 Creatinine 0.9 mg/dL (0.55-1.3) 05/28/19 07:40 Est GFR (CKD-EPI)AfAm 111.05 05/28/19 07:40 Est GFR (CKD-EPI)NonAf 95.81 05/28/19 07:40 POC Glucometer 310 UNITS (80-120) 06/01/19 11:53 Random Glucose 422 mg/dL (74-106) H* 05/28/19 07:40 Hemoglobin A1c % 14.9 % (4.2-6.3) H 05/29/19 05:40 Calcium 8.1 mg/dL (8.5-10.1) L 05/28/19 07:40 Total Bilirubin 0.1 mg/dL (0.2-1) L 05/28/19 07:40 AST 33 U/L (15-37) 05/28/19 07:40 ALT 44 U/L (13-61) 05/28/19 07:40 Alkaline Phosphatase 110 U/L (45-117) 05/28/19 07:40 Total Protein 6.4 g/dl (6.4-8.2) 05/28/19 07:40 Albumin 2.1 g/dl (3.4-5.0) L 05/28/19 07:40 Urine Color Yellow 05/30/19 10:30 Urine Appearance Clear 05/30/19 10:30 Urine pH 5.0 (5.0-8.0) 05/30/19 10:30 Ur Specific [place] 1.032 (1.010-1.035) 05/30/19 10:30 Urine Protein 2+ (NEGATIVE) H 05/30/19 10:30 Urine Glucose (UA) 3+ (NEGATIVE) H 05/30/19 10:30 Urine Ketones Negative (NEGATIVE) 05/30/19 10:30 Urine Blood Negative (NEGATIVE) 05/30/19 10:30 Urine Nitrite Negative (NEGATIVE) 05/30/19 10:30 Urine Bilirubin Negative (NEGATIVE) 05/30/19 10:30 Urine Urobilinogen 0.2 mg/dL (0.2-1.0) 05/30/19 10:30 Ur Leukocyte Esterase Negative (NEGATIVE) 05/30/19 10:30 Urine WBC (Auto) 1 /hpf (0-5) 05/30/19 10:30 Urine RBC (Auto) 2 /hpf (0-4) 05/30/19 10:30 Urine Casts (Auto) 3 /lpf (0-8) 05/30/19 10:30 U Epithel Cells (Auto) 0.7 /HPF (0-5/HPF) 05/30/19 10:30 Urine Crystals (Auto) Many /hpf 05/30/19 10:30 Urine Bacteria (Auto) 2.7 /hpf (NEGATIVE) 05/30/19 10:30 RPR Titer Nonreactive (NONREACTIVE) 05/28/19 07:40 HIV 1&2 Antibody Screen Negative 05/28/19 07:40 HIV P24 Antigen Negative 05/28/19 07:40 lab noted strong recommend the patient follow up with primary care provider / endocranologist health teaching on risks of hgba1c of 14 - Treatment Hospital Course: Detox Protocol Followed, Detoxed Safely, Responded well, Discharged Condition Good, Rehab Referral Accepted Patient has Accepted a Rehab Referral to: retun to [facility] - Medication Discharge Medications: Ambulatory Orders Naloxone HCl [Narcan] 4 mg NS ASDIR PRN #1 spray 05/29/19 - Diagnosis (1) Opioid dependence with withdrawal Status: Acute (2) Weight loss Status: Acute (3) HTN (hypertension) Status: Chronic Qualifiers: Hypertension type: essential hypertension Qualified Code(s): I10 - Essential (primary) hypertension (4) IDDM (insulin dependent diabetes mellitus) Status: Chronic (5) Nicotine dependence Status: Acute Qualifiers: Nicotine product type: cigarettes Substance use status: in withdrawal Qualified Code(s): F17.213 - Nicotine dependence, cigarettes, with withdrawal (6) Weight loss Status: Chronic (7) Substance induced mood disorder Status: Suspected - AMA Did Patient Leave Against Medical Advice: No COWS (PN) - Opiate Withdrawal Resting Pulse: 1= [place] 81-100 Sweatin= No chills or Flushing Restless Observation: 0= Sits Still Pupil Size: 0= Normal to Room Light Bone or Joint Aches: 0= None Runny Nose/ Eye Tearin= None GI Upset > 30mins: 0= None Tremor Observation of Outstretched Hands: 0= None Yawning Observation: 0= None Anxiety or Irritability: 2=Irritable/Anxious Goose Flesh Skin: 0=Smooth Skin COWS Score: 3
== END 2019-06-01 13:38 | disposition home or self-care (01) | DRG 773 ==
LOC: YASAS 14:59 → Y3N 22:28
PROVIDERS: ADMIT Allergy & Immunology; ATTEND Allergy & Immunology
PROC: HZ2ZZZZ Detoxification Services for Substance Abuse Treatment (ICD-10-PCS; principal; 2019-05-27)
DX: F11.23 Opioid dependence with withdrawal (principal); F14.20 Cocaine dependence, uncomplicated; F17.213 Nicotine dependence, cigarettes, with withdrawal; F19.24 Other psychoactive substance dependence with psychoactive substance-induced mood disorder; I10 Essential (primary) hypertension; E11.9 Type 2 diabetes mellitus without complications; R63.4 Abnormal weight loss; R01.1 Cardiac murmur, unspecified; R63.8 Other symptoms and signs concerning food and fluid intake; L98.8 Other specified disorders of the skin and subcutaneous tissue; B35.3 Tinea pedis; R05 Cough; Z79.4 Long term (current) use of insulin; Z91.013 Allergy to seafood; Z56.0 Unemployment, unspecified
CPT/HCPCS: 36415; 80053; 81003; 82962; 83036; 85027; 86593; 87389; 93005; 93010

== ENCOUNTER 2019-07-16 10:18 | Inpatient (IN) | payer OTHER ==
[2019-07-16 11:30] VITALS: BMI 16.9
--- NOTE | 2019-07-16 14:31 | HP ---
COWS - Scale Resting Pulse: 0= [place] 80 or Below Sweatin= Chills/Flushing Restless Observation: 1= Difficult to Sit Still Pupil Size: 0= Normal to Room Light Bone or Joint Aches: 1= Mild Discomfort Runny Nose/ Eye Tearin= Nasal Congestion GI Upset > 30mins: 1= Stomach Cramp Tremor Observation: 2= Slight Tremor Visible Yawning Observation: 1= 1-2x During Session Anxiety or Irritability: 1=Feels Anxious/Irritable Goose Flesh Skin: 0=Smooth Skin COWS Score: 9 CIWA Score Nausea/Vomitin Muscle Tremors: 3 Agitation: 1-Slight > Activity Paroxysmal Sweats: 1-Minimal Palms Moist Orientation: 1-Uncertain about Date Tacttile Disturbances: 0-None Auditory Disturbances: 0-None Visual Disturbances: 0-None Headache: 1-Very Mild - Admission Criteria OASAS Guidelines: Admission for Medically Managed Detox: Requires at least one of the followin. CIWA greater than 12 2. Seizures within the past 24 hours 3. Delirium tremens within the past 24 hours 4. Hallucinations within the past 24 hours 5. Acute intervention needed for co occurring medical disorder 6. Acute intervention needed for co occurring psychiatric disorder 7. Severe withdrawal that cannot be handled at a lower level of care (continued vomiting, continued diarrhea, abnormal vital signs) requiring intravenous medication and/or fluids 8. Patient presents the following: CIWA greater than 12 Admission Criteria Met: Admission criteria met Admitting History and Physical - Admission History Source: Patient Limitations to Obtaining History: No Limitations - Past Medical History Psych: Yes: Addictions, Bipolar, Depression Endocrine: Yes: Diabetes Mellitus - Smoking History Smoking history: Current every day smoker Have you smoked in the past 12 months: Yes Aproximately how many cigarettes per day: 20 - Alcohol/Substance Use Hx Alcohol Use: Yes History of Substance Use: reports: Cocaine, Heroin - Social History Usual Living Arrangement: Yes: Alone, Other (lives on street) ADL: Support Services (on disability) Admission [facility] Allergies/Adverse Reactions: Allergies Allergy/AdvReac Type Severity Reaction Status Date / Time Fish Containing Products Allergy Intermediate Hives Verified 07/16/19 11:25 No Known Drug Allergies Allergy Verified 05/31/19 16:40 History of Present Illness: 54 yo gentleman here for detox from opiates and alcohol, also using cocaine. THis is one of multiple admissions for treatment. History of overdose and black outs, denies seizure. Noted was on suboxone but states he stopped going and relapsed. States he was on methadone program 'years ago' but stopped going. Patient is homeless, states he lives on the streets, is on disability for a shoulder injury. [place]: Others' Prescriptions Patient Name: Jamie Kiser Date: 1965 Address: [address] [place] [address] Sex: Male Rx Written Rx Dispensed Drug Quantity Days Supply Prescriber Name 05/11/2019 05/13/2019 buprenorphine-naloxone 8-2 mg sl film 90 30 Radha Shabazz MD 04/18/2019 04/19/2019 buprenorphine-naloxone 8-2 mg sl film 90 30 Radha Shabazz MD Patient Name: Jamie Kiser Date: 1965 Address: [address] [place] [address] Sex: Male Rx Written Rx Dispensed Drug Quantity Days Supply Prescriber Name 04/06/2019 04/07/2019 buprenorphine-naloxone 8-2 mg sl film 14 7 Adilene Morse 11/25/2018 12/20/2018 buprenorphine-naloxone 8-2 mg sl film 30 15 Cody Soares MD 11/25/2018 11/25/2018 buprenorphine-naloxone 8-2 mg sl film 30 15 Cody Soares MD 11/01/2018 11/02/2018 buprenorphine-naloxone 8-2 mg sl film 30 15 Cody Soares MD 10/25/2018 10/25/2018 buprenorphine-naloxone 8-2 mg sl film 14 7 Cody Soares MD Patient Name: Jamie Kiser Date: 1965 Address: [address] [place] [id number] Sex: Male Rx Written Rx Dispensed Drug Quantity Days Supply Prescriber Name 03/03/2019 03/03/2019 buprenorphine-naloxone 8-2 mg sl film 60 30 Lolly Hernandez 02/21/2019 02/21/2019 buprenorphine-naloxone 8-2 mg sl film 14 7 Chely Grier NP 02/18/2019 02/18/2019 buprenorphine-naloxone 4-1 mg sl film 7 7 Chely Grier NP Patient Name: Jamie Kiser Date: 1965 Address: [address] [place] [address] Sex: Male Rx Written Rx Dispensed Drug Quantity Days Supply Prescriber Name 02/04/2019 02/08/2019 buprenorphine-naloxone 8-2 mg sl film 14 14 Astrid Saez NP Patient Name: Jamie Kiser Date: 1965 Address: [address] [place] [id number] Sex: Male Rx Written Rx Dispensed Drug Quantity Days Supply Prescriber Name 07/22/2018 07/22/2018 zubsolv 1.4-0.36 mg tablet sl 22 22 LaksLuis M MD 07/20/2018 07/20/2018 zubsolv 0.7-0.18 mg tablet sl 10 5 Laks, Luis M BOTELLO * - Drugs marked with an asterisk are compound drugs. If the compound drug is made up of more than Exam Limitations: No Limitations - Ebola screening Have you traveled outside of the country in the last 21 days: No Have you had contact with anyone from an Ebola affected area: No Have you been sick,other than usual withdrawal symptoms: No Do you have a fever: No - Review of Systems Constitutional: Loss of Appetite, Malaise, Weakness EENT: reports: Nose Congestion Respiratory: reports: No Symptoms reported Cardiac: reports: No Symptoms Reported GI: reports: Nausea, Poor Appetite, Abdominal cramping : reports: Frequency Musculoskeletal: reports: Joint Pain (left shoulder pain (chronic)), Muscle Pain Integumentary: reports: No Symptoms Reported Neuro: reports: Headache, Tremors Endocrine: reports: No Symptoms Reported Hematology: reports: No Symptoms Reported Psychiatric: reports: Judgement Intact, Mood/Affect Appropiate, Anxious Other Systems: Reviewed and Negative Patient History - Patient Medical History Hx Anemia: No Hx Asthma: No Hx Chronic Obstructive Pulmonary Disease (COPD): No Hx Cancer: No Hx Cardiac Disorders: No Hx Congestive Heart Failure: No Hx Hypertension: No Hx Hypercholesterolemia: No Hx Pacemaker: No HX Cerebrovascular Accident: No Hx Seizures: No Hx Dementia: No Hx Diabetes: Yes (WFA=283 - has not had insulin in several days) Hx Gastrointestinal Disorders: No Hx Liver Disease: No Hx Genitourinary Disorders: No Hx Sexually Transmitted Disorders: No Hx Renal Disease (ESRD): No Hx Thyroid Disease: No Hx Human Immunodeficiency Virus (HIV): No (last 04/21/18 negative) Hx Hepatitis C: No Hx Depression: Yes (hospitalized in past) Hx Suicide Attempt: Yes (doesn't remember when) Hx Bipolar Disorder: No Hx Schizophrenia: Yes (hx meds in past) Other Medical History: left shoulder pain (chronic) - Patient Surgical History Past Surgical History: Yes Hx Neurologic Surgery: No Hx Cataract Extraction: No Hx Cardiac Surgery: No Hx Lung Surgery: No Hx Breast Surgery: No Hx Breast Biopsy: No Hx Abdominal Surgery: No Hx Appendectomy: No Hx Cholecystectomy: No Hx Genitourinary Surgery: No Hx Orthopedic Surgery: Yes (L shoulder dislocation sx 30 yrs ago.) Anesthesia Reaction: No - PPD History Previous Implant?: Yes Documented Results: Negative w/proof Implanted On Prior [facility] Admission?: Yes Date: 05/29/19 Results: 0 mm PPD to be Administered?: No - Reproductive History Patient is a Female of Child Bearing Age (11 -55 yrs old): No (male) - Smoking Cessation Smoking history: Current every day smoker Have you smoked in the past 12 months: Yes Aproximately how many cigarettes per day: 20 Cigars Per Day: 0 Hx Chewing Tobacco Use: No Initiated information on smoking cessation: Yes 'Breaking Loose' booklet given: 07/16/19 (give on floor) - Substance & Tx. History Hx Alcohol Use: Yes Hx Substance Use: Yes Substance Use Type: Alcohol, Cocaine, Heroin Hx Substance Use Treatment: Yes (detox, rehab) - Substances abused Alcohol Substance route: Oral Frequency: Daily Amount used: 1 pint of liquor Age of first use: 10 Date of last use: 07/14/19 Heroin Substance route: Inhalation Frequency: Daily Amount used: 20 bags Age of first use: 13 Date of last use: 07/15/19 Cocaine Substance route: Smoking Frequency: Daily Amount used: $200/day Age of first use: 13 Date of last use: 07/15/19 Admission Physical Exam BHS - Vital Signs Vital Signs: Vital Signs - 24 hr 07/16/19 11:26 Temperature 97.3 F L Pulse Rate 62 Respiratory 18 Rate Blood Pressure 130/87 - Physical General Appearance: Yes: Appropriately Dressed, Moderate Distress, Thin, Tremorous, Anxious HEENTM: Yes: EOMI, Hearing grossly Normal, Normocephalic, Normal Voice, Pharynx Normal, Other Respiratory: Yes: Normal Breath Sounds, No Respiratory Distress Neck: Yes: No masses,lesions,Nodules Breast: Yes: Breast Exam Deferred Cardiology: Yes: Regular Rhythm, Regular Rate Abdominal: Yes: Flat, Soft Genitourinary: Yes: Frequency Back: Yes: Normal Inspection Musculoskeletal: Yes: Joint Stiffness (reduced ROM left shoulder), Other Extremities: Yes: Non-Tender, Tremors Neurological: Yes: Alert, Motor Strength 5/5, Normal Mood/Affect, Normal Response Integumentary: Yes: Normal Color, Warm Lymphatic: Yes: Within Normal Limits - Diagnostic (1) Opioid dependence with withdrawal Current Visit: Yes Status: Chronic (2) Alcohol dependence with withdrawal, uncomplicated Current Visit: Yes Status: Chronic (3) Cocaine dependence Current Visit: Yes Status: Chronic Qualifiers: Substance use status: uncomplicated Qualified Code(s): F14.20 - Cocaine dependence, uncomplicated (4) IDDM (insulin dependent diabetes mellitus) Current Visit: Yes Status: Chronic (5) Tinea pedis of both feet Current Visit: Yes Status: Chronic (6) Left shoulder pain Current Visit: Yes Status: Chronic Qualifiers: Chronicity: chronic Qualified Code(s): M25.512 - Pain in left shoulder; G89.29 - Other chronic pain (7) Nicotine dependence Current Visit: Yes Status: Acute Qualifiers: Nicotine product type: cigarettes Substance use status: in withdrawal Qualified Code(s): F17.213 - Nicotine dependence, cigarettes, with withdrawal Cleared for Admission [facility] - Detox or Rehab [facility] Level of Care: Medically Managed Detox Regimen/Protocol: Ativan, Methadone Breathalyzer - Breathalyzer Breathalyzer: 0 Urine Drug Screen - Test Device Lot number: [id number] Expiration date: 05/07/21 - Control Is test valid?: Yes - Results Drug screen NEGATIVE: No Urine drug screen results: ALBERT-Cocaine, MOP-Opiates Inpatient Rehab Admission - Rehab Decision to Admit Inpatient rehab admission?: No
[2019-07-16] MEDS ORDERED: BISMUTH SUBSALICYLATE 524 MG/30 ML UD PO PRN (15:01)
[2019-07-16] MEDS ORDERED: IBUPROFEN 400 MG TABLET (FP) PO PRN (15:01)
[2019-07-16] MEDS ORDERED: ACETAMINOPHEN 325 MG TABLET (FP) PO PRN ×2 (15:01)
[2019-07-16] MEDS ORDERED: MELATONIN 5 MG TABLETS PO PRN (15:01)
[2019-07-16] MEDS ORDERED: MAGNESIUM CITRATE 300 ML BOTTLE PO PRN (15:01)
[2019-07-16] MEDS ORDERED: METHADONE HCL 10 MG TABLET (FOR DETOX USE ONLY) PO ONE (15:01)
[2019-07-16] MEDS ORDERED: cloNIDine HCL 0.1 MG TABLET PO PRN (15:01)
[2019-07-16] MEDS ORDERED: LORazepam 1 MG TABLET PO PRN (15:01)
[2019-07-16] MEDS ORDERED: MAG HYDROX/AL HYDROX/SIMETH 30 ML UNIT-DOSE CUP PO PRN (15:01)
[2019-07-16] MEDS ORDERED: hydrOXYzine PAMOATE 25 MG CAPSULE (FP) PO PRN (15:01)
[2019-07-16] MEDS ORDERED: MENTHOL/PHENOL 1 EACH UD MM PRN (15:01)
[2019-07-16] MEDS ORDERED: MAGNESIUM HYDROX 2400MG/30ML ORAL SUSPENSION 30 ML CUP PO PRN (15:01)
[2019-07-16] MEDS ORDERED: METHOCARBAMOL 500 MG TABLET PO PRN (15:01)
[2019-07-16] MEDS ORDERED: INSULIN (NOVOLOG) ASPART 100 UNITS/ML 10ML VIAL SQ ONE (15:06)
[2019-07-16] MEDS ORDERED: LORazepam 2 MG TABLET PO ONE (16:30)
[2019-07-16] MEDS: NICOTINE 21 MG/24 HOURS TOPICAL PATCH TD SCH (17:28)
[2019-07-16] MEDS: LORazepam 2 MG TABLET PO SCH ×2 (17:54→22:45)
[2019-07-16] MEDS: INSULIN SLIDING SCALE (NOVOLOG) 1 VIAL SQ SCH ×2 (18:48→22:59)
[2019-07-16] MEDS: TOLNAFTATE 1% CREAM 15 GM TUBE TP SCH (22:44)
[2019-07-16] MEDS: THIAMINE HCL 100 MG TABLET (FP) PO SCH (22:45)
[2019-07-16] MEDS: INSULIN (LEVEMIR) 100 UNITS/ML UNITS SQ SCH (22:58)
[2019-07-17] MEDS: LORazepam 2 MG TABLET PO SCH ×4 (06:10→22:34)
[2019-07-17] MEDS: INSULIN SLIDING SCALE (NOVOLOG) 1 VIAL SQ SCH ×4 (06:17→23:10)
[2019-07-17] MEDS ORDERED: METHADONE HCL 5 MG TABLET (FOR DETOX USE ONLY) ONE (09:10)
[2019-07-17] MEDS ORDERED: METHADONE HCL 10 MG TABLET (FOR DETOX USE ONLY) ONE (09:10)
[2019-07-17] MEDS ORDERED: METHADONE (DETOX) 20 MG, METHADONE (DETOX) 5 MG PO ONE (10:00)
[2019-07-17 10:17] LABS: HEMATOCRIT 33.4 % (35.4-49); HEMOGLOBIN 11.2 GM/dL (11.7-16.9); MCH 33.5 pg (25.7-33.7); MCHC 33.5 g/dl (32.0-35.9); MEAN CELL VOLUME 99.8 fl (80-96); MEAN PLT VOLUME 8.2 fl (7.5-11.1); PLATELET COUNT 208 K/MM3 (134-434); RBC 3.34 M/mm3 (4.00-5.60); RDW 14.7 % (11.9-15.9); WHITE BLOOD COUNT 3.5 K/mm3 (4.0-10.0)
[2019-07-17 10:45] LABS: ALBUMIN 2.1 g/dl (3.4-5.0); BILIRUBIN,TOTAL 0.2 mg/dL (0.2-1); BLOOD UREA NITROGEN 15.6 mg/dL (7-18); CALCIUM 8.1 mg/dL (8.5-10.1); CREATININE 0.7 mg/dL (0.55-1.3); POTASSIUM 3.8 mmol/L (3.5-5.1); TOT PROT 6.1 g/dl (6.4-8.2)
[2019-07-17] MEDS: PRENATAL VITAMINS W/ FOLIC ACID TABLET (FP) PO SCH (14:07)
[2019-07-17] MEDS: NICOTINE 21 MG/24 HOURS TOPICAL PATCH TD SCH (14:07)
[2019-07-17] MEDS: TOLNAFTATE 1% CREAM 15 GM TUBE TP SCH ×2 (14:07→22:34)
--- NOTE | 2019-07-17 14:21 | EKG ---
Test Reason : Blood Pressure : / mmHG Vent. Rate : 063 BPM Atrial Rate : 063 BPM P-R Int : 118 ms QRS Dur : 086 ms QT Int : 450 ms P-R-T Axes : 084 080 083 degrees QTc Int : 460 ms NORMAL SINUS RHYTHM MINIMAL VOLTAGE CRITERIA FOR LVH, MAY BE NORMAL VARIANT BORDERLINE ECG Confirmed by MD MICHAEL, MENG ([id number]) on 07/17/2019 2:20:54 PM Referred By: Confirmed By:MENG RODRIGUEZ MD
[2019-07-17] MEDS ORDERED: cloNIDine HCL 0.1 MG TABLET PO PRN (15:58)
--- NOTE | 2019-07-17 16:02 | PN ---
[facility] CIWA - CIWA Score Nausea/Vomitin-Mild Nausea/No Vomiting Muscle Tremors: 3 Anxiety: 3 Agitation: 1-Slight > Activity Paroxysmal Sweats: 2 Orientation: 2-Disoriented Date<2 days Tacttile Disturbances: 0-None Auditory Disturbances: 0-None Visual Disturbances: 0-None Headache: 0-None Present CIWA-Ar Total Score: 12 S COWS - Scale Resting Pulse: 0= AK 80 or Below Sweatin= Chills/Flushing Restless Observation: 0= Sits Still Pupil Size: 1= Pupils >than Normal Bone or Joint Aches: 0= None Runny Nose/ Eye Tearin= None GI Upset > 30mins: 2= Nausea/Diarrhea Tremor Observation of Outstretched Hands: 2= Slight Tremor Visible Yawning Observation: 0= None Anxiety or Irritability: 2=Irritable/Anxious Goose Flesh Skin: 0=Smooth Skin COWS Score: 8 [facility] Progress Note (SOAP) Subjective: 54 years old male admitted on 07/16/19 for alcohol and opaite withdrawal sx management treating with ativan and methadone detox regiments report feeling tired prefers to stay in bed resting today appears confused to place and time ammonia level ordered for tomorrow encourage oral fluid patient has bgm 233 hold insulin coverage due to patient ate 5-10% of food sleeping most of the day Objective: 07/17/19 16:03 Vital Signs Temperature 96.5 F L 07/17/19 12:58 Pulse Rate 65 07/17/19 12:58 Respiratory Rate 18 07/17/19 12:58 Blood Pressure 156/96 07/17/19 12:58 O2 Sat by Pulse Oximetry (%) Laboratory Last Values WBC 3.5 K/mm3 (4.0-10.0) L 07/17/19 07:20 RBC 3.34 M/mm3 (4.00-5.60) L 07/17/19 07:20 Hgb 11.2 GM/dL (11.7-16.9) L 07/17/19 07:20 Hct 33.4 % (35.4-49) L 07/17/19 07:20 MCV 99.8 fl (80-96) H 07/17/19 07:20 MCH 33.5 pg (25.7-33.7) 07/17/19 07:20 MCHC 33.5 g/dl (32.0-35.9) 07/17/19 07:20 RDW 14.7 % (11.9-15.9) D 07/17/19 07:20 Plt Count 208 K/MM3 (134-434) 07/17/19 07:20 MPV 8.2 fl (7.5-11.1) 07/17/19 07:20 Sodium 142 mmol/L (136-145) 07/17/19 07:20 Potassium 3.8 mmol/L (3.5-5.1) 07/17/19 07:20 Chloride 110 mmol/L (98-107) H 07/17/19 07:20 Carbon Dioxide 29 mmol/L (21-32) 07/17/19 07:20 Anion Gap 3 MMOL/L (8-16) L 07/17/19 07:20 BUN 15.6 mg/dL (7-18) 07/17/19 07:20 Creatinine 0.7 mg/dL (0.55-1.3) 07/17/19 07:20 Est GFR (CKD-EPI)AfAm 123.13 07/17/19 07:20 Est GFR (CKD-EPI)NonAf 106.24 07/17/19 07:20 POC Glucometer 233 UNITS (80-120) 07/17/19 10:39 Random Glucose 257 mg/dL (74-106) H 07/17/19 07:20 Calcium 8.1 mg/dL (8.5-10.1) L 07/17/19 07:20 Total Bilirubin 0.2 mg/dL (0.2-1) 07/17/19 07:20 AST 40 U/L (15-37) H 07/17/19 07:20 ALT 62 U/L (13-61) H 07/17/19 07:20 Alkaline Phosphatase 73 U/L (45-117) 07/17/19 07:20 Total Protein 6.1 g/dl (6.4-8.2) L 07/17/19 07:20 Albumin 2.1 g/dl (3.4-5.0) L 07/17/19 07:20 RPR Titer Nonreactive (NONREACTIVE) 07/17/19 07:20 lab noted Assessment: 07/17/19 16:04 alcohol and opiate withdrawal Plan: ativan and methadone regiment
[2019-07-17] MEDS: THIAMINE HCL 100 MG TABLET (FP) PO SCH (22:34)
[2019-07-17] MEDS: INSULIN (LEVEMIR) 100 UNITS/ML UNITS SQ SCH (23:09)
[2019-07-18] MEDS: LORazepam 1 MG TABLET PO SCH ×2 (05:32→10:32)
[2019-07-18] MEDS: INSULIN SLIDING SCALE (NOVOLOG) 1 VIAL SQ SCH ×2 (07:39→10:41)
[2019-07-18] MEDS ORDERED: METHADONE HCL 10 MG TABLET (FOR DETOX USE ONLY) PO ONE (10:00)
[2019-07-18] MEDS: PRENATAL VITAMINS W/ FOLIC ACID TABLET (FP) PO SCH (10:32)
[2019-07-18] MEDS: NICOTINE 21 MG/24 HOURS TOPICAL PATCH TD SCH (10:40)
[2019-07-18] MEDS: TOLNAFTATE 1% CREAM 15 GM TUBE TP SCH (10:41)
--- NOTE | 2019-07-18 13:23 | CONSULT ---
[facility] Psychiatric Consult - Data Date of interview: 07/18/19 Admission source: [facility] Identifying data: Revisit to [facility] and admission to [address] [place] [address] for this 54 y/o AA male self-referred for detoxification treatment. [place]GL[place] issues : cocaine, alcohol, nicotine. Patient is single, father of two, homeless, unemployed and supported on [facility] benefits (as per records but, in interview, the patient denies having financial assistance). Substance Abuse History: Discussed with patient. Details in current [facility] report as follows : Smoking history: Current every day smoker. Have you smoked in the past 12 months: Yes. Aproximately how many cigarettes per day: 20. Cigars Per Day: 0. Hx Chewing Tobacco Use: No. Initiated information on smoking cessation : Yes. 'Breaking Loose' booklet given: 07/16/19 (give on floor). - Substance & Tx. History. Hx Alcohol Use: Yes. Hx Substance Use: Yes. Substance Use Type : Alcohol, Cocaine, Heroin. Hx Substance Use Treatment: Yes (detox, rehab). - Substances abused. Alcohol. Substance route: Oral. Frequency: Daily. Amount used: 1 pint of liquor. Age of first use: 10. Date of last use: . Heroin. Substance route: Inhalation. Frequency: Daily. Amount used: 20 bags. Age of first use: 13. Date of last use: 07/15/19. Cocaine. Substance route: Smoking. Frequency: Daily. Amount used: $200/day. Age of first use: 13. Date of last use: 07/15/19 Medical History: Remarkable for dibetes mellitus. Psychiatric History: Patient is a hostile and uncooperative historian. Patient denies history of psychiatric hospitalizations, suicide attempts or [employer]PD care. However, records at [facility] indicate history of multiple psychiatric hospitalizations, diagnosis of schizophrenia and muliple suicide attempts. Used to be on olanzapine and trazodone. Has not been compliant for months. Physical/Sexual Abuse/Trauma History: No information. Patient refuses. Additional Comment: Urine drug screen results: ALBERT-Cocaine, MOP-Opiates. Noted. Mental Status Exam - Mental Status Exam Alert and Oriented to: Time, Person Cognitive Function: Grossly Intact Patient Appearance: Unkempt Mood: Angry, Hostile, Irritable Affect: Mood Congruent Patient Behavior: Uncooperative, Guarded Speech Pattern: Slurred Voice Loudness: Normal Thought Disorder: Bizarre Hallucinations: Auditory (content not known. Patient declines to elaborate on content) Suicidal Ideation: Denies Homicidal Ideation: Denies Insight/Judgement: Poor, Impaired Sleep: Well Appetite: Poor, Weight loss Gait/Station: Other (slow) Psychiatric Findings - Problem List ([place] 1, 2,3) (1) Schizophrenia Current Visit: Yes Status: Chronic Comment: Non compliant. (2) Opioid dependence Current Visit: Yes Status: Chronic Qualifiers: Substance use status: uncomplicated Qualified Code(s): F11.20 - Opioid dependence, uncomplicated (3) Alcohol use disorder Current Visit: Yes Status: Chronic (4) Cocaine dependence Current Visit: Yes Status: Chronic Qualifiers: Substance use status: uncomplicated Qualified Code(s): F14.20 - Cocaine dependence, uncomplicated (5) Nicotine dependence Current Visit: Yes Status: Chronic Qualifiers: Nicotine product type: cigarettes Substance use status: in withdrawal Qualified Code(s): F17.213 - Nicotine dependence, cigarettes, with withdrawal (6) Non-compliance Current Visit: Yes Status: Chronic - Initial Treatment Plan Initial Treatment Plan: Patient is erratic, disorganized. Admits to hearing voices but refuses to discuss content. Suffres from uncontrolled diabetes mellitus but denies having any medical illness. Impulsive and bizarre. Mr Kiser cannot be managed on a [facility] treatment unit at this time. Patient needs transfer to a psychiatric institution for management and safety. Case discussed with psychiatrist, Dr Del Valle at [facility]. Accepted. Patient will be transferred to the psychiatric section of the ED at [facility]. Via EMS/[employer]. Discussed with the Multidisciplinary treatment team.
--- NOTE | 2019-07-18 15:03 | PN ---
[facility] Progress Note Note: This 54 years old Afro Czech male with history of Schizophrenia non compliance with medication. patient is uncoperative,disoriented to time and place,poor judgement,voice hallucination, posted harm to himself,needed emergency psychiatric admission and evaluation, seen by Dr Song,911 called
[2019-07-18 15:47] VITALS: BP 143/95; PULSE 87; TEMP 97.5
--- NOTE | 2019-07-18 16:43 | DS ---
[facility] Detox Discharge Summary Admission Date: 07/16/19 Discharge Date: 07/18/19 - History Present History: Alcohol Dependence, Opioid Dependence Additional Comments: 54 years old male admitted on 07/16/19 for alcohol and opiate withdrawal sx management treated with ativan and methadone detox regiments patient is distressed with poor ADL's, fatigue low energy alert but guarded appears responding to internal stimuli admitted hearing voices but refused to reveal the content of the voices patient is paranoid and anxious about "must go home now" patient has diabetes but denies having diabetes reject bgm multiple times poor personal hygiene refuses shower it seems that patient perceived dangerousness in detox unit and must leave and "go home" patient is preoccupied by "going home" food writer was unable to perform ciwa and cows due to the patient denies all withdrawal symptoms and unknowing the reason to be in detox facility patient denies medical issues vital signs with long persuasion for cooperation patient refused psychiatric evaluation yesterday due to "nothing wrong with me" without yesterday's 07/17/19 psychiatrist note that the patient is been seen by a psychiatrist who consists with food writer's evaluation that the patient has alteration of mental status of paranoid possible due to schizophrenia without pharmacotherapy case discussed with the team 2 PC is necessary for the safety of the patient and others Pertinent Past History: time for discharge: 2 hours 5 minutes - Physical Exam Results Vital Signs: Vital Signs Temperature 97.5 F L 07/18/19 15:46 Pulse Rate 87 07/18/19 15:46 Respiratory Rate 18 07/18/19 15:46 Blood Pressure 143/95 07/18/19 15:46 O2 Sat by Pulse Oximetry (%) Pertinent Admission Physical Exam Findings: alcohol and opiate withdrawal Laboratory Last Values WBC 3.5 K/mm3 (4.0-10.0) L 07/17/19 07:20 RBC 3.34 M/mm3 (4.00-5.60) L 07/17/19 07:20 Hgb 11.2 GM/dL (11.7-16.9) L 07/17/19 07:20 Hct 33.4 % (35.4-49) L 07/17/19 07:20 MCV 99.8 fl (80-96) H 07/17/19 07:20 MCH 33.5 pg (25.7-33.7) 07/17/19 07:20 MCHC 33.5 g/dl (32.0-35.9) 07/17/19 07:20 RDW 14.7 % (11.9-15.9) D 07/17/19 07:20 Plt Count 208 K/MM3 (134-434) 07/17/19 07:20 MPV 8.2 fl (7.5-11.1) 07/17/19 07:20 Sodium 142 mmol/L (136-145) 07/17/19 07:20 Potassium 3.8 mmol/L (3.5-5.1) 07/17/19 07:20 Chloride 110 mmol/L (98-107) H 07/17/19 07:20 Carbon Dioxide 29 mmol/L (21-32) 07/17/19 07:20 Anion Gap 3 MMOL/L (8-16) L 07/17/19 07:20 BUN 15.6 mg/dL (7-18) 07/17/19 07:20 Creatinine 0.7 mg/dL (0.55-1.3) 07/17/19 07:20 Est GFR (CKD-EPI)AfAm 123.13 07/17/19 07:20 Est GFR (CKD-EPI)NonAf 106.24 07/17/19 07:20 POC Glucometer 143 UNITS (80-120) 07/18/19 10:39 Random Glucose 257 mg/dL (74-106) H 07/17/19 07:20 Calcium 8.1 mg/dL (8.5-10.1) L 07/17/19 07:20 Total Bilirubin 0.2 mg/dL (0.2-1) 07/17/19 07:20 AST 40 U/L (15-37) H 07/17/19 07:20 ALT 62 U/L (13-61) H 07/17/19 07:20 Alkaline Phosphatase 73 U/L (45-117) 07/17/19 07:20 Ammonia 23.50 umol/L (11-32) 07/18/19 08:45 Total Protein 6.1 g/dl (6.4-8.2) L 07/17/19 07:20 Albumin 2.1 g/dl (3.4-5.0) L 07/17/19 07:20 RPR Titer Nonreactive (NONREACTIVE) 07/17/19 07:20 lab noted - Treatment Hospital Course: Detox Protocol Followed Patient has Accepted a Rehab Referral to: [facility] - Medication Discharge Medications: Ambulatory Orders Insulin (Novolog) [Novolog] 0 units SQ AC 07/16/19 Insulin Glargine,Hum.rec.anlog [Lantus Solostar PEN (NF)] 20 units SQ HS Naloxone HCl [Narcan] 4 mg NS ASDIR PRN #1 spray 07/17/19 - Diagnosis (1) Opioid dependence in remission Status: Acute (2) Weight loss Status: Acute (3) Alcohol dependence with withdrawal, uncomplicated Status: Acute (4) HTN (hypertension) Status: Chronic Qualifiers: Hypertension type: essential hypertension Qualified Code(s): I10 - Essential (primary) hypertension (5) IDDM (insulin dependent diabetes mellitus) Status: Chronic (6) Nicotine dependence Status: Acute Qualifiers: Nicotine product type: cigarettes Substance use status: in withdrawal Qualified Code(s): F17.213 - Nicotine dependence, cigarettes, with withdrawal (7) Schizophrenia Status: Acute Qualifiers: Schizophrenia type: paranoid schizophrenia Qualified Code(s): F20.0 - Paranoid schizophrenia (8) Weight loss Status: Acute - AMA Did Patient Leave Against Medical Advice: No
[2019-07-19] MEDS ORDERED: LORazepam 0.5 MG TABLET PO PRN
[2019-07-19] MEDS ORDERED: LORazepam 0.5 MG TABLET PO SCH (05:00)
[2019-07-19] MEDS ORDERED: METHADONE (DETOX) 10 MG, METHADONE (DETOX) 5 MG PO ONE (10:00)
[2019-07-20] MEDS ORDERED: LORazepam 0.5 MG TABLET PO ONE (05:00)
[2019-07-20] MEDS ORDERED: METHADONE HCL 10 MG TABLET (FOR DETOX USE ONLY) PO ONE (10:00)
[2019-07-21] MEDS ORDERED: METHADONE HCL 5 MG TABLET (FOR DETOX USE ONLY) PO ONE (06:00)
== END 2019-07-18 15:59 | DRG 773 ==
LOC: YASAS 10:18 → Y3N 14:45
PROVIDERS: ADMIT Allergy & Immunology; ATTEND Allergy & Immunology
PROC: HZ2ZZZZ Detoxification Services for Substance Abuse Treatment (ICD-10-PCS; principal; 2019-07-16)
DX: F11.23 Opioid dependence with withdrawal (principal); F10.230 Alcohol dependence with withdrawal, uncomplicated; F14.20 Cocaine dependence, uncomplicated; F17.213 Nicotine dependence, cigarettes, with withdrawal; F20.0 Paranoid schizophrenia; I10 Essential (primary) hypertension; E11.9 Type 2 diabetes mellitus without complications; B35.3 Tinea pedis; R63.4 Abnormal weight loss; R46.0 Very low level of personal hygiene; M25.512 Pain in left shoulder; G89.29 Other chronic pain; Z86.59 Personal history of other mental and behavioral disorders; Z79.4 Long term (current) use of insulin; Z91.14 Patient's other noncompliance with medication regimen; Z91.013 Allergy to seafood; Z91.5 Personal history of self-harm; Z59.0 Homelessness
CPT/HCPCS: 36415; 80053; 82140; 82962; 85027; 86593; 93005; 93010

== ENCOUNTER 2019-07-18 16:23 | Emergency (ER) | payer OTHER ==
[2019-07-18 16:47] VITALS: BP 138/82; PULSE 77; TEMP 97; BMI 25.6
--- NOTE | 2019-07-18 17:39 | PDOC ---
History of Present Illness - General Chief Complaint: Weakness Stated Complaint: WEAKNESS Time Seen by Provider: 07/18/19 17:34 - History of Present Illness Initial Comments: 07/18/19 17:38 54 yo M PMH opiate, alcohol, and cocaine use disorder (smokes cocaine and heroin , last use several days ago), IDDM, paranoid schizophrenia on Zyprexa (last taken one week ago), seen at [facility] for detox from 07/16 to 07/18. There was concern that the patient was refusing any medications or treatment and repeating that he wanted to go home, despite being homeless. Furthermore, there was concern that the patient might be responding to internal stimuli. Patient was adamant that he did not want to stay or continue detox, so he was discharged and referred to [facility]. Patient denies hearing or seeing things that aren't there, and further denies HI /SI. Reports that he has a refill of his Zyprexa at his pharmacy and has somewhere to go in [place]. Denies any medical issues, reports feeling "completely fine", and refuses any physical or laboratory examination. Past History - Past Medical History Allergies/Adverse Reactions: Allergies Allergy/AdvReac Type Severity Reaction Status Date / Time Fish Containing Products Allergy Intermediate Hives Verified 07/16/19 11:25 No Known Drug Allergies Allergy Verified 05/31/19 16:40 Home Medications: Ambulatory Orders Insulin (Novolog) [Novolog] 0 units SQ AC 07/16/19 Insulin Glargine,Hum.rec.anlog [Lantus Solostar PEN (NF)] 20 units SQ HS Naloxone HCl [Narcan] 4 mg NS ASDIR PRN #1 spray 07/17/19 Anemia: No Asthma: No Cancer: No Cardiac Disorders: No CVA: No COPD: No CHF: No Dementia: No Diabetes: Yes (HOB=[id number] - has not had insulin in several days) GI Disorders: No Disorders: No HTN: No Hypercholesterolemia: No Kidney Stones: No Liver Disease: No Psychiatric Problems: Yes Seizures: No Thyroid Disease: No - Surgical History Abdominal Surgery: No Appendectomy: No Cardiac Surgery: No Cholecystectomy: No Lung Surgery: No Neurologic Surgery: No Orthopedic Surgery: Yes (L shoulder dislocation sx 30 yrs ago.) - Reproductive History Testicular Surgery: No - Immunization History Immunization Up to Date: Yes - Psycho Social/Smoking Cessation Hx Smoking History: Current every day smoker Have you smoked in the past 12 months: Yes Number of Cigarettes Smoked Daily: 20 Cigars Per Day: 0 Information on smoking cessation initiated: Yes 'Breaking Loose' booklet given: 07/16/19 (give on floor) Hx Alcohol Use: No Drug/Substance Use Hx: Yes Substance Use Type: Alcohol, Cocaine, Heroin Hx Substance Use Treatment: Yes (detox, rehab) Review of Systems - Review of Systems Able to Perform ROS?: Yes Comments:: 07/18/19 18:09 GENERAL/CONSTITUTIONAL: denies fever, chills, diaphoresis, generalized weakness , malaise, loss of appetite, weight change HEAD, EYES, EARS, NOSE AND THROAT: denies rhinorrhea, nasal congestion, throat pain, throat swelling, difficulty swallowing, mouth swelling, ear pain, eye pain , visual changes NEUROLOGIC: denies headache, focal weakness or paresthesias, dizziness, unsteady gait, seizure, mental status changes CARDIOVASCULAR: denies chest pain, syncope, palpitations, irregular heart rate, lightheadedness, peripheral edema RESPIRATORY: denies cough, shortness of breath, dyspnea with exertion, wheezing GASTROINTESTINAL: denies abdominal pain, abdominal distension, nausea, vomiting , diarrhea, constipation GENITOURINARY: denies dysuria, frequency, urgency, hesitancy, hematuria, flank pain, genital pain MUSCULOSKELETAL: denies myalgia, arthralgia, joint swelling, back pain, neck pain SKIN: denies rash, itching, pallor HEMATOLOGIC/IMMUNOLOGIC: denies easy bleeding, easy bruising, lymphadenopathy, frequent infections ENDOCRINE: denies unexplained weight gain, unexplained weight loss, heat intolerance, cold intolerance PSYCHIATRIC: denies anxiety, depression, suicidal or homicidal ideation, hallucinations *Physical Exam - Vital Signs Last Vital Signs Temp Pulse Resp BP Pulse Ox 97 F L 77 18 138/82 98 07/18/19 16:42 07/18/19 16:42 07/18/19 16:42 07/18/19 16:42 07/18/19 16:42 - Physical Exam 07/18/19 18:01 GENERAL: Awake, alert, and fully oriented, in no acute distress. Unkempt, malodorous. HEAD: Normal with no signs of trauma. LUNGS: Patient refuses HEART: Patient refuses. ABDOMEN: Patient refuses NEUROLOGICAL: Oriented X3 to his name, place, and reason for being here PSYCHIATRIC: Cooperative. Good eye contact. SKIN: Warm, dry Medical Decision Making - Medical Decision Making 07/18/19 18:04 Patient denies any medical issues and states he would like to go home. Is orientedX3 and denies internal stimuli, HI, and SI. Refuses all testing or examination. Patient currently has capacity to make this decision. Will send prescriptions to [facility] to ensure he gets his medications, and then discharge to further outpatient workup. Discharge - Discharge Information Problems reviewed: Yes Clinical Impression/Diagnosis: Schizophrenia, Opioid dependence, Cocaine dependence, Alcohol use disorder Condition: Stable Disposition: HOME - Admission No - Follow up/Referral Referrals: Vasyl Phillips DO [Primary Care Provider] - - Patient Discharge Instructions Patient Printed Discharge Instructions: DI for Schizophrenia Additional Instructions: You were seen due to concern for possible internal stimuli. You denied hearing or seeing anything that wasn't there, and further denied any thoughts of hurting yourself or others. Please follow up with your primary care doctor and your psychiatrist within one week. Return to the ED if you develop worsening symptoms. - Post Discharge Activity
--- NOTE | 2019-07-18 18:41 | PDOC ---
Documentation entered by Lai Ramirez SCRIBE, acting as scribe for Quiana Pitt MD. Quiana Pitt MD: This documentation has been prepared by the James rodrigues Angel, SCRIBE, under my direction and personally reviewed by me in its entirety. I confirm that the documentation accurately reflects all work, treatment, procedures, and medical decision making performed by me. Attending Attestation - Resident Resident Name: Ngoc Godinez - ED Attending Attestation I have performed the following: I have examined & evaluated the patient, The case was reviewed & discussed with the resident, I agree w/resident's findings & plan, Exceptions are as noted - HPI HPI: 07/18/19 18:39 54-year-old male who was just discharged from [facility] earlier today presents to our emergency room because he needed prescription refills of his insulin and Zyprexa - Physicial Exam PE: 07/18/19 18:41 Disheveled appearing 54-year-old male looking older than stated age Head normocephalic atraumatic He is edentulous with no teeth in either maxillary mandibular arch Neuro he is alert and ambulating in the emergency department - Medical Decision Making 07/18/19 18:42 He lives in the [place] and his pharmacy is in the [place] therefore we will send a prescription for his Levemir and Zyprexa to our [facility] that he can pick it up immediately
== END 2019-07-18 18:38 | disposition home or self-care (01) ==
LOC: JER 16:23
DX: E11.9 Type 2 diabetes mellitus without complications (principal); F20.9 Schizophrenia, unspecified; Z79.4 Long term (current) use of insulin; F11.20 Opioid dependence, uncomplicated; F14.20 Cocaine dependence, uncomplicated; F10.20 Alcohol dependence, uncomplicated; Z91.013 Allergy to seafood
CPT/HCPCS: 99283-25